=== PATIENT | male | born 1985 | race Caucasian/White ===

== ENCOUNTER 2019-09-17 20:07 | Emergency (ER) | payer OTHER ==
[~2019-09-17] VITALS: Ht 172.7 cm; Wt 100.0 kg
[2019-09-17 21:33] LABS: BASO # 0.1 10^3/uL (0.0-0.2); BASO % 0.4 % (0.0-1.0); EOS # 0.2 10^3/uL (0.0-0.5); EOS % 1.2 % (0.0-3.0); HEMATOCRIT 43.7 % (42.0-52.0); HEMOGLOBIN 15.2 g/dl (13.5-17.5); LYMPH # 2.2 10^3/uL (1.5-5.0); LYMPH % 16.7 % (24.0-44.0); MEAN CORPUSCULAR HEMOGLOBIN 30.1 pg (27.0-33.0); MEAN CORPUSCULAR HGB CONC 34.8 g/dl (32.0-36.5); MEAN CORPUSCULAR VOLUME 86.5 fl (80.0-96.0); MONO # 0.8 10^3/uL (0.0-0.8); NEUTROPHILS # 9.7 10^3/uL (1.5-8.5); NEUTROPHILS % 74.8 % (36.0-66.0); PLATELET COUNT, AUTOMATED 261 10^3/uL (150-450); RED BLOOD COUNT 5.05 10^6/uL (4.30-6.10); WHITE BLOOD COUNT 12.9 10^3/uL (4.0-10.0)
[2019-09-17 21:40] VITALS: BP 141/83
[2019-09-17] MEDS ORDERED: NS 1,000 ML IV ONE (21:45)
[2019-09-17] MEDS ORDERED: ONDANSETRON 4 MG ORAL DISINTEGRATING TAB (Q0162 PER 1MG) PO ONE (22:15)
[2019-09-17 22:38] LABS: AMPHETAMINES LEVEL URINE NEGATIVE (NEGATIVE); BARBITURATES URINE NEGATIVE (NEGATIVE); BENZODIAZEPINES URINE NEGATIVE (NEGATIVE); CANNABINOIDS URINE POSITIVE (NEGATIVE); COCAINE METABOLITE URINE NEGATIVE (NEGATIVE); METHADONE URINE NEGATIVE (NEGATIVE); OPIATES URINE NEGATIVE (NEGATIVE); PHENCYCLIDINE URINE NEGATIVE (NEGATIVE)
[2019-09-17 22:40] LABS: ALBUMIN 3.9 GM/DL (3.2-5.2); ALT/SGPT 51 U/L (12-78); BILIRUBIN,DIRECT < 0.1 MG/DL (0.0-0.2); BILIRUBIN,TOTAL 0.3 MG/DL (0.2-1.0); BLOOD UREA NITROGEN 10 MG/DL (7-18); CARBON DIOXIDE LEVEL 29 MEQ/L (21-32); CHLORIDE LEVEL 106 MEQ/L (98-107); CREATININE FOR GFR 1.04 MG/DL (0.70-1.30); GLOMERULAR FILTRATION RATE > 60.0 (>60); GLUCOSE, FASTING 95 MG/DL (70-100); SODIUM LEVEL 141 MEQ/L (136-145)
--- NOTE | 2019-09-18 18:55 | ECGEPIP ---
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
== END 2019-09-17 23:32 | disposition home or self-care (01) ==
LOC: M ED 20:07
DX: F12.288 Cannabis dependence with other cannabis-induced disorder (principal); F41.9 Anxiety disorder, unspecified
CPT/HCPCS: 80047; 80048; 80076; 80307; 85025; 93005; 96360; 99284; Q0162

== ENCOUNTER 2019-09-19 22:48 | Emergency (ER) | payer OTHER ==
[~2019-09-19] VITALS: Ht 172.7 cm; Wt 104.5 kg
[2019-09-19] MEDS ORDERED: BUSP10TA PO (23:14)
[2019-09-19] MEDS ORDERED: OMEP-218 PO (23:14)
[2019-09-19] MEDS ORDERED: GABA600T4 PO (23:14)
[2019-09-19] MEDS ORDERED: QUET400T PO (23:14)
[2019-09-19] MEDS ORDERED: DULO1CAP6 PO (23:14)
[2019-09-19] MEDS ORDERED: TIZA4TAB4 PO (23:14)
[2019-09-19] MEDS ORDERED: LISI10TA4 PO (23:14)
[2019-09-19] MEDS ORDERED: MELO15TA28 PO (23:14)
[2019-09-19] MEDS ORDERED: TRAZ-252 PO (23:14)
[2019-09-19] MEDS ORDERED: CYCL10TA PO (23:14)
--- NOTE | 2019-09-19 23:37 | REPVR ---
PROCEDURE INFORMATION: Exam: CT Head Without Contrast Exam date and time: 09/19/2019 11:10 PM Age: 33 years old Clinical indication: Other: Syncope; Prior surgery; Surgery date: 6+ months; Surgery type: Skull SX as a baby TECHNIQUE: Imaging protocol: Computed tomography of the head without contrast. Radiation optimization: All CT scans at this facility use at least one of these dose optimization techniques: automated exposure control; mA and/or kV adjustment per patient size (includes targeted exams where dose is matched to clinical indication); or iterative reconstruction. COMPARISON: No relevant prior studies available. FINDINGS: Brain: There is no evidence of intracranial bleed. The trevino-white differentiation appears preserved. There is a linear area of atrophy with CSF density projecting from the bur hole into the left frontal lobe consistent with postsurgical change. There is no evidence of mass effect. Ventricles: Normal-appearing ventricles. Bones/joints: There is evidence of a old day hole left frontal bone near the vertex. Sinuses: There is mucosal thickening posterior left maxillary sinus. Mastoid air cells: The mastoid air cells appear clear. Soft tissues: Unremarkable. IMPRESSION: Chronic changes as described above. Electronically signed by: Luis Moctezuma On 09/19/2019 23:37:03 PM
[2019-09-19 23:43] LABS: BASO % 0.4 % (0.0-1.0); EOS # 0.3 10^3/uL (0.0-0.5); EOS % 3.5 % (0.0-3.0); HEMATOCRIT 43.9 % (42.0-52.0); HEMOGLOBIN 14.8 g/dl (13.5-17.5); LYMPH # 3.6 10^3/uL (1.5-5.0); MEAN CORPUSCULAR HEMOGLOBIN 29.5 pg (27.0-33.0); MEAN CORPUSCULAR HGB CONC 33.7 g/dl (32.0-36.5); MEAN CORPUSCULAR VOLUME 87.5 fl (80.0-96.0); MONO # 0.7 10^3/uL (0.0-0.8); MONO % 7.6 % (0.0-5.0); NEUTROPHILS # 4.4 10^3/uL (1.5-8.5); NEUTROPHILS % 48.1 % (36.0-66.0); PLATELET COUNT, AUTOMATED 257 10^3/uL (150-450); RED BLOOD COUNT 5.02 10^6/uL (4.30-6.10); WHITE BLOOD COUNT 9.1 10^3/uL (4.0-10.0)
[2019-09-20] MEDS ORDERED: LR 1,000 ML IV ONE
[2019-09-20 00:25] LABS: BLOOD UREA NITROGEN 12 MG/DL (7-18); CALCIUM LEVEL 8.9 MG/DL (8.5-10.1); CARBON DIOXIDE LEVEL 26 MEQ/L (21-32); CHLORIDE LEVEL 108 MEQ/L (98-107); CREATININE FOR GFR 0.96 MG/DL (0.70-1.30); GLOMERULAR FILTRATION RATE > 60.0 (>60); GLUCOSE, FASTING 125 MG/DL (70-100); POTASSIUM SERUM 3.7 MEQ/L (3.5-5.1); SODIUM LEVEL 142 MEQ/L (136-145)
[2019-09-20 01:47] VITALS: BP 121/77
--- NOTE | 2019-09-20 07:59 | ECGEPIP ---
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
== END 2019-09-20 01:48 | disposition home or self-care (01) ==
LOC: M ED 22:48
DX: R55 Syncope and collapse (principal); F33.9 Major depressive disorder, recurrent, unspecified; F41.9 Anxiety disorder, unspecified; M51.37 Other intervertebral disc degeneration, lumbosacral region; Z79.899 Other long term (current) drug therapy; Z87.891 Personal history of nicotine dependence

== ENCOUNTER 2019-09-22 23:36 | Emergency (ER) | payer OTHER ==
[~2019-09-22] VITALS: Ht 172.7 cm; Wt 106.7 kg
[~2019-09-22 23:36] MED LIST: BUSP10TA PO; CYCL10TA PO; DULO1CAP6 PO; GABA600T4 PO; LISI10TA4 PO; MELO15TA28 PO; OMEP-218 PO; QUET400T PO; TIZA4TAB4 PO; TRAZ-252 PO
[2019-09-23 00:46] LABS: BASO # 0.1 10^3/uL (0.0-0.2); BASO % 0.6 % (0.0-1.0); EOS # 0.3 10^3/uL (0.0-0.5); EOS % 3.2 % (0.0-3.0); HEMATOCRIT 42.8 % (42.0-52.0); HEMOGLOBIN 14.8 g/dl (13.5-17.5); LYMPH # 3.5 10^3/uL (1.5-5.0); LYMPH % 40.6 % (24.0-44.0); MEAN CORPUSCULAR HEMOGLOBIN 30.5 pg (27.0-33.0); MEAN CORPUSCULAR HGB CONC 34.6 g/dl (32.0-36.5); MEAN CORPUSCULAR VOLUME 88.2 fl (80.0-96.0); MONO # 0.6 10^3/uL (0.0-0.8); MONO % 7.3 % (0.0-5.0); NEUTROPHILS # 4.1 10^3/uL (1.5-8.5); NEUTROPHILS % 47.6 % (36.0-66.0); PLATELET COUNT, AUTOMATED 243 10^3/uL (150-450); RED BLOOD COUNT 4.85 10^6/uL (4.30-6.10); WHITE BLOOD COUNT 8.6 10^3/uL (4.0-10.0)
[2019-09-23 01:09] LABS: ALBUMIN 3.9 GM/DL (3.2-5.2); ALT/SGPT 49 U/L (12-78); BILIRUBIN,DIRECT < 0.1 MG/DL (0.0-0.2); BILIRUBIN,TOTAL 0.2 MG/DL (0.2-1.0); BLOOD UREA NITROGEN 12 MG/DL (7-18); CALCIUM LEVEL 8.9 MG/DL (8.5-10.1); CARBON DIOXIDE LEVEL 27 MEQ/L (21-32); CHLORIDE LEVEL 111 MEQ/L (98-107); CREATININE FOR GFR 0.97 MG/DL (0.70-1.30); GLOMERULAR FILTRATION RATE > 60.0 (>60); GLUCOSE, FASTING 113 MG/DL (70-100); POTASSIUM SERUM 3.6 MEQ/L (3.5-5.1); SODIUM LEVEL 143 MEQ/L (136-145); TOTAL PROTEIN 7.1 GM/DL (6.4-8.2)
[2019-09-23] MEDS ORDERED: ISOVUE-370 76% 100ML VIAL (Q9967) As Ordered ONE (01:41)
--- NOTE | 2019-09-23 02:12 | REPVR ---
PROCEDURE INFORMATION: Exam: CT Angiography Chest With Contrast Exam date and time: 09/23/2019 1:38 AM Age: 33 years old Clinical indication: Shortness of breath; Additional info: Chest pain, SOB, tachycardic TECHNIQUE: Imaging protocol: Computed tomographic angiography of the chest with intravenous contrast. 3D rendering: MIP and/or 3D reconstructed images were created by the technologist. Radiation optimization: All CT scans at this facility use at least one of these dose optimization techniques: automated exposure control; mA and/or kV adjustment per patient size (includes targeted exams where dose is matched to clinical indication); or iterative reconstruction. Contrast material: ISO; Contrast volume: 75 ml; Contrast route: AC; COMPARISON: CR Chest, 2 view PA, Lat 09/23/2019 12:11 AM FINDINGS: Pulmonary arteries: No focal pulmonary artery filling defect to suggest acute pulmonary embolus. Aorta: No thoracic aortic aneurysm or dissection. Lungs: Pulmonary vascular/interstitial pattern does not suggest active pulmonary edema. No suspicious lung mass or air space process. No central endobronchial lesion. Pleural space: No pleural effusion or pneumothorax. Heart: No overt cardiac enlargement or abnormal volume of pericardial fluid. Liver: Liver demonstrates fatty infiltration with focal sparing around the gallbladder fossa. Lymph nodes: No enlarged mediastinal lymph nodes. Bones/joints: Bony structures show no acute fracture or destructive process. Soft tissues: Unremarkable. IMPRESSION: 1. No evidence of acute pulmonary embolus. 2. No other acute or concerning focal intrathoracic abnormality. Electronically signed by: Demetrius Martínez On 09/23/2019 02:11:52 AM
[2019-09-23 03:12] VITALS: BP 117/72
--- NOTE | 2019-09-23 06:59 | REP ---
Clinical: Cough and dyspnea . Comparison: None . Technique: PA and lateral. Findings: The mediastinum and cardiac silhouette are normal. The lung salgado are clear and without acute consolidation, effusion, or pneumothorax. The skeletal structures are intact and normal. Impression: 1. No acute cardiopulmonary process. Electronically Signed by Rell Martinez MD 09/23/2019 06:50 A
--- NOTE | 2019-09-23 20:11 | ECGEPIP ---
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
[2019-09-24] MEDS ORDERED: PROM25TA12 PO (15:43)
== END 2019-09-23 03:23 | disposition home or self-care (01) ==
LOC: M ED 23:36
DX: F41.1 Generalized anxiety disorder (principal); F39 Unspecified mood [affective] disorder; F25.9 Schizoaffective disorder, unspecified; M54.5 Low back pain; Z79.899 Other long term (current) drug therapy
CPT/HCPCS: 36415; 71046; 71275; 80048; 80076; 85025; 93005; 93041; 94760; 99285; Q9967

== ENCOUNTER 2019-09-24 11:52 | Emergency (ER) | payer OTHER ==
[~2019-09-24] VITALS: Ht 172.7 cm; Wt 99.2 kg
[2019-09-24] MEDS ORDERED: LORazepam 1 MG TAB PO STA (12:32)
[2019-09-24] MEDS ORDERED: ONDANSETRON 4 MG ORAL DISINTEGRATING TAB (Q0162 PER 1MG) PO ONE (12:45)
[2019-09-24] MEDS ORDERED: PROMETHAZINE 25 MG TAB PO ONE ×2 (13:15→13:30)
[2019-09-24] MEDS ORDERED: PROM25TA12 PO (15:43)
[2019-09-24 15:48] VITALS: BP 139/82
== END 2019-09-24 15:49 | disposition home or self-care (01) ==
LOC: M ED 11:52
DX: F41.1 Generalized anxiety disorder (principal); F33.9 Major depressive disorder, recurrent, unspecified; F20.9 Schizophrenia, unspecified; Z79.899 Other long term (current) drug therapy
CPT/HCPCS: 99283; Q0162

== ENCOUNTER 2019-09-29 19:19 | Emergency (ER) | payer OTHER ==
[~2019-09-29] VITALS: Ht 172.7 cm; Wt 104.5 kg
[~2019-09-29 19:19] MED LIST changes: +PROM25TA12 PO
[2019-09-29 19:58] LABS: HEMATOCRIT 50.9 % (42.0-52.0); HEMOGLOBIN 17.5 g/dl (13.5-17.5); MEAN CORPUSCULAR HEMOGLOBIN 29.7 pg (27.0-33.0); MEAN CORPUSCULAR HGB CONC 34.4 g/dl (32.0-36.5); MEAN CORPUSCULAR VOLUME 86.4 fl (80.0-96.0); PLATELET COUNT, AUTOMATED 354 10^3/uL (150-450); RED BLOOD COUNT 5.89 10^6/uL (4.30-6.10); WHITE BLOOD COUNT 18.4 10^3/uL (4.0-10.0)
[2019-09-29] MEDS ORDERED: NS 1,000 ML IV ONE (20:00)
[2019-09-29 20:33] LABS: ATYPICAL LYMPH 8 % (0-5); LYMPHOCYTES 23 % (16-44); MONOCYTES 6 % (0-5); NEUTROPHILS 63 % (28-66)
[2019-09-29 20:34] LABS: ANISOCYTOSIS 1+
[2019-09-29 20:35] LABS: PLATELET ESTIMATE NORMAL (NORMAL); TEAR DROP CELLS 1+
[2019-09-29 20:38] LABS: BLOOD UREA NITROGEN 26 MG/DL (7-18); CALCIUM LEVEL 9.8 MG/DL (8.5-10.1); CARBON DIOXIDE LEVEL 29 MEQ/L (21-32); CHLORIDE LEVEL 100 MEQ/L (98-107); CREATININE FOR GFR 1.22 MG/DL (0.70-1.30); GLOMERULAR FILTRATION RATE > 60.0 (>60); GLUCOSE, FASTING 106 MG/DL (70-100); POTASSIUM SERUM 4.1 MEQ/L (3.5-5.1); SODIUM LEVEL 135 MEQ/L (136-145)
[2019-09-29 21:30] VITALS: BP 114/68
--- NOTE | 2019-09-30 05:45 | ECGEPIP ---
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
== END 2019-09-29 21:48 | disposition home or self-care (01) ==
LOC: M ED 19:19
DX: E86.0 Dehydration (principal); I95.1 Orthostatic hypotension; F41.1 Generalized anxiety disorder; Z79.899 Other long term (current) drug therapy; F17.210 Nicotine dependence, cigarettes, uncomplicated

== ENCOUNTER 2019-10-10 00:32 | Inpatient (IN) | payer OTHER ==
[~2019-10-10] VITALS: Ht 172.7 cm; Wt 104.5 kg
[2019-10-10 01:07] LABS: BASO # 0.1 10^3/uL (0.0-0.2); BASO % 0.6 % (0.0-1.0); EOS # 0.2 10^3/uL (0.0-0.5); EOS % 2.6 % (0.0-3.0); HEMOGLOBIN 14.2 g/dl (13.5-17.5); LYMPH % 45.1 % (24.0-44.0); MEAN CORPUSCULAR HEMOGLOBIN 30.2 pg (27.0-33.0); MEAN CORPUSCULAR HGB CONC 34.6 g/dl (32.0-36.5); MEAN CORPUSCULAR VOLUME 87.2 fl (80.0-96.0); MONO # 0.8 10^3/uL (0.0-0.8); MONO % 8.5 % (0.0-5.0); NEUTROPHILS # 3.7 10^3/uL (1.5-8.5); PLATELET COUNT, AUTOMATED 243 10^3/uL (150-450); WHITE BLOOD COUNT 8.9 10^3/uL (4.0-10.0)
[2019-10-10 01:40] LABS: ABG BASE EXCESS -0.3 (-2.0-2.0); ABG HCO3 24.2 MEQ/L (22.0-26.0); ABG O2 SATURATION 94.7 % (95.0-99.0); ABG PARTIAL PRESSURE CO2 39.4 mmHg (35.0-45.0); ABG PARTIAL PRESSURE O2 70.4 mmHg (75.0-100.0); ABG STANDARD HCO3 24.2 MEQ/L (22.0-26.0); ABG TOTAL CO2 25.5 MEQ/L (22.0-29.0); ABG pH (ARTERIAL) 7.407 UNITS (7.350-7.450)
[2019-10-10 01:42] LABS: BLOOD UREA NITROGEN 12 MG/DL (7-18); CALCIUM LEVEL 9.5 MG/DL (8.5-10.1); CARBON DIOXIDE LEVEL 26 MEQ/L (21-32); CHLORIDE LEVEL 110 MEQ/L (98-107); CK-MB VALUE MASS < 1.0 NG/ML (<3.6); CPK CREATINE PHOSPHOKINASE 54 U/L (39-308); ETHYL ALCOHOL (ETHANOL) < 0.003 % (0.000-0.010); GLOMERULAR FILTRATION RATE > 60.0 (>60); GLUCOSE, FASTING 139 MG/DL (70-100); MB/CK RELATIVE INDEX 1.85 (< OR =4); POTASSIUM SERUM 3.4 MEQ/L (3.5-5.1); SODIUM LEVEL 141 MEQ/L (136-145); TROPONIN I < 0.02 NG/ML (< 0.10)
[2019-10-10] MEDS ORDERED: NS 1,000 ML IV ONE ×2 (02:15→07:45)
[2019-10-10] MEDS ORDERED: ISOVUE-370 76% 100ML VIAL (Q9967) As Ordered ONE (02:18)
[2019-10-10 02:44] LABS: AMPHETAMINES LEVEL URINE NEGATIVE (NEGATIVE); BARBITURATES URINE NEGATIVE (NEGATIVE); BENZODIAZEPINES URINE NEGATIVE (NEGATIVE); CANNABINOIDS URINE NEGATIVE (NEGATIVE); COCAINE METABOLITE URINE NEGATIVE (NEGATIVE); METHADONE URINE NEGATIVE (NEGATIVE); OPIATES URINE NEGATIVE (NEGATIVE); PHENCYCLIDINE URINE NEGATIVE (NEGATIVE)
--- NOTE | 2019-10-10 02:47 | REPVR ---
PROCEDURE INFORMATION: Exam: CT Angiography Chest With Contrast Exam date and time: 10/10/2019 2:13 AM Age: 33 years old Clinical indication: Other: Hypoxia TECHNIQUE: Imaging protocol: Computed tomographic angiography of the chest with intravenous contrast. 3D rendering: MIP and/or 3D reconstructed images were created by the technologist. Radiation optimization: All CT scans at this facility use at least one of these dose optimization techniques: automated exposure control; mA and/or kV adjustment per patient size (includes targeted exams where dose is matched to clinical indication); or iterative reconstruction. Contrast material: ISO; Contrast volume: 75 ml; Contrast route: AC; COMPARISON: CT ANGIO CHEST 09/23/2019 1:45 AM FINDINGS: Pulmonary arteries: The main pulmonary artery measures 32 mm. No pulmonary embolism is identified. Aorta: The ascending thoracic aorta measures 31 mm. Other arteries: The left vertebral artery originates directly from the arch. Lungs: Minimal bibasilar fibro-atelectatic change. Pleural space: Unremarkable. No pneumothorax. No pleural effusion. Heart: Unremarkable. No cardiomegaly. No pericardial effusion. Lymph nodes: Unremarkable. No enlarged lymph nodes. Bones/joints: Unremarkable. No acute fracture. Soft tissues: Unremarkable. IMPRESSION: 1. Minimal bibasilar fibro-atelectatic change. 2. Otherwise negative CTA chest. No acute interval pulmonary embolism is identified since 09/23/2019. Electronically signed by: Raghavendra Julien On 10/10/2019 02:47:32 AM
[2019-10-10] MEDS ORDERED: POTASSIUM CHLORIDE 10 MEQ SR TABLET PO ONE (04:00)
[2019-10-10 04:20] LABS: ALBUMIN 3.7 GM/DL (3.2-5.2); ALT/SGPT 69 U/L (12-78); BILIRUBIN,DIRECT < 0.1 MG/DL (0.0-0.2); BILIRUBIN,TOTAL 0.2 MG/DL (0.2-1.0); MAGNESIUM LEVEL 2.1 MG/DL (1.8-2.4); TOTAL PROTEIN 6.6 GM/DL (6.4-8.2)
[2019-10-10] MEDS ORDERED: TRAM50TA2 PO (04:24)
[2019-10-10] MEDS ORDERED: DULO1CAP5 PO (04:24)
[2019-10-10] MEDS ORDERED: PROAAER10 INH (04:24)
[2019-10-10] MEDS ORDERED: PROM25TA12 PO (04:24)
[2019-10-10 04:26] LABS: HEMOGLOBIN A1c 6.1 %
[2019-10-10] MEDS ORDERED: ACETAMINOPHEN TAB 650MG DOSE (2X325MG) PO PRN (04:30)
[2019-10-10] MEDS ORDERED: NS 1,000 ML IV SCH (05:00)
[2019-10-10] MEDS ORDERED: traMADol 50 MG TAB PO PRN (05:00)
--- NOTE | 2019-10-10 05:02 | HPEPDOC ---
[facility] Medical History & Physical Date of Admission Oct 10, 2019 Date of Service: Oct 10, 2019 Attending Physician: KENNY VALLADARES MD History and Physical CHIEF COMPLAINT: Feelings of heart racing\\palpitations HISTORY OF PRESENT ILLNESS: Patient is a 33-year-old male who presented to the [facility] emergency department for a complaint of feeling of his heart racing. He stated that he went to lie down to go to bed and upon lying down, he felt his heart racing and could feel it pounding out of his chest. He denies any shortness of breath at this time, however, stated that when he gets u p to exert himself he does have some mild redness of breath. He denies any cough. He denies any exposure to sick contacts. He stated that he is recently in the emergency department on 09/29/2019 and was given albuterol inhaler, which is been using 2 puffs a day, 4 times daily. He denies any history of deep vein thrombosis or pulmonary embolism. He states that currently he feels fine resting. In the emergency department EKG demonstrated sinus tachycardia with a heart rate of 139. Patient had oxygen saturations are 96% on room air. An arterial blood gas obtained demonstrated a PaO2 of 70. His CT angiogram demonstrating minimal bibasilar fibrotic changes, but otherwise negative. REVIEW OF SYSTEMS: CONSTITUTIONAL: Denies fevers, chills. Denies unintentional weight loss. Denies night sweats. HEENT:. Denies dysphagia. Denies odynophagia. Denies changes in his vision. Denies migraines. CARDIOVASCULAR:. Denies chest pain, denies chest pressure. Admits to feelings of his heart racing. RESPIRATORY: Admits to shortness of breath on exertion. Denies shortness of breath at rest. Denies cough. Denies wheezing. GASTROINTESTINAL: Denies abdominal pain. Denies nausea, vomiting, diarrhea, constipation. GENITOURINARY:. Denies dysuria, increased frequency or urgency. SKIN:. Denies any rash or lesions. MUSCULOSKELETAL:. Admits to chronic back pain. Denies any muscle weakness. NEUROLOGICAL: Denies any changes in gait or speech. PSYCHIATRIC: Admits to history of depression, anxiety. ENDOCRINE:. Denies heat intolerance, or, cold intolerance. Denies history of diabetes. HEMATOLOGIC/LYMPHATIC: Denies history of easy bruising or bleeding. Denies history deep vein thrombosis or pulmonary embolism. PAST MEDICAL/SURGICAL HISTORY: Chronic Hypertension Chronic back pain. Depression,\\anxiety. Plastic calvarium prosthesis as a child. Screws in his knees. SOCIAL HISTORY: Patient was at home with his . He is a former smoker. He smoked approximately one pack per day since the age of 17 and quit 3 years ago. He does smoke marijuana. He denies any IV or illicit drug use FAMILY HISTORY: Patient's mother. Father are alive. His mother has a history of deep vein thrombosis and pulmonary embolism in the past. He has brothers and sisters who are all alive and well without any known medical conditions. ALLERGIES: Please see below. HOME MEDICATIONS: Please see below. PHYSICAL EXAMINATION: VITAL SIGNS: Temperature 98.8, pulse 126, respiratory rate 18, blood pressure 136\\88, pulse oximetry 96 % on room air. GENERAL APPEARANCE: Patient Is awake, alert and oriented. He does not appear in any acute distress, he is lying comfortable in stretcher. HEENT: Atraumatic, normocephalic. Eyes nonicteric. Trachea is midline. Patient has no teeth. It is mucous membranes are pink and moist. CARDIOVASCULAR:, Normal S1, S2, tachycardic, regular rhythm, no clicks, rubs or murmurs. No JVD. LUNGS:. Clear vesicular breath sounds bilaterally. Good respiratory effort. No wheezes, rhonchi or rales. Symmetric chest expansion. No accessory muscle use. ABDOMEN:. Soft, nondistended, nontender, no rebound tenderness or guarding. Normoactive bowel sounds throughout. EXTREMITIES: No edema, no calf tenderness. Full and equal pulses bilateral upper and lower extremities NEUROLOGICAL: No focal Neurological deficits. PSYCHIATRIC: Mood and Affect are appropriate. LABORATORY DATA: Immature Granulocyte % (Auto) 1.2, Neutrophils (%) (Auto) 42.0, Lymphocytes (%) (Auto) 45.1H, Monocytes (%) (Auto) 8.5H, Eosinophils (%) (Auto) 2.6, Basophils (%) (Auto) 0.6, Neutrophils # (Auto) 3.7, Lymphocytes # (Auto) 4.0, Monocytes # (Auto) 0.8, Eosinophils # (Auto) 0.2, Basophils # (Auto) 0.1, Nucleated Red Blood Cells % (auto) 0.0, Anion Gap 5L, Glomerular Filtration Rate > 60.0, Estimated Mean Plasma Glucose 128H, Hemoglobin A1c 6.1, Calcium Level 9.5, Magnesium Level 2.1, Total Bilirubin 0.2, Direct Bilirubin < 0.1, Aspartate Amino Transf (AST/SGOT) 25, Alanine Aminotransferase (ALT/SGPT) 69, Alkaline Phosphatase 113, Total Creatine Kinase 54, Creatine Kinase MB < 1.0, Creatine Kinase MB Relative Index 1.85, Troponin I < 0.02, C-Reactive Protein, Quantitative 0.30, Total Protein 6.6, Albumin 3.7, Albumin/Globulin Ratio 1.28, Ethyl Alcohol Level < 0.003 Blood Gas Bicarbonate Standard 24.2, Arterial Blood pH 7.407, Arterial Blood Partial Pressure CO2 39.4, Arterial Blood Partial Pressure O2 70.4L, Arterial Blood Total CO2 25.5, Arterial Blood HCO3 24.2, Arterial Blood Base Excess -0.3, Arterial Blood Oxygen Saturation 94.7L Urine Opiates Screen NEGATIVE, Urine Methadone Screen NEGATIVE, Urine Barbiturates Screen NEGATIVE, Urine Phencyclidine Screen NEGATIVE, Urine Amphetamines Screen NEGATIVE, Urine Benzodiazepines Screen NEGATIVE, Urine Cocaine Metabolite Screen NEGATIVE, Urine Cannabinoids Screen NEGATIVE IMAGING: CT Angiography Chest With Contrast COMPARISON: CT ANGIO CHEST 09/23/2019 "IMPRESSION: 1. Minimal bibasilar fibro-atelectatic change. 2. Otherwise negative CTA chest. No acute interval pulmonary embolism is identified since 09/23/2019. " MICROBIOLOGY: 10/10/19 Respiratory Virus Panel (PCR) ([facility]), Received Pending ASSESSMENT: Patient is a 33-year-old male who presented with complaints of feeling to his heart racing and will be admitted for evaluation of tachycardia and hypoxia. PLAN: 1. Tachycardia. -Patient is tachycardic with a rate of 134 on admission. Review of his previous hospital visits indicated that he has a heart rate of 120 at baseline. CTA obtained in the ER today and on 09/23/2019 were both negative for pulmonary embolism. Patient has no history of sick contacts. No cough. No fever, no elevation in his white blood cell count. Infectious etiology is unlikely, although cannot be completely ruled out -Will place on telemetry monitoring overnight -Will avoid nebulizers, given patient's tachycardia, currently no wheezing on exam -Patient is on Seroquel daily at bedtime this medication can cause orthostatic hypotension and tachycardia. Patient has been in the ER several times for similar complaints. Will hold Seroquel overnight. 2. Hypoxia -Differential includes early pneumonia, viral infection, chronic alveolar hypoventilation, early interstitial lung disease, asthma, Carbon Monoxide poisoning -CT imaging demonstrating some fibro-atelectatic changes in the bibasilar segments of the lungs. This appears to be present on patient's previous imaging as well. He has a history of smoking as well as chronic cannabinoid use. Signif icant of these findings is unclear -Atrial blood gas obtained in the emergency department demonstrating a PaO2 of 70 which correlates approximately with a SPO2 of 95% -Patient currently denying any shortness of breath, however, states he has some short of breath on exertion -Continuous pulse oximetry -Will check Carboxyhemoglobin -Respiratory panel is pending 3. Chronic Hypertension -Will continue patient's home lisinopril 4. Mild Hypokalemia -Possibly due to nebs -K is 3.4. -We'll replete & f/u Mag 5. Chronic back pain -Will continue patient's meloxicam, tizanidine, tramadol, gabapentin 6. Depression & anxiety -Continue patient's buspirone and duloxetine -Will hold patient's Seroquel as reported side effects include orthostatic hypotension and tachycardia DVT prophylaxis: Heparin subcutaneous Dispo: likely home after less than 2 midnight's stay. Home Medications Scheduled Buspirone HCl (Buspirone HCl) 10 Mg Tablet, 10 MG PO TID Cyclobenzaprine HCl (Cyclobenzaprine HCl) 10 Mg Tablet, 10 MG PO BID Duloxetine Hcl (Duloxetine HCl) 60 Mg Capsule.dr, 60 MG PO DAILY TAKES WITH A 30MG FOR 90MG TOTAL: INCREASED FROM 60MG TO 90MG ON 10/09/2019 Duloxetine Hcl (Duloxetine HCl) 30 Mg Capsule.dr, 30 MG PO DAILY TAKES WITH 60MG FOR 90MG TOTAL; INCREASED FROM 60MG TO 90MG ON 10/09/2019. HAS NOT STARTED YET. Gabapentin (Gabapentin) 600 Mg Tablet, 600 MG PO TID Lisinopril (Lisinopril) 10 Mg Tablet, 10 MG PO QHS Meloxicam (Meloxicam) 15 Mg Tablet, 15 MG PO DAILY TAKES AT NOON Omeprazole (Omeprazole) 20 Mg Capsule.dr, 20 MG PO BID Quetiapine Fumarate (Quetiapine Fumarate) 400 Mg Tablet, 400 MG PO QHS Tizanidine HCl (Tizanidine HCl) 4 Mg Tablet, 4 MG PO TID Trazodone HCl (Trazodone HCl) 50 Mg Tablet, 50 MG PO QHS Scheduled PRN Albuterol Sulfate (Proair Hfa) 8.5 Gm Hfa.aer.ad, 2 PUFF INH QID PRN for SHORTNESS OF BREATH Promethazine HCl (Promethazine HCl) 25 Mg Tablet, 25 MG PO Q6H PRN for NAUSEA OR VOMITING Tramadol HCl (Tramadol HCl) 50 Mg Tablet, 50 MG PO BID PRN for PAIN HAS NOT STARTED YET Allergies Coded Allergies: No Known Allergies (Unverified , 09/17/19) A-FIB/CHADSVASC A-FIB History Current/History of A-Fib/PAF?: No GME ATTESTATION GME ATTESTATION My faculty preceptor for this patient encounter was physically present during the encounter and was fully available. All aspects of the patient interview, examination, medical decision making process, and medical care plan development were reviewed and approved by the faculty preceptor. The faculty preceptor is aware and concurs with the plan as stated in the body of this note and will attest to such by his/her cosignature. ATTENDING NOTE Please see my addendum from 10/10/19 I reviewed and edited the H&P and agree with the findings as documented. JOSEFINA SMITH DO Oct 10, 2019 05:02 KENNY VALLADARES MD Oct 10, 2019 19:39
--- NOTE | 2019-10-10 05:05 | IPNPDOC ---
Text Note Date of Service The patient was seen on 10/10/19. NOTE Mr. Daniel is a 33 yr old w a hx of chronic HTN, obesity, anxiety who presen shoshana w c/o of palpitations. He has been coughing for several weeks and was prescribed inhalers; he denies having a hx of COPD or Asthma and was not able to explain why he was prescribed inhalers. Per d/w he had dyspnea on exertion and his ABG showed a PCO2 of 70.4. 1. Tachycardia - telemetry, IVF, f/u Mag & EKG 2. Hypoxia (PCO2 70.4) - pulse ox, supplemental O2, f/u respiratory panel, if negative will consider testing to r/o COVID, f/u VBG in AM 3. Mild Hypokalemia replete K & f/u Mag 4. Obesity w BMI of 35. Complicates care - f/u A1C and w PCP for sleep apnea screening rest per 's note. VS,Fishbone, I+O VS, Fishbone, I+O Laboratory Tests 10/10/19 01:02 Vital Signs Date Time Temp Pulse Resp B/P (MAP) Pulse Ox O2 Delivery O2 Flow Rate FiO2 10/10/19 04:15 123 142/92 (109) 94 10/10/19 01:00 Room Air 10/10/19 00:40 98.8 18 I&O- Last 24 Hours up to 6 AM 10/10/19 06:00 Intake Total 1000 ml Balance 1000 ml KENNY VALLADARES MD Oct 10, 2019 05:05
[2019-10-10 05:59] LABS: VENOUS BASE EXCESS -4.9 (-2.0-2.0); VENOUS HCO3 19.2 MEQ/L (23.0-27.0); VENOUS O2 SATURATION 98.1 % (60.0-80.0); VENOUS PARTIAL PRESSURE CO2 33.1 mmHg (38.0-50.0); VENOUS PARTIAL PRESSURE O2 114.4 mmHg (30.0-50.0); VENOUS PH 7.382 UNITS (7.330-7.430); VENOUS STANDARD HCO3 20.5 MEQ/L; VENOUS TOTAL CO2 20.2 MEQ/L (24.0-28.0)
[2019-10-10 06:00] VITALS: BP 138/99; O2SAT 97
[2019-10-10] MEDS ORDERED: HEPARIN SOD (PORCINE) 5000 UNITS/ML VIAL (J1644 PER 1000UNITS) SQ SCH (06:00)
[2019-10-10 08:00] VITALS: O2SAT 98
--- NOTE | 2019-10-10 08:14 | REP ---
Portable chest x-ray: Single view. History: Hypoxia. Comparison chest x-ray September 23, 2019. Findings: The lungs are under aerated as before. There is mild bibasilar plate-like atelectasis. No infiltrate is seen. Pleural angles are sharp. Cardiomediastinal silhouette is unremarkable. Impression: Low level of inspiration. Bibasilar plate-like atelectasis. Electronically Signed by Eric Sweeney MD 10/10/2019 08:05 A
[2019-10-10] MEDS ORDERED: tiZANidine 4 MG TAB PO SCH (09:00)
[2019-10-10] MEDS ORDERED: busPIRone 10 MG TAB PO SCH (09:00)
[2019-10-10] MEDS ORDERED: GABAPENTIN 300 MG CAP PO SCH (09:00)
[2019-10-10] MEDS ORDERED: CYCLOBENZAPRINE 10MG TABLET PO SCH (09:00)
[2019-10-10] MEDS ORDERED: OMEPRAZOLE 20 MG CAP PO SCH (09:00)
[2019-10-10] MEDS ORDERED: DULoxetine 30 MG CAP (CYMBALTA) PO SCH ×2 (09:00)
[2019-10-10] MEDS ORDERED: MELOXICAM (MOBIC) 7.5 MG TAB PO SCH (12:00)
--- NOTE | 2019-10-10 14:30 | ECGEPIP ---
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
[2019-10-10] MEDS ORDERED: traZODone 50 MG TAB PO SCH (21:00)
[2019-10-10] MEDS ORDERED: lisinopriL 10 MG TAB PO SCH (21:00)
[2019-10-11] MEDS ORDERED: INFLUENZA QUADRIVALENT PF VACCINE 0.5ML SYRINGE (90686) IM ONE (09:00)
== END 2019-10-10 11:03 | disposition home or self-care (01) | DRG 144 ==
LOC: M ED 00:32 → M ED INP 03:25 → ENRESERVDT 04:29 → ENRESERVTM 04:29 → M MSPAV 05:15
PROVIDERS: ADMIT Internal Medicine; ATTEND Internal Medicine
DX: R09.02 Hypoxemia (principal); I10 Essential (primary) hypertension; E87.6 Hypokalemia; M54.9 Dorsalgia, unspecified; F32.9 Major depressive disorder, single episode, unspecified; F41.9 Anxiety disorder, unspecified; R00.0 Tachycardia, unspecified; R00.2 Palpitations; E66.9 Obesity, unspecified; Z68.35 Body mass index [BMI] 35.0-35.9, adult; Z11.59 Encounter for screening for other viral diseases; Z79.899 Other long term (current) drug therapy

== ENCOUNTER → 2019-10-22 | Outpatient (CLI) | payer OTHER ==
[~2019-10-22] MED LIST changes: +CYCL-707 PO; -CYCL10TA PO; +DULO1CAP5 PO; +PROAAER10 INH; +TRAM50TA2 PO
[2019-10-22 18:13] LABS: PLATELET COUNT, AUTOMATED 231 10^3/uL (150-450)
[2019-10-22 18:24] LABS: INR 0.98; PARTIAL THROMBOPLASTIN TIME 27.4 SECONDS (25.0-38.4); PROTHROMBIN TIME 12.7 SECONDS (11.8-14.0)
== END ==
LOC: M LAB 17:39
PROVIDERS: ATTEND Physical Medicine & Rehabilitation
DX: Z01.818 Encounter for other preprocedural examination (principal)

== ENCOUNTER 2019-11-14 00:07 | Emergency (ER) | payer OTHER ==
[~2019-11-14] VITALS: Ht 172.7 cm; Wt 100.0 kg
[2019-11-14] MEDS ORDERED: NS 1,000 ML IV ONE (00:45)
[2019-11-14 00:54] LABS: BASO # 0.1 10^3/uL (0.0-0.2); BASO % 0.5 % (0.0-1.0); EOS # 0.2 10^3/uL (0.0-0.5); EOS % 2.4 % (0.0-3.0); HEMATOCRIT 43.2 % (42.0-52.0); HEMOGLOBIN 14.9 g/dl (13.5-17.5); LYMPH # 4.1 10^3/uL (1.5-5.0); LYMPH % 42.4 % (24.0-44.0); MEAN CORPUSCULAR HEMOGLOBIN 29.7 pg (27.0-33.0); MEAN CORPUSCULAR HGB CONC 34.5 g/dl (32.0-36.5); MEAN CORPUSCULAR VOLUME 86.1 fl (80.0-96.0); MONO # 0.9 10^3/uL (0.0-0.8); MONO % 9.4 % (0.0-5.0); NEUTROPHILS # 4.4 10^3/uL (1.5-8.5); NEUTROPHILS % 44.6 % (36.0-66.0); PLATELET COUNT, AUTOMATED 244 10^3/uL (150-450); RED BLOOD COUNT 5.02 10^6/uL (4.30-6.10); WHITE BLOOD COUNT 9.8 10^3/uL (4.0-10.0)
[2019-11-14 01:00] LABS: BLOOD UREA NITROGEN 13 MG/DL (7-18); CALCIUM LEVEL 9.2 MG/DL (8.5-10.1); CARBON DIOXIDE LEVEL 26 MEQ/L (21-32); CHLORIDE LEVEL 105 MEQ/L (98-107); CK-MB VALUE MASS 1.2 NG/ML (<3.6); CPK CREATINE PHOSPHOKINASE 95 U/L (39-308); CREATININE FOR GFR 0.92 MG/DL (0.70-1.30); GLOMERULAR FILTRATION RATE > 60.0 (>60); GLUCOSE, FASTING 98 MG/DL (70-100); MB/CK RELATIVE INDEX 1.26 (< OR =4); POTASSIUM SERUM 3.7 MEQ/L (3.5-5.1); SODIUM LEVEL 140 MEQ/L (136-145); TROPONIN I < 0.02 NG/ML (< 0.10)
[2019-11-14 01:01] LABS: ABG BASE EXCESS 0.2 (-2.0-2.0); ABG O2 SATURATION 97.7 % (95.0-99.0); ABG PARTIAL PRESSURE CO2 41.3 mmHg (35.0-45.0); ABG PARTIAL PRESSURE O2 99.2 mmHg (75.0-100.0); ABG STANDARD HCO3 24.6 MEQ/L (22.0-26.0); ABG TOTAL CO2 26.3 MEQ/L (22.0-29.0)
[2019-11-14 01:30] VITALS: BP 134/86
--- NOTE | 2019-11-14 03:26 | REP ---
Clinical: Acute chest pain . Comparison: 10/10/2019 . Findings: The mediastinum and cardiac silhouette are stable and within normal limits for portable technique. The lung salgado are clear without acute consolidation, effusion, or pneumothorax. Skeletal structures are intact. Impression: Limited by poor inspiratory effort. No acute cardiopulmonary process appreciated. Electronically Signed by Rell Martinez MD 11/14/2019 03:16 A
--- NOTE | 2019-11-14 08:41 | ECGEPIP ---
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
== END 2019-11-14 01:50 | disposition home or self-care (01) ==
LOC: M ED 00:07
DX: F12.180 Cannabis abuse with cannabis-induced anxiety disorder (principal); F41.9 Anxiety disorder, unspecified; Z79.899 Other long term (current) drug therapy

== ENCOUNTER → 2019-12-12 | Outpatient (CLI) | payer OTHER | LOC: M LABSMTC 09:50 | PROVIDERS: ATTEND Physician Assistant | DX: Z03.818 Encounter for observation for suspected exposure to other biological agents ruled out (principal); Z11.59 Encounter for screening for other viral diseases ==

== ENCOUNTER 2019-12-26 15:20 | Inpatient (IN) | payer MEDICAID, OTHER ==
[~2019-12-26] VITALS: Ht 172.7 cm; Wt 112.3 kg
[~2019-12-26 15:20] MED LIST changes: +CELE10TA PO; +CELE20TA; +CELE20TA PO; +CELE40TA; +CITA20TA6 PO; +CITA40TA6 PO; +DIPH25CA32 PO; +DULO1CAP4 PO; +GABA-845 PO; +HALO5TA PO; +HYDR-3715 PO; +HYDR-3716 PO; +HYDR-4514 PO; +HYDR1TAB33 PO; +HYDR50TA30; +HYDR50TA70 PO; +IBUP200T45 PO; +IBUPOTC PO; +INVE234I IM; +LAMI25TA PO; +LAMO25TA4 PO; +LISI10TA22 PO; -LISI10TA4 PO; +LISI20TA33 PO; +MIRT-62 PO; +NICO14PA TD; +NICO21PAT TD; +OMEP1CAP73; +OMEP1CAP73 PO; +PRED20TA PO; +PROV108A INH; +QUET200T2 PO; +SERO400T; +TEST200I14 IM; +TRAZ-257 PO; +TRAZ1TAB10 PO; +TRAZ1TAB6 PO; +VICO7.5T12 PO
[2019-12-26 16:10] LABS: HEMATOCRIT 42.5 % (42.0-52.0); MEAN CORPUSCULAR HEMOGLOBIN 29.8 pg (27.0-33.0); MEAN CORPUSCULAR HGB CONC 32.9 g/dl (32.0-36.5); MEAN CORPUSCULAR VOLUME 90.4 fl (80.0-96.0); PLATELET COUNT, AUTOMATED 227 10^3/uL (150-450); WHITE BLOOD COUNT 13.3 10^3/uL (4.0-10.0)
[2019-12-26 16:26] LABS: AMPHETAMINES LEVEL URINE NEGATIVE (NEGATIVE); BARBITURATES URINE NEGATIVE (NEGATIVE); BENZODIAZEPINES URINE NEGATIVE (NEGATIVE); CANNABINOIDS URINE POSITIVE (NEGATIVE); COCAINE METABOLITE URINE NEGATIVE (NEGATIVE); METHADONE URINE NEGATIVE (NEGATIVE); OPIATES URINE NEGATIVE (NEGATIVE); PHENCYCLIDINE URINE NEGATIVE (NEGATIVE)
[2019-12-26 16:38] LABS: ACETAMINOPHEN LEVEL < 2.0 UG/ML (10.0-30.0); ALBUMIN 3.6 GM/DL (3.2-5.2); ALT/SGPT 63 U/L (12-78); BILIRUBIN,DIRECT < 0.1 MG/DL (0.0-0.2); BILIRUBIN,TOTAL 0.3 MG/DL (0.2-1.0); BLOOD UREA NITROGEN 14 MG/DL (7-18); CALCIUM LEVEL 9.2 MG/DL (8.5-10.1); CARBON DIOXIDE LEVEL 28 MEQ/L (21-32); CHLORIDE LEVEL 106 MEQ/L (98-107); CREATININE FOR GFR 1.11 MG/DL (0.70-1.30); ETHYL ALCOHOL (ETHANOL) < 0.003 % (0.000-0.010); GLOMERULAR FILTRATION RATE > 60.0 (>60); GLUCOSE, FASTING 113 MG/DL (70-100); POTASSIUM SERUM 3.9 MEQ/L (3.5-5.1); SALICYLATE LEVEL < 1.7 MG/DL (5.0-30.0); SODIUM LEVEL 142 MEQ/L (136-145); THYROID STIMULATING HORMONE 0.674 uIU/ML (0.358-3.740); TOTAL PROTEIN 6.7 GM/DL (6.4-8.2)
--- NOTE | 2019-12-26 19:28 | REPVR ---
PROCEDURE INFORMATION: Exam: CT Head Without Contrast Exam date and time: 12/26/2019 6:46 PM Age: 34 years old Clinical indication: Altered mental status/memory loss and visual disturbance; Other: Hallucinations TECHNIQUE: Imaging protocol: Computed tomography of the head without contrast. Radiation optimization: All CT scans at this facility use at least one of these dose optimization techniques: automated exposure control; mA and/or kV adjustment per patient size (includes targeted exams where dose is matched to clinical indication); or iterative reconstruction. COMPARISON: CT Head without contrast 09/19/2019 11:15 PM FINDINGS: Brain: No hemorrhage or edema seen. An area of left frontal lobe encephalomalacia is again seen near calvarial day hole. Perivascular spaces again demonstrated in the left lentiform nucleus. Ventricles: No ventriculomegaly. Bones/joints: There is an old convexity left parietal calvarial day hole. Sinuses: Moderate mucosal thickening in the visualized left maxillary sinus. No fluid levels. Mastoid air cells: Visualized mastoid air cells are well aerated. Soft tissues: Unremarkable. IMPRESSION: No acute intracranial abnormality seen. Electronically signed by: Joy Wolfe On 12/26/2019 19:27:55 PM
[2019-12-26] MEDS ORDERED: VITA500C24 PO (19:33)
[2019-12-26] MEDS ORDERED: MOM 30ML SUSPENSION UDC PO PRN (20:30)
[2019-12-26] MEDS ORDERED: MAALOX 30 ML SUSP *UDC PO PRN (20:30)
[2019-12-26] MEDS ORDERED: PROMETHAZINE 25 MG TAB PO PRN (20:30)
[2019-12-26 22:54] VITALS: BP 132/98
[2019-12-26] MEDS: CYCLOBENZAPRINE 10MG TABLET PO SCH (23:46)
[2019-12-26] MEDS: traZODone 50 MG TAB PO PRN (23:46)
[2019-12-26] MEDS: GABAPENTIN 300 MG CAP PO SCH (23:46)
[2019-12-26] MEDS: OMEPRAZOLE 20 MG CAP PO SCH (23:46)
[2019-12-26] MEDS: DULoxetine 30 MG CAP (CYMBALTA) PO SCH (23:47)
[2019-12-26] MEDS: QUEtiapine FUMARATE 200 MG TAB PO SCH (23:47)
[2019-12-26] MEDS: busPIRone 10 MG TAB PO SCH (23:47)
[2019-12-26] MEDS: ACETAMINOPHEN TAB 650MG DOSE (2X325MG) PO PRN (23:47)
[2019-12-27 06:24] VITALS: BP 124/77
[2019-12-27] MEDS: CYCLOBENZAPRINE 10MG TABLET PO SCH ×2 (08:13→22:44)
[2019-12-27] MEDS: busPIRone 10 MG TAB PO SCH ×3 (08:13→22:44)
[2019-12-27] MEDS: ASCORBIC ACID 500 MG TAB PO SCH (08:13)
[2019-12-27] MEDS: GABAPENTIN 300 MG CAP PO SCH ×3 (08:13→22:44)
[2019-12-27] MEDS: OMEPRAZOLE 20 MG CAP PO SCH ×2 (08:13→22:44)
[2019-12-27] MEDS ORDERED: DULoxetine 30 MG CAP (CYMBALTA) PO SCH (09:00)
--- NOTE | 2019-12-27 11:42 | HPEPDOC ---
General Date of Admission Dec 26, 2019 at 20:22 Date of Service: Dec 27, 2019 Chief Complaint The patient is a 34-year-old male admitted with a reason for visit of Unspecified Psychotic Disorder. Source: Patient History of Present Illness 34 year old with PMH of obesity, hypertension, anxiety, depression, back pain has been admitted to [facility] for psychosis. Was having visual hallucinations and thought of harming others and harming himself. I am seeing the patient for medi sandie history and physical. Today complaining of back pain about 4/10 dull aching in nature which sometimes radiate down the right leg so needs a cane to walk as then the leg suddenly gives way. Home Medications Scheduled Ascorbic Acid (Vitamin C) 500 Mg Capsule, 500 MG PO DAILY, (Reported) Buspirone HCl (Buspirone HCl) 10 Mg Tablet, 10 MG PO TID, (Reported) Cyclobenzaprine HCl (Cyclobenzaprine HCl) 10 Mg Tablet, 10 MG PO BID, (Reported) Duloxetine Hcl (Duloxetine HCl) 60 Mg Capsule.dr, 60 MG PO QAM, (Reported) Duloxetine Hcl (Duloxetine HCl) 30 Mg Capsule.dr, 30 MG PO DAILY, (Reported) afternoon Gabapentin (Gabapentin) 600 Mg Tablet, 600 MG PO TID, (Reported) Lisinopril (Lisinopril) 10 Mg Tablet, 10 MG PO QHS, (Reported) Meloxicam (Meloxicam) 15 Mg Tablet, 15 MG PO DAILY, (Reported) TAKES AT NOON Omeprazole (Omeprazole) 20 Mg Capsule.dr, 20 MG PO BID, (Reported) Quetiapine Fumarate (Quetiapine Fumarate) 400 Mg Tablet, 400 MG PO QHS, (Re ported) Trazodone HCl (Trazodone HCl) 50 Mg Tablet, 50 MG PO QHS, (Reported) Scheduled PRN Promethazine HCl (Promethazine HCl) 25 Mg Tablet, 25 MG PO Q6H PRN for NAUSEA OR VOMITING, (Reported) Allergies Coded Allergies: No Known Allergies (Unverified , 09/17/19) Past Medical History Medical History Chronic back pain due to slipped discs L4 and L5 in May 2019 getting injections. Sinus tachycardia Schizoaffective disorder Chronic Hypertension Prediabetic HgbA1c 6.1 Obesity BMI 35 Marijuana Use Depression Anxiety. Plastic calvarium prosthesis as a child. as fell out of crib. Screws in his knees Family History Father are alive and well. His mother has a history of deep vein thrombosis and pulmonary embolism in the past. He has brothers and sisters who are all alive and well without any known medical conditions. Social History * Smoker: former Smoker Alcohol: occationally Drugs: marijuana A-FIB/CHADSVASC A-FIB History Current/History of A-Fib/PAF?: No Review of Systems Constitutional: Denies: Chills, Fever, Night Sweats Eyes: Denies: Pain, Vision change ENT: Denies: Head Aches, Ear Pain, Dysphagia Skin: Denies: Rash, Lesions, Breakdown Pulmonary: Denies: Dyspnea, Cough Cardiovascular: Denies: Chest Pain, Palpitations, Orthopnea, Paroxysmal Noc. Dyspnea, Lt Headedness Gastrointestinal: Denies: Nausea, Vomiting, Abdominal Pain, Diarrhea Genitourinary: Denies: Dysuria, Frequency, Incontinence, Retention Musculoskeletal: Reports: Back Pain Physical Examination General Exam: Positive: Alert, Cooperative, No Acute Distress Eye Exam: Positive: PERRLA, Conjunctiva & lids normal, EOMI; Negative: Sclera icteric ENT Exam: Positive: Atraumatic, Mucous membr. moist/pink, Pharynx Normal Neck Exam: Positive: Supple; Negative: JVD, thyromegaly Chest Exam: Positive: Clear to auscultation, Normal air movement Heart Exam: Positive: Tachycardic, Regular Rhythm, Normal S1, Normal S2; Negative: Murmurs, Rubs Abdomen Exam: Positive: Normal bowel sounds, Soft; Negative: Tenderness, Hepatospenomegaly Extremity Exam: Positive: Normal pulses; Negative: Clubbing, Cyanosis, Edema Neuro Exam: Positive: Normal Gait, Normal Speech, Strength at 5/5 X4 ext, Normal Tone Vital Signs Vital Signs Date Time Temp Pulse Resp B/P (MAP) Pulse Ox O2 Delivery O2 Flow Rate FiO2 12/27/19 06:24 98.3 91 16 124/77 (93) 96 Room Air Laboratory Data Labs 24H Laboratory Tests 2 12/26/19 15:54: Nucleated Red Blood Cells % (auto) 0.0, Anion Gap 8, Glomerular Filtration Rate > 60.0, Calcium Level 9.2, Total Bilirubin 0.3, Direct Bilirubin < 0.1, Aspartate Amino Transf (AST/SGOT) 26, Alanine Aminotransferase (ALT/SGPT) 63, Alkaline Phosphatase 96, Total Protein 6.7, Albumin 3.6, Albumin/Globulin Ratio 1.2, Thyroid Stimulating Hormone (TSH) 0.674, Salicylates Level < 1.7L, Urine Opiates Screen NEGATIVE, Urine Methadone Screen NEGATIVE, Acetaminophen Level < 2.0L, Urine Barbiturates Screen NEGATIVE, Urine Phencyclidine Screen NEGATIVE, Urine Amphetamines Screen NEGATIVE, Urine Benzodiazepines Screen NEGATIVE, Urine Cocaine Metabolite Screen NEGATIVE, Urine Cannabinoids Screen POSITIVEH, Ethyl Alcohol Level < 0.003 CBC/BMP Laboratory Tests 12/26/19 15:54 Assessment/Plan 34 year old with PMH of obesity, hypertension, anxiety, depression, back pain has been admitted to [facility] for psychosis. Was having visual hallcinations and thought of harming others and harming himself. I am seeing the patient for medical history and physical. Chronic back pain Tylenol and meloxicam, cymbalta, gabapentin, flexaril. Hypertension lisinopril GERD omeprazole. H/o Sinus tachycardia. out patient work up Psychiatric issues as per [facility] Plan / VTE VTE Prophylaxis Ordered?: No ARVIND ECKERT MD Dec 27, 2019 10:35
[2019-12-27] MEDS: MELOXICAM (MOBIC) 7.5 MG TAB PO SCH (11:57)
[2019-12-27] MEDS: DULoxetine 30 MG CAP (CYMBALTA) PO SCH (13:34)
[2019-12-27 15:26] VITALS: BP 141/79
[2019-12-27] MEDS: QUEtiapine FUMARATE 200 MG TAB PO SCH (23:28)
[2019-12-27] MEDS: QUEtiapine FUMARATE 50MG TAB PO SCH (23:29)
[2019-12-27] MEDS: ACETAMINOPHEN TAB 650MG DOSE (2X325MG) PO PRN (23:30)
[2019-12-28 06:04] VITALS: BP 153/74
[2019-12-28] MEDS: CYCLOBENZAPRINE 10MG TABLET PO SCH ×2 (08:48→22:54)
[2019-12-28] MEDS: busPIRone 10 MG TAB PO SCH ×3 (08:48→22:49)
[2019-12-28] MEDS: OMEPRAZOLE 20 MG CAP PO SCH ×2 (08:49→22:53)
[2019-12-28] MEDS: GABAPENTIN 300 MG CAP PO SCH ×3 (08:49→22:50)
[2019-12-28] MEDS: ACETAMINOPHEN TAB 650MG DOSE (2X325MG) PO PRN ×2 (08:49→22:50)
[2019-12-28] MEDS: ASCORBIC ACID 500 MG TAB PO SCH (08:49)
[2019-12-28] MEDS: DULoxetine 30 MG CAP (CYMBALTA) PO SCH ×2 (08:49→11:42)
--- NOTE | 2019-12-28 09:43 | MHHPE ---
DATE OF ADMISSION: 12/26/2019 DATE OF EVALUATION: 12/27/2019 HISTORY OF PRESENT ILLNESS: This patient was seen via tele psychiatry due to the current Coronavirus crisis. This is a 34-year-old man who was admitted because he presented to the hospital complaining, "I was having suicidal thoughts and I was seeing things and I was feeling that everybody would be better off without me". He states that he had been doing okay until about a week ago. He started to have these visual hallucinations. He says that he looked through the corners of his eyes and he might see people doing odd things like walking through carnes or seeing animals. He denies any auditory hallucinations. He states he was having suicidal thoughts with no particular plans, but just basically passive wishes. He also was having thoughts of hurting other people. He said that if he would walk down the street and saw some stranger that he would think of different ways that he could hurt this person, although he says he has never been aggressive and he has never hurt anybody before. The patient attends the [facility]. He is prescribed multiple medications to include Cymbalta 60 mg every a.m. and 30 mg at noon, BuSpar 10 mg three times a day, and Seroquel 400 mg at bedtime. He takes Neurontin 600 mg three times a day. He says that he takes that not only as a mood stabilizer, but he also takes it for his chronic pain. The patient states that he is diagnosed with schizoaffective disorder and bipolar disorder so I am assuming he has schizoaffective disorder bipolar type and also anxiety. It sounds like he has social anxiety. He says he has panic-like episodes with palpitations, feelings of "cold sweats", shortness of breath, and he says as a result he does not like to leave his home much. He says that these episodes started around four years ago. The patient does state that he has been feeling depressed, feeling hopeless and helpless, having feelings of worthlessness and having no ambition. The Cymbalta was last increased about a month ago to 90 mg, he thought it helped his depression at first, but not at this point. The patient does say that he has been stressed out lately because he found out that he was denied by disability. He states that he is not supposed to raise anything above 10 pounds according to his doctor due to his back problems. I did not elicit any hypomanic or manic like symptoms, post traumatic stress disorder or OCD symptoms in this patient. PAST PSYCHIATRIC HISTORY: As I said, he [facility] to [facility] and takes a number of medications noted above. He was admitted to [facility] two years ago. At the time, he had a similar presentation, but he was also having some visual hallucinations like now, but some auditory hallucinations telling him that he should kill himself. He says there is no history of actual suicidal attempts. When he was 8 or 9, he tried to strangle himself with a T-shirt and he was admitted to [facility] at the time. FAMILY HISTORY: He says there is no suicides in the family. He says he has an aunt that is a "little slow", but he does not know much about what her problem is. MEDICAL HISTORY: The patient said he fell out of his crib when he was a baby and a piece of plastic from one of his brother's toys penetrated his head and was removed. He is not aware that there was any ill effects after that, but he did say that he had seizures as a child, but he does not have them as an adult. He also has chronic back pain and he says that he gets treated with injections via the pain clinic every few months. ABUSE HISTORY: He denied any physical or sexual abuse. SUBSTANCE ABUSE: Positive for pot, but he says that he had used some the night before he got admitted, thinking it might help him, but if anything it made him more anxious and he said the time before that it had been 3 months since he had used cannabis. He denies any other drugs or alcohol. REVIEW OF SYSTEMS: Vital Signs: The patient's blood pressure was 124/77, pulse 91, respirations 16. Appearance: He did appear to be stated age. Neuromuscular System: The patient's gait is normal. There are no involuntary movements noted. All other systems were reviewed and found to be negative except for his chronic back pain. MENTAL STATUS EXAMINATION: This patient is alert and oriented times three. He is pleasant and cooperative, verbally spontaneous. His eye contact is good. There is no formal thought disorder noted. He says his mood is depressed. He has passive wishes, though he is denying active suicidal thoughts. He says he has homicidal thoughts towards strangers that he meets in the street, though he denies that he would ever act on them. Concentration is good. Memory intact. Insight and judgment poor. DIAGNOSES: Schizoaffective disorder, bipolar type. Social anxiety. Cannabis use disorder. TREATMENT PLAN: At this point, the patient is feeling very depressed. He is having passive suicidal thoughts and some homicidal thoughts that he says he will not act on. I am going to continue all of his medications, but I will further increase the Cymbalta from 90 mg a day to 60 mg twice a day. I will increase the Seroquel to 450 mg at bedtime. We will involve him in individual, group and milieu therapy and plan to discharge him with appropriate followup when stable.
[2019-12-28] MEDS: MELOXICAM (MOBIC) 7.5 MG TAB PO SCH (11:42)
[2019-12-28 15:48] VITALS: BP 162/77
[2019-12-28] MEDS: QUEtiapine FUMARATE 50MG TAB PO SCH (22:49)
[2019-12-28] MEDS: QUEtiapine FUMARATE 200 MG TAB PO SCH (22:50)
[2019-12-28] MEDS: traZODone 50 MG TAB PO PRN (22:50)
[2019-12-29 06:30] VITALS: BP 140/70
[2019-12-29] MEDS: ACETAMINOPHEN TAB 650MG DOSE (2X325MG) PO PRN ×2 (08:32→22:23)
[2019-12-29] MEDS: busPIRone 10 MG TAB PO SCH ×3 (08:32→22:22)
[2019-12-29] MEDS: ASCORBIC ACID 500 MG TAB PO SCH (08:32)
[2019-12-29] MEDS: OMEPRAZOLE 20 MG CAP PO SCH ×2 (08:32→22:22)
[2019-12-29] MEDS: CYCLOBENZAPRINE 10MG TABLET PO SCH ×2 (08:32→22:22)
[2019-12-29] MEDS: DULoxetine 30 MG CAP (CYMBALTA) PO SCH ×2 (08:33→12:08)
[2019-12-29] MEDS: GABAPENTIN 300 MG CAP PO SCH ×3 (08:33→22:22)
--- NOTE | 2019-12-29 11:09 | MHIPN ---
DATE OF SERVICE: 12/28/2019 This patient is seen via telepsychiatry due to the current coronavirus crisis. Today, the patient states "I'm not too bad so far." Says he slept well. He denied suicidal thoughts or homicidal thoughts. He said that he is still having the visual hallucinations. He said that he saw someone today, and he saw them disappear through the wall. I am not convinced that these are actual hallucinations in this patient, however. MENTAL STATUS EXAMINATION: This patient is alert and oriented times three. Eye contact fair. There is no formal thought disorder noted. He is verbally spontaneous. His mood is "not so bad." His affect is appropriate to mood. He is not suicidal or homicidal today. Again, he is describing some visual hallucinations, but I do not feel that these are actual hallucinations. The patient denies suicidal or homicidal ideations. Concentration fair. Insight and judgment fair. DIAGNOSES: 1. Schizoaffective disorder. 2. Social anxiety. 3. Cannabis use disorder. TREATMENT PLAN: At this point, we will continue to monitor the patient for continued elevation and stabilization in his mood and continued resolution of suicidal and homicidal ideation. PJ
[2019-12-29] MEDS: MELOXICAM (MOBIC) 7.5 MG TAB PO SCH (12:08)
[2019-12-29 16:33] VITALS: BP 132/75
--- NOTE | 2019-12-29 21:00 | MHIPN ---
DATE: 12/29/2019 Patient is seen by telepsychiatry due to the current coronavirus crisis. The patient today states that he has had a better day today. He says that he slept good again. He said he has had no visual hallucinations. He denies suicidal or homicidal ideations today. MENTAL STATUS EXAM: The patient is alert and oriented times three. Eye contact is fairly good. He is verbally spontaneous. There is no formal thought disorder. Mood is "better." Affect is full range and appropriate. He is not voicing any hallucinations today. Denying suicidal or homicidal ideations. Concentration is fair. Memory intact. Insight and judgment is fair. DIAGNOSES: Schizoaffective disorder, bipolar type. TREATMENT PLAN: At this point, we will continue to monitor the patient for continued elevation and stabilization of his mood, resolution of suicidal and homicidal ideations, The patient reported visual hallucinations, and I am not convinced that these are actual hallucinations; these may just be perception for the patient. The patient so far is tolerating the increase in his Cymbalta and Seroquel. PJ
[2019-12-29] MEDS: QUEtiapine FUMARATE 200 MG TAB PO SCH (22:21)
[2019-12-29] MEDS: QUEtiapine FUMARATE 50MG TAB PO SCH (22:21)
[2019-12-29] MEDS: traZODone 50 MG TAB PO PRN (22:22)
[2019-12-30 06:28] VITALS: BP 127/72
[2019-12-30] MEDS: DULoxetine 30 MG CAP (CYMBALTA) PO SCH ×2 (08:14→12:17)
[2019-12-30] MEDS: OMEPRAZOLE 20 MG CAP PO SCH ×2 (08:14→21:50)
[2019-12-30] MEDS: GABAPENTIN 300 MG CAP PO SCH ×3 (08:14→21:51)
[2019-12-30] MEDS: CYCLOBENZAPRINE 10MG TABLET PO SCH ×2 (08:14→21:50)
[2019-12-30] MEDS: busPIRone 10 MG TAB PO SCH ×3 (08:15→21:50)
[2019-12-30] MEDS: ASCORBIC ACID 500 MG TAB PO SCH (08:15)
[2019-12-30] MEDS: MELOXICAM (MOBIC) 7.5 MG TAB PO SCH (12:17)
[2019-12-30 16:24] VITALS: BP 142/90
[2019-12-30] MEDS: ACETAMINOPHEN TAB 650MG DOSE (2X325MG) PO PRN (21:50)
[2019-12-30] MEDS: QUEtiapine FUMARATE 50MG TAB PO SCH (21:50)
[2019-12-30] MEDS: traZODone 50 MG TAB PO PRN (21:51)
[2019-12-30] MEDS: QUEtiapine FUMARATE 200 MG TAB PO SCH (21:51)
[2019-12-30 21:53] VITALS: BP 132/80
[2019-12-31 06:21] VITALS: BP 145/85
[2019-12-31] MEDS: busPIRone 10 MG TAB PO SCH ×2 (08:11→15:28)
[2019-12-31] MEDS: ASCORBIC ACID 500 MG TAB PO SCH (08:11)
[2019-12-31] MEDS: OMEPRAZOLE 20 MG CAP PO SCH (08:11)
[2019-12-31] MEDS: CYCLOBENZAPRINE 10MG TABLET PO SCH (08:11)
[2019-12-31] MEDS: GABAPENTIN 300 MG CAP PO SCH ×2 (08:11→15:28)
[2019-12-31] MEDS: DULoxetine 30 MG CAP (CYMBALTA) PO SCH ×2 (08:11→11:50)
[2019-12-31] MEDS: MELOXICAM (MOBIC) 7.5 MG TAB PO SCH (11:50)
[2019-12-31] MEDS ORDERED: TRAZ-252 PO (14:39)
[2019-12-31] MEDS ORDERED: CYMB1CAP5 PO (14:39)
[2019-12-31] MEDS ORDERED: QUET50TA3 PO (14:39)
--- NOTE | 2019-12-31 15:11 | MHIPN ---
DATE OF SERVICE: 12/30/2019 The patient is seen via telepsychiatry due to the current Coronavirus crisis. Today, he tells me that he is feeling "great." Says he slept well. He is not having any hallucinations and no suicidal or homicidal ideations. MENTAL STATUS EXAMINATION: He is alert and oriented times three. Eye contact is good. He is verbally spontaneous. There is no formal thought disorder noted. Mood is "great." Affect is full range and appropriate. He is not psychotic, suicidal, or homicidal. Concentration and memory poor. DIAGNOSES: Schizoaffective disorder, bipolar type. Social anxiety. Cannabis use disorder. TREATMENT PLAN: At this point, we will continue to monitor the patient for continued elevation and stabilization of his mood, continue resolution of suicidal and homicidal ideations. The patient should have a meeting via phone conference with his to see if she has any concerns and if not, we should be able to begin discharge for the patient pretty soon.
[2019-12-31 16:22] VITALS: BP 128/83
--- NOTE | 2020-01-01 10:28 | MHCR ---
DATE OF ADMISSIONS:12/26/2019 DATE OF DISCHARGE: 12/31/2019 This patient was seen via telepsychiatry due to the current coronavirus crisis. HISTORY: This 34-year-old man was admitted due to complaints of suicidal ideations, homicidal thoughts where he was seen a stranger in the street and have thoughts about when to kill this person, although he denied having any intent. He also complained of feeling depressed and that he was having visual hallucinations where he would see people walking into carnes and would see animals. Refer to the admission note and other progress notes for further history on this patient. Medical done by Dr. Katherin Blair and the patient has a history of obesity, hypertension, back pain, sinus tachycardia, is prediabetic, but he did not have any acute medical problems. He also has gastroesophageal reflux disease (GERD). The laboratory studies were all within normal limits. He had a complete blood count (CBC) and basic metabolic panel (BMP). MENTAL STATUS AT THE TIME OF DISCHARGE: The patient was alert and oriented times 3, was pleasant, cooperative, very spontaneous. There was no formal thought disorder noted. He said his mood was good. His affect was full range and appropriate. He was not psychotic, suicidal or homicidal. Concentration and memory is good. Insight and judgment good. DIAGNOSIS: 1. Schizoaffective disorder, bipolar type. 2. Social anxiety. COURSE DURING HOSPITALIZATION: The patient was complaining of depression, suicidal ideation, homicidal ideations and visual hallucinations. I did advise the patient that I did not think that the visual hallucinations that he was describing were actual hallucinations; however, he was depressed. I increased his Seroquel to 450 mg at bedtime (q.h.s.) from 400 mg at bedtime (q.h.s.). I also increased his Cymbalta from 90 mg a day to 60 mg twice a day and the patient gradually improved in suicidal and homicidal thoughts resolved and he did not report any more visual hallucinations and his mood elevated and stabilized and he was ready for discharge. The cyber ops planner did have a phone conference with the patient and to discuss discharge to make sure that the did not have any particular concerns. Outpatient followup for counseling and psychiatric followup was arranged by the cyber ops planner. PJ
[2020-01-13] MEDS ORDERED: TIZA2CAP PO (19:32)
[2020-04-21] MEDS ORDERED: DULO1CAP6 PO (23:14)
[2020-06-18] MEDS ORDERED: PROM25TA12 (13:39)
[2020-06-18] MEDS ORDERED: TRAM50TA2 (13:39)
== END 2019-12-31 17:30 | disposition home or self-care (01) | DRG 750 ==
LOC: M ED 15:20 → M ED INP 20:22 → M PSY 22:50
PROVIDERS: ADMIT Psychiatry & Neurology Psychiatry; ATTEND Psychiatry & Neurology Addiction Medicine
DX: F25.0 Schizoaffective disorder, bipolar type (principal); R45.850 Homicidal ideations; R45.851 Suicidal ideations; F40.10 Social phobia, unspecified; F12.10 Cannabis abuse, uncomplicated; R73.03 Prediabetes; M51.26 Other intervertebral disc displacement, lumbar region; R00.0 Tachycardia, unspecified; E66.9 Obesity, unspecified; I10 Essential (primary) hypertension; K21.9 Gastro-esophageal reflux disease without esophagitis; Z79.1 Long term (current) use of non-steroidal anti-inflammatories (NSAID); Z79.899 Other long term (current) drug therapy; Z68.35 Body mass index [BMI] 35.0-35.9, adult; Z87.891 Personal history of nicotine dependence

== ENCOUNTER 2020-01-24 11:15 | Emergency (ER) | payer MEDICAID, OTHER ==
[~2020-01-24] VITALS: Ht 172.7 cm; Wt 106.0 kg
[~2020-01-24 11:15] MED LIST changes: -CELE10TA PO; -CELE20TA; -CELE20TA PO; -CELE40TA; -CITA20TA6 PO; -CITA40TA6 PO; +CYMB1CAP5 PO; -DIPH25CA32 PO; -DULO1CAP4 PO; -GABA-845 PO; -HALO5TA PO; -HYDR-3715 PO; -HYDR-3716 PO; -HYDR-4514 PO; -HYDR1TAB33 PO; -HYDR50TA30; -HYDR50TA70 PO; -IBUP200T45 PO; -IBUPOTC PO; -INVE234I IM; -LAMI25TA PO; -LAMO25TA4 PO; -LISI10TA22 PO; +LISI10TA4 PO; -LISI20TA33 PO; -MIRT-62 PO; -NICO14PA TD; -NICO21PAT TD; -OMEP1CAP73; -OMEP1CAP73 PO; -PRED20TA PO; -PROV108A INH; -QUET200T2 PO; +QUET5TAB PO; -SERO400T; -TEST200I14 IM; -TRAZ-257 PO; -TRAZ1TAB10 PO; -TRAZ1TAB6 PO; -VICO7.5T12 PO; +VITA500C24 PO
[2020-01-24 11:53] LABS: BASO # 0.1 10^3/uL (0.0-0.2); BASO % 0.5 % (0.0-1.0); EOS # 0.3 10^3/uL (0.0-0.5); EOS % 2.3 % (0.0-3.0); HEMATOCRIT 47.4 % (42.0-52.0); HEMOGLOBIN 16.2 g/dl (13.5-17.5); LYMPH # 2.9 10^3/uL (1.5-5.0); LYMPH % 24.8 % (24.0-44.0); MEAN CORPUSCULAR HEMOGLOBIN 30.1 pg (27.0-33.0); MEAN CORPUSCULAR HGB CONC 34.2 g/dl (32.0-36.5); MEAN CORPUSCULAR VOLUME 87.9 fl (80.0-96.0); MONO # 0.8 10^3/uL (0.0-0.8); MONO % 6.9 % (0.0-5.0); NEUTROPHILS # 7.5 10^3/uL (1.5-8.5); NEUTROPHILS % 64.7 % (36.0-66.0); PLATELET COUNT, AUTOMATED 296 10^3/uL (150-450); RED BLOOD COUNT 5.39 10^6/uL (4.30-6.10); WHITE BLOOD COUNT 11.5 10^3/uL (4.0-10.0)
[2020-01-24 12:13] LABS: ALBUMIN 4.6 GM/DL (3.2-5.2); ALT/SGPT 66 U/L (12-78); BILIRUBIN,TOTAL 0.4 MG/DL (0.2-1.0); BLOOD UREA NITROGEN 13 MG/DL (7-18); CALCIUM LEVEL 10.1 MG/DL (8.5-10.1); CARBON DIOXIDE LEVEL 26 MEQ/L (21-32); CHLORIDE LEVEL 106 MEQ/L (98-107); CREATININE FOR GFR 1.13 MG/DL (0.70-1.30); GLOMERULAR FILTRATION RATE > 60.0 (>60); GLUCOSE, FASTING 100 MG/DL (70-100); POTASSIUM SERUM 4.4 MEQ/L (3.5-5.1); SODIUM LEVEL 139 MEQ/L (136-145); TOTAL PROTEIN 8.2 GM/DL (6.4-8.2)
[2020-01-24] MEDS ORDERED: MECLIZINE 25 MG TABLET PO ONE (12:30)
[2020-01-24] MEDS ORDERED: NS 1,000 ML IV ONE (12:30)
[2020-01-24] MEDS ORDERED: MECL1TAB31 PO (13:44)
[2020-01-24 14:02] VITALS: BP 130/82
--- NOTE | 2020-01-24 15:24 | REP ---
REASON: Dizziness. COMPARISON: 12/26/2019. That examination showed no acute disease. Today's examination is unchanged from the prior examination. Left frontal lobe encephalomalacia is status quo. Prior day hole, status quo. No change in the ventricles or sulci. No acute extra-axial fluid collections or shifting of the midline structures. No change in the posterior fossa. No evidence of an acute intracranial hemorrhagic or nonhemorrhagic event. IMPRESSION: No significant change from the prior exam. No evidence of acute disease. Electronically Signed by Eber Rodriguez DO 01/24/2020 04:55 P
--- NOTE | 2020-01-25 08:31 | ECGEPIP ---
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
== END 2020-01-24 14:04 | disposition home or self-care (01) ==
LOC: M ED 11:15
DX: H81.10 Benign paroxysmal vertigo, unspecified ear (principal); Z79.899 Other long term (current) drug therapy

== ENCOUNTER 2020-01-27 12:58 | Emergency (ER) | payer OTHER ==
[~2020-01-27] VITALS: Ht 172.7 cm; Wt 104.2 kg
[~2020-01-27 12:58] MED LIST changes: +MECL1TAB31 PO
[2020-01-27] MEDS ORDERED: TIZA4TAB4 PO (13:24)
[2020-01-27] MEDS ORDERED: MECLIZINE 25 MG TABLET PO ONE (14:45)
[2020-01-27 15:24] LABS: BLOOD UREA NITROGEN 14 MG/DL (7-18); CALCIUM LEVEL 9.9 MG/DL (8.5-10.1); CARBON DIOXIDE LEVEL 27 MEQ/L (21-32); CHLORIDE LEVEL 105 MEQ/L (98-107); CREATININE FOR GFR 0.98 MG/DL (0.70-1.30); GLOMERULAR FILTRATION RATE > 60.0 (>60); GLUCOSE, FASTING 102 MG/DL (70-100); POTASSIUM SERUM 4.9 MEQ/L (3.5-5.1); SODIUM LEVEL 136 MEQ/L (136-145)
[2020-01-27 15:59] VITALS: BP 130/86
== END 2020-01-27 16:01 | disposition home or self-care (01) ==
LOC: M ED 13:49
DX: R42 Dizziness and giddiness (principal); Z79.899 Other long term (current) drug therapy

== ENCOUNTER 2020-02-06 10:05 | Emergency (ER) | payer OTHER ==
[2020-02-06] MEDS ORDERED: ISOVUE-370 76% 100ML VIAL As Ordered ONE (13:04)
[2020-03-09 11:25] LABS: BASO % 0.5 % (0.0-1.0); EOS # 0.3 10^3/uL (0.0-0.5); EOS % 3.5 % (0.0-3.0); HEMATOCRIT 44.8 % (42.0-52.0); HEMOGLOBIN 15.1 g/dl (13.5-17.5); LYMPH # 2.4 10^3/uL (1.5-5.0); LYMPH % 32.5 % (24.0-44.0); MEAN CORPUSCULAR HEMOGLOBIN 30.1 pg (27.0-33.0); MEAN CORPUSCULAR HGB CONC 33.7 g/dl (32.0-36.5); MEAN CORPUSCULAR VOLUME 89.4 fl (80.0-96.0); MONO # 0.7 10^3/uL (0.0-0.8); PLATELET COUNT, AUTOMATED 253 10^3/uL (150-450); RED BLOOD COUNT 5.01 10^6/uL (4.30-6.10); WHITE BLOOD COUNT 7.4 10^3/uL (4.0-10.0)
[2020-03-22 12:13] LABS: ACETAMINOPHEN LEVEL < 2.0 UG/ML (10.0-30.0); ALBUMIN 4.1 GM/DL (3.2-5.2); ALT/SGPT 75 U/L (12-78); AMPHETAMINES LEVEL URINE NEGATIVE (NEGATIVE); BARBITURATES URINE NEGATIVE (NEGATIVE); BENZODIAZEPINES URINE NEGATIVE (NEGATIVE); BILIRUBIN,DIRECT 0.1 MG/DL (0.0-0.2); BILIRUBIN,TOTAL 0.3 MG/DL (0.2-1.0); BLOOD UREA NITROGEN 16 MG/DL (7-18); CALCIUM LEVEL 8.8 MG/DL (8.5-10.1); CANNABINOIDS URINE POSITIVE (NEGATIVE); CARBON DIOXIDE LEVEL 24 MEQ/L (21-32); CHLORIDE LEVEL 107 MEQ/L (98-107); CK-MB VALUE MASS < 1.0 NG/ML (<3.6); COCAINE METABOLITE URINE NEGATIVE (NEGATIVE); CPK CREATINE PHOSPHOKINASE 125 U/L (39-308); CREATININE FOR GFR 1.01 MG/DL (0.70-1.30); ETHYL ALCOHOL (ETHANOL) < 0.003 % (0.000-0.010); GLOMERULAR FILTRATION RATE > 60.0 (>60); GLUCOSE, FASTING 102 MG/DL (70-100); METHADONE URINE NEGATIVE (NEGATIVE); OPIATES URINE NEGATIVE (NEGATIVE); PHENCYCLIDINE URINE NEGATIVE (NEGATIVE); SALICYLATE LEVEL < 1.7 MG/DL (5.0-30.0); SODIUM LEVEL 140 MEQ/L (136-145); THYROID STIMULATING HORMONE 0.594 uIU/ML (0.358-3.740); TROPONIN I < 0.02 NG/ML (< 0.10)
--- NOTE | 2020-03-25 16:05 | ECGEPIP ---
SINUS TACHYCARDIA SEE SCANNED DOWNTIME REPORT MTDD
--- NOTE | 2020-03-29 09:02 | REP ---
CT OF THE CHEST WITH CONTRAST: HISTORY: Acute shortness of breath. TECHNIQUE: Axial contrast-enhanced images from the thoracic inlet to the upper abdomen with multiplanar reformations using pulmonary embolus technique. 75 cc Isovue 370 intravenous contrast material was administered without complication. FINDINGS: Satisfactory enhancement of the pulmonary vasculature is achieved and no filling defects are identified to suggest pulmonary embolus. The thoracic aorta is normal. The heart and pericardium are normal. No adenopathy. The tracheobronchial tree is patent. The lung salgado demonstrate minimal lingula, medial right upper lobe and right basilar atelectasis. No focal consolidation, effusion or pneumothorax. Musculoskeletal structures are intact. Limited upper abdomen demonstrates normal bilateral adrenal glands. IMPRESSION: 1. No evidence for pulmonary embolus. 2. Minimal scattered atelectasis. MTDD
== END 2020-02-06 14:15 | disposition home or self-care (01) ==
LOC: M ED 10:05
DX: R00.2 Palpitations (principal); R06.2 Wheezing; I10 Essential (primary) hypertension; F33.9 Major depressive disorder, recurrent, unspecified; F41.9 Anxiety disorder, unspecified; M51.9 Unspecified thoracic, thoracolumbar and lumbosacral intervertebral disc disorder; Z79.899 Other long term (current) drug therapy; F12.20 Cannabis dependence, uncomplicated; Z87.891 Personal history of nicotine dependence
CPT/HCPCS: 36415; 71046; 71275; 80048; 80076; 80307; 82550; 82553; 84439; 84443; 85025; 93005; 99284; G0480; Q9967

== ENCOUNTER → 2020-02-08 | Emergency (ER) | payer OTHER ==
[~2020-02-08] MED LIST changes: +DULO1CAP6; +GI COCKTAIL 50ML BTL(HYOSCYAMINE/MAALOX/LIDOCAINE VISCOUS)(1:3:1) As Ordered ONE; +GI COCKTAIL 50ML BTL(HYOSCYAMINE/MAALOX/LIDOCAINE VISCOUS)(1:3:1) ONE; +MORPHINE 2 MG/ML 1ML VIAL (J2270) As Ordered ONE; +MORPHINE 2 MG/ML 1ML VIAL (J2270) ONE; +PROMETHAZINE INJ 25 MG/ML VIAL (J2550) As Ordered ONE; +PROMETHAZINE INJ 25 MG/ML VIAL (J2550) ONE
[2020-03-25 17:02] LABS: HEMATOCRIT 45.4 % (42.0-52.0); HEMOGLOBIN 15.8 g/dl (13.5-17.5); MEAN CORPUSCULAR HEMOGLOBIN 30.7 pg (27.0-33.0); MEAN CORPUSCULAR HGB CONC 34.8 g/dl (32.0-36.5); MEAN CORPUSCULAR VOLUME 88.2 fl (80.0-96.0); PLATELET COUNT, AUTOMATED 305 10^3/uL (150-450); RED BLOOD COUNT 5.15 10^6/uL (4.30-6.10); WHITE BLOOD COUNT 13.2 10^3/uL (4.0-10.0)
[2020-04-21 15:54] LABS: BLOOD UREA NITROGEN 14 MG/DL (7-18); CALCIUM LEVEL 9.3 MG/DL (8.5-10.1); CARBON DIOXIDE LEVEL 27 MEQ/L (21-32); CHLORIDE LEVEL 105 MEQ/L (98-107); CREATININE FOR GFR 1.07 MG/DL (0.70-1.30); GLOMERULAR FILTRATION RATE > 60.0 (>60); GLUCOSE, FASTING 98 MG/DL (70-100); POTASSIUM SERUM 4.4 MEQ/L (3.5-5.1); SODIUM LEVEL 138 MEQ/L (136-145)
== END | disposition home or self-care (01) ==
LOC: M ED 23:09
DX: R51 Headache (principal); K29.70 Gastritis, unspecified, without bleeding; I10 Essential (primary) hypertension; Z79.899 Other long term (current) drug therapy; F17.210 Nicotine dependence, cigarettes, uncomplicated
CPT/HCPCS: 70450; 80048; 85027; 96374; 96375; 99283; J2270

== ENCOUNTER 2020-04-15 00:33 | Emergency (ER) | payer OTHER ==
[~2020-04-15] VITALS: Ht 172.7 cm; Wt 107.3 kg
[~2020-04-15 00:33] MED LIST changes: -DULO1CAP6; -GI COCKTAIL 50ML BTL(HYOSCYAMINE/MAALOX/LIDOCAINE VISCOUS)(1:3:1) As Ordered ONE; -GI COCKTAIL 50ML BTL(HYOSCYAMINE/MAALOX/LIDOCAINE VISCOUS)(1:3:1) ONE; -MORPHINE 2 MG/ML 1ML VIAL (J2270) As Ordered ONE; -MORPHINE 2 MG/ML 1ML VIAL (J2270) ONE; -PROMETHAZINE INJ 25 MG/ML VIAL (J2550) As Ordered ONE; -PROMETHAZINE INJ 25 MG/ML VIAL (J2550) ONE
[2020-04-15] MEDS ORDERED: ALPRAZolam 0.5 MG TAB PO ONE (00:45)
[2020-04-15 01:45] VITALS: BP 130/71
--- NOTE | 2020-04-16 07:12 | ECGEPIP ---
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
== END 2020-04-15 02:01 | disposition home or self-care (01) ==
LOC: M ED 00:33
DX: R00.0 Tachycardia, unspecified (principal); T43.595A Adverse effect of other antipsychotics and neuroleptics, initial encounter; F41.1 Generalized anxiety disorder; F25.9 Schizoaffective disorder, unspecified; F40.00 Agoraphobia, unspecified; Z79.899 Other long term (current) drug therapy

== ENCOUNTER 2020-04-21 23:02 | Emergency (ER) | payer OTHER ==
[~2020-04-21] VITALS: Ht 172.7 cm; Wt 110.2 kg
[2020-04-21] MEDS ORDERED: DULO1CAP6 (23:14)
[2020-04-22 02:02] LABS: BASO # 0.1 10^3/uL (0.0-0.2); BASO % 0.6 % (0.0-1.0); EOS # 0.3 10^3/uL (0.0-0.5); EOS % 2.4 % (0.0-3.0); HEMATOCRIT 45.1 % (42.0-52.0); HEMOGLOBIN 15.2 g/dl (13.5-17.5); LYMPH % 36.3 % (24.0-44.0); MEAN CORPUSCULAR HEMOGLOBIN 29.6 pg (27.0-33.0); MEAN CORPUSCULAR HGB CONC 33.7 g/dl (32.0-36.5); MEAN CORPUSCULAR VOLUME 87.9 fl (80.0-96.0); MONO % 9.3 % (0.0-5.0); NEUTROPHILS # 5.6 10^3/uL (1.5-8.5); NEUTROPHILS % 50.9 % (36.0-66.0); PLATELET COUNT, AUTOMATED 276 10^3/uL (150-450); RED BLOOD COUNT 5.13 10^6/uL (4.30-6.10)
--- NOTE | 2020-04-22 02:16 | REPVR ---
PROCEDURE INFORMATION: Exam: XR Chest, 2 Views Exam date and time: 04/22/20 (1:36am) Age: 34 years old Clinical indication: Abdominal pain TECHNIQUE: Imaging protocol: XR of the chest Views: 2 views COMPARISON: Portable CXR of 11/14/19 FINDINGS: Comparison is made with a portable CXR done on 11/14/19. The lung salgado remain clear. No focal infiltrates. No pleural effusions. Normal heart size. No gross cardiac failure. No pneumothorax. IMPRESSION: No acute chest pathology. The lung salgado remain clear. Electronically signed by: Reshma Packer On 04/22/2020 02:16:18 AM
[2020-04-22 02:34] LABS: ALBUMIN 3.9 GM/DL (3.2-5.2); ALT/SGPT 68 U/L (12-78); BILIRUBIN,DIRECT 0.1 MG/DL (0.0-0.2); BILIRUBIN,TOTAL 0.3 MG/DL (0.2-1.0); BLOOD UREA NITROGEN 12 MG/DL (7-18); CALCIUM LEVEL 9.4 MG/DL (8.5-10.1); CARBON DIOXIDE LEVEL 26 MEQ/L (21-32); CHLORIDE LEVEL 108 MEQ/L (98-107); CK-MB VALUE MASS 3.5 NG/ML (<3.6); CPK CREATINE PHOSPHOKINASE 439 U/L (39-308); CREATININE FOR GFR 0.94 MG/DL (0.70-1.30); GLOMERULAR FILTRATION RATE > 60.0 (>60); GLUCOSE, FASTING 100 MG/DL (70-100); LIPASE 153 U/L (73-393); POTASSIUM SERUM 4.5 MEQ/L (3.5-5.1); SODIUM LEVEL 140 MEQ/L (136-145); TOTAL PROTEIN 7.3 GM/DL (6.4-8.2); TROPONIN I < 0.02 NG/ML (< 0.10)
[2020-04-22 05:29] LABS: CK-MB VALUE MASS 2.9 NG/ML (<3.6); CPK CREATINE PHOSPHOKINASE 400 U/L (39-308); MB/CK RELATIVE INDEX 0.72 (< OR =4); TROPONIN I < 0.02 NG/ML (< 0.10)
[2020-04-22 06:15] VITALS: BP 143/80
--- NOTE | 2020-04-22 19:21 | ECGEPIP ---
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
--- NOTE | 2020-04-22 19:24 | ECGEPIP ---
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
== END 2020-04-22 06:27 | disposition home or self-care (01) ==
LOC: M ED 23:02
DX: F41.1 Generalized anxiety disorder (principal); R07.9 Chest pain, unspecified; R00.0 Tachycardia, unspecified; I10 Essential (primary) hypertension; K21.9 Gastro-esophageal reflux disease without esophagitis; F25.9 Schizoaffective disorder, unspecified; F32.9 Major depressive disorder, single episode, unspecified

== ENCOUNTER 2020-05-22 10:43 | Emergency (ER) | payer OTHER ==
[~2020-05-22] VITALS: Ht 170.2 cm; Wt 114.2 kg
[~2020-05-22 10:43] MED LIST changes: +DULO1CAP6
--- NOTE | 2020-05-22 11:36 | REP ---
INDICATION: swollen tender bump prox mcp pinky. COMPARISON: None. FINDINGS: No acute fracture or destructive osseous lesion. IMPRESSION: Negative exam <Electronically signed by Eber Rodriguez > 05/22/20 [id number]
[2020-05-22 12:02] VITALS: BP 134/83
== END 2020-05-22 12:03 | disposition home or self-care (01) ==
LOC: M ED 10:43
DX: M79.644 Pain in right finger(s) (principal); I10 Essential (primary) hypertension; F12.10 Cannabis abuse, uncomplicated; Z90.49 Acquired absence of other specified parts of digestive tract; Z83.3 Family history of diabetes mellitus; Z79.899 Other long term (current) drug therapy

== ENCOUNTER 2020-06-02 00:48 | Emergency (ER) | payer OTHER ==
[~2020-06-02] VITALS: Ht 167.6 cm; Wt 109.0 kg
[2020-06-02] MEDS ORDERED: ALPRAZolam 0.5 MG TAB PO ONE (01:30)
[2020-06-02] MEDS ORDERED: NS 1,000 ML IV ONE (01:30)
[2020-06-02 01:55] LABS: BASO # 0.1 10^3/uL (0.0-0.2); BASO % 0.7 % (0.0-1.0); EOS # 0.3 10^3/uL (0.0-0.5); EOS % 2.4 % (0.0-3.0); HEMATOCRIT 44.9 % (42.0-52.0); HEMOGLOBIN 15.1 g/dl (13.5-17.5); LYMPH # 3.9 10^3/uL (1.5-5.0); LYMPH % 31.9 % (24.0-44.0); MEAN CORPUSCULAR HGB CONC 33.6 g/dl (32.0-36.5); MEAN CORPUSCULAR VOLUME 86.3 fl (80.0-96.0); MONO # 1.1 10^3/uL (0.0-0.8); MONO % 8.7 % (0.0-5.0); NEUTROPHILS # 6.7 10^3/uL (1.5-8.5); NEUTROPHILS % 55.7 % (36.0-66.0); PLATELET COUNT, AUTOMATED 268 10^3/uL (150-450); WHITE BLOOD COUNT 12.1 10^3/uL (4.0-10.0)
--- NOTE | 2020-06-02 02:12 | REPVR ---
PROCEDURE INFORMATION: Exam: XR Chest, 1 View Exam date and time: 06/02/2020 1:47 AM Age: 34 years old Clinical indication: Chest pain TECHNIQUE: Imaging protocol: XR of the chest Views: 1 view. COMPARISON: CR Chest, 2 view PA, Lat 04/22/2020 1:35 AM FINDINGS: Lungs: Unremarkable. No consolidation. No pulmonary edema. Pleural space: Unremarkable. No pleural effusion or pneumothorax is identified. Heart/Mediastinum: Unremarkable. No cardiomegaly. Bones/joints: There is a chronic healed fracture deformity involving the distal portion of the left clavicle. IMPRESSION: No acute findings. Electronically signed by: Elliot Guajardo On 06/02/2020 02:12:16 AM
[2020-06-02 02:25] LABS: BLOOD UREA NITROGEN 16 MG/DL (7-18); CALCIUM LEVEL 9.3 MG/DL (8.5-10.1); CARBON DIOXIDE LEVEL 24 MEQ/L (21-32); CHLORIDE LEVEL 108 MEQ/L (98-107); CREATININE FOR GFR 1.05 MG/DL (0.70-1.30); GLOMERULAR FILTRATION RATE > 60.0 (>60); GLUCOSE, FASTING 113 MG/DL (70-100); POTASSIUM SERUM 3.8 MEQ/L (3.5-5.1); SODIUM LEVEL 141 MEQ/L (136-145)
[2020-06-02 05:01] LABS: APPEARANCE, URINE CLEAR (CLEAR); BACTERIA, URINE AUTO NEGATIVE (NEGATIVE); BILIRUBIN, URINE AUTO NEGATIVE (NEGATIVE); BLOOD, URINE BLOOD NEGATIVE (NEGATIVE); COLOR, URINE STRAW (YELLOW); GLUCOSE, URINE (UA) AUTO NEGATIVE (NEGATIVE); KETONE, URINE AUTO NEGATIVE (NEGATIVE); LEUKOCYTE ESTERASE, URINE AUTO NEGATIVE (NEGATIVE); NITRITE, URINE AUTO NEGATIVE (NEGATIVE); PROTEIN, URINE AUTO NEGATIVE (NEGATIVE); RBC, URINE AUTO 0 /HPF (0-3); SPECIFIC GRAVITY URINE AUTO 1.003 (1.002-1.035); SQUAMOUS EPITHELIAL CELL UR AU 0 /HPF (0-6); UROBILINOGEN, URINE AUTO 0.2 mg/dL (0.0-2.0); WBC, URINE AUTO 0 /HPF (0-3)
[2020-06-02 05:06] VITALS: BP 127/85
[2020-06-02 05:29] LABS: AMPHETAMINES LEVEL URINE NEGATIVE (NEGATIVE); BARBITURATES URINE NEGATIVE (NEGATIVE); BENZODIAZEPINES URINE NEGATIVE (NEGATIVE); CANNABINOIDS URINE POSITIVE (NEGATIVE); COCAINE METABOLITE URINE NEGATIVE (NEGATIVE); METHADONE URINE NEGATIVE (NEGATIVE); OPIATES URINE NEGATIVE (NEGATIVE); PHENCYCLIDINE URINE NEGATIVE (NEGATIVE)
--- NOTE | 2020-06-08 17:01 | ECGEPIP ---
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
[2020-06-18] MEDS ORDERED: PROM25TA12 (13:39)
[2020-06-18] MEDS ORDERED: TRAM50TA2 (13:39)
== END 2020-06-02 05:11 | disposition home or self-care (01) ==
LOC: M ED 00:48
DX: F41.8 Other specified anxiety disorders (principal); F12.10 Cannabis abuse, uncomplicated; I10 Essential (primary) hypertension; Z79.899 Other long term (current) drug therapy

== ENCOUNTER 2020-06-24 23:05 | Emergency (ER) | payer OTHER ==
[~2020-06-24] VITALS: Ht 170.2 cm; Wt 109.0 kg
[~2020-06-24 23:05] MED LIST changes: +PROM25TA12; +TRAM50TA2
[2020-06-25] MEDS ORDERED: NS 1,000 ML IV ONE (00:15)
[2020-06-25] MEDS ORDERED: ISOVUE-370 76% 100ML VIAL As Ordered ONE (00:39)
[2020-06-25 00:58] LABS: BASO # 0.1 10^3/uL (0.0-0.2); BASO % 0.8 % (0.0-1.0); EOS # 0.4 10^3/uL (0.0-0.5); EOS % 3.5 % (0.0-3.0); HEMATOCRIT 43.2 % (42.0-52.0); HEMOGLOBIN 14.4 g/dl (13.5-17.5); LYMPH # 4.2 10^3/uL (1.5-5.0); LYMPH % 39.9 % (24.0-44.0); MEAN CORPUSCULAR HEMOGLOBIN 28.7 pg (27.0-33.0); MEAN CORPUSCULAR HGB CONC 33.3 g/dl (32.0-36.5); MEAN CORPUSCULAR VOLUME 86.2 fl (80.0-96.0); MONO # 1.1 10^3/uL (0.0-0.8); MONO % 10.2 % (0.0-5.0); NEUTROPHILS # 4.7 10^3/uL (1.5-8.5); NEUTROPHILS % 44.9 % (36.0-66.0); PLATELET COUNT, AUTOMATED 274 10^3/uL (150-450); RED BLOOD COUNT 5.01 10^6/uL (4.30-6.10); WHITE BLOOD COUNT 10.5 10^3/uL (4.0-10.0)
[2020-06-25 01:21] LABS: PARTIAL THROMBOPLASTIN TIME 26.7 SECONDS (24.2-38.5)
[2020-06-25 01:24] LABS: D-DIMER QUANT 381.3 ng/ml (<500)
[2020-06-25 01:25] LABS: INR 0.88; PROTHROMBIN TIME 12.1 SECONDS (12.5-14.3)
[2020-06-25 01:28] LABS: BLOOD UREA NITROGEN 19 MG/DL (7-18); CALCIUM LEVEL 9.5 MG/DL (8.5-10.1); CARBON DIOXIDE LEVEL 27 MEQ/L (21-32); CHLORIDE LEVEL 106 MEQ/L (98-107); CK-MB VALUE MASS 3.2 NG/ML (<3.6); CPK CREATINE PHOSPHOKINASE 305 U/L (39-308); CREATININE FOR GFR 1.02 MG/DL (0.70-1.30); GLOMERULAR FILTRATION RATE > 60.0 (>60); GLUCOSE, FASTING 91 MG/DL (70-100); MB/CK RELATIVE INDEX 1.05 (< OR =4); NT-PRO BNP < 5 PG/ML (<125); POTASSIUM SERUM 3.8 MEQ/L (3.5-5.1); SODIUM LEVEL 139 MEQ/L (136-145); TROPONIN I < 0.02 NG/ML (< 0.10)
--- NOTE | 2020-06-25 02:09 | REPVR ---
PROCEDURE INFORMATION: Exam: CT Angiography Chest with Contrast Exam date and time: 06/25/20 (1:00am) Age: 34 years old Clinical indication: SOB TECHNIQUE: Imaging protocol: Computed tomographic angiography of the chest with intravenous contrast. 3D rendering (Not supervised by radiologist): MIP and/or 3D reconstructed images were created by the technologist. Radiation optimization: All CT scans at this facility use at least one of these dose optimization techniques: automated exposure control; mA and/or kV adjustment per patient size (includes targeted exams where dose is matched to clinical indication); or iterative reconstruction. Contrast material: Iso Contrast volume: 75 ml Contrast route: IV COMPARISON: CTA CHEST of 02/06/20 FINDINGS: Pulmonary arteries: This is a suboptimal bolus study for complete pulmonary embolism evaluation due to inadequate opacification of the pulmonary arteries and some cardiac motion. The CT density of the enhanced main pulmonary artery = 150 HU. The desired level of enhancement is > 200 HU. The central pulmonary arteries are patent. 1st and 2nd order arterial branches also appear patent. It is difficult to confidently evaluate smaller, more peripheral arterial branches. Small peripheral pulmonary emboli cannot be definitively excluded by this examination. Aorta: Unremarkable. No aortic aneurysm. No aortic dissection. Lungs: Unremarkable. No consolidation. No masses. Pleural space: Unremarkable. No pneumothorax. No pleural effusions. Heart: Unremarkable. No cardiomegaly. No pericardial effusion. Lymph nodes: Unremarkable. No enlarged lymph nodes. Bones/joints: Unremarkable. No acute fracture. Soft tissues: Unremarkable. Upper abdomen: Diffuse fatty infiltration of the liver. Moderately contracted gallbladder. IMPRESSION: No acute findings. The bolus study for pulmonary embolism evaluation is suboptimal due to poor pulmonary arterial opacification. This is a limited evaluation for pulmonary embolism. No major nor central pulmonary emboli are appreciated. 1st and 2nd order arterial branches are also patent. More peripheral, smaller arterial branches cannot be evaluated with full confidence. Electronically signed by: Reshma Packer On 06/25/2020 02:09:22 AM
[2020-06-25 03:15] VITALS: BP 146/93
--- NOTE | 2020-06-25 07:34 | ECGEPIP ---
[facility] - ED Test Date: 2020-06-24 Pat Name: LEXII ARAGON Department: Room: - Gender: Male Neighborhood Coordinator: JR TEIXEIRAB: 1985 Requested By: RAJAN FREGOSO Order Number: [id number] Reading MD: David Starks Measurements Intervals [place] Rate: 126 P: 30 OK: 139 QRS: 4 QRSD: 93 T: 32 QT: 311 QTc: 452 Interpretive Statements SINUS TACHYCARDIA Nonspecific ST-T wave abnormalities Similar to tracing done 06-02-20 Electronically Signed on 06-25-2020 7:34:13 EST by David Starks
== END 2020-06-25 03:39 | disposition home or self-care (01) ==
LOC: M ED 23:05
DX: F41.9 Anxiety disorder, unspecified (principal); F31.9 Bipolar disorder, unspecified; F25.9 Schizoaffective disorder, unspecified; Z79.899 Other long term (current) drug therapy
CPT/HCPCS: 71275; 80048; 82550; 82553; 83880; 85025; 85379; 85610; 85730; 93005; 93041; 94760; 96360; 99285; Q9967

== ENCOUNTER 2020-07-19 00:08 | Emergency (ER) | payer OTHER ==
[~2020-07-19] VITALS: Ht 170.2 cm; Wt 113.6 kg
[~2020-07-19 00:08] MED LIST changes: +CELE10TA PO; +CELE20TA; +CELE20TA PO; +CELE40TA; +CITA20TA6 PO; +CITA40TA6 PO; +DIPH25CA32 PO; +DULO1CAP4 PO; +GABA-845 PO; +HALO5TA PO; +HYDR-3715 PO; +HYDR-3716 PO; +HYDR-4514 PO; +HYDR1TAB33 PO; +HYDR50TA30; +HYDR50TA70 PO; +IBUP200T45 PO; +IBUPOTC PO; +INVE234I IM; +LAMI25TA PO; +LAMO25TA4 PO; +LISI-538 PO; +MIRT-62 PO; +NICO14PA TD; +NICO21PAT TD; +OMEP1CAP73; +OMEP1CAP73 PO; +PRED20TA PO; +PROV108A INH; +QUET200T2 PO; +SERO400T; +TEST200I14 IM; +TIZA2CAP PO; +TRAZ-257 PO; +TRAZ1TAB10 PO; +TRAZ1TAB6 PO; +VICO7.5T12 PO
[2020-07-19] MEDS ORDERED: NS 500 ML IV ONE (00:30)
[2020-07-19 00:39] LABS: BASO # 0.1 10^3/uL (0.0-0.2); BASO % 0.7 % (0.0-1.0); EOS # 0.6 10^3/uL (0.0-0.5); EOS % 5.3 % (0.0-3.0); HEMATOCRIT 45.4 % (42.0-52.0); LYMPH # 4.6 10^3/uL (1.5-5.0); LYMPH % 40.2 % (24.0-44.0); MEAN CORPUSCULAR HEMOGLOBIN 29.2 pg (27.0-33.0); MEAN CORPUSCULAR VOLUME 88.3 fl (80.0-96.0); MONO # 0.8 10^3/uL (0.0-0.8); MONO % 6.9 % (0.0-5.0); NEUTROPHILS # 5.3 10^3/uL (1.5-8.5); NEUTROPHILS % 46.3 % (36.0-66.0); PLATELET COUNT, AUTOMATED 260 10^3/uL (150-450); RED BLOOD COUNT 5.14 10^6/uL (4.30-6.10); WHITE BLOOD COUNT 11.4 10^3/uL (4.0-10.0)
[2020-07-19 00:40] VITALS: O2SAT 96
[2020-07-19 00:43] LABS: INR 0.95; PROTHROMBIN TIME 12.8 SECONDS (12.5-14.3)
[2020-07-19 00:44] LABS: PARTIAL THROMBOPLASTIN TIME 28.1 SECONDS (24.2-38.5)
[2020-07-19 00:57] LABS: ALBUMIN 3.8 GM/DL (3.2-5.2); ALT/SGPT 71 U/L (12-78); BILIRUBIN,DIRECT 0.1 MG/DL (0.0-0.2); BILIRUBIN,TOTAL 0.3 MG/DL (0.2-1.0); BLOOD UREA NITROGEN 13 MG/DL (7-18); CALCIUM LEVEL 9.4 MG/DL (8.5-10.1); CARBON DIOXIDE LEVEL 27 MEQ/L (21-32); CHLORIDE LEVEL 105 MEQ/L (98-107); CK-MB VALUE MASS 1.5 NG/ML (<3.6); CPK CREATINE PHOSPHOKINASE 201 U/L (39-308); CREATININE FOR GFR 1.04 MG/DL (0.70-1.30); FREE T4 0.86 NG/DL (0.76-1.46); GLOMERULAR FILTRATION RATE > 60.0 (>60); GLUCOSE, FASTING 153 MG/DL (70-100); LIPASE 188 U/L (73-393); MB/CK RELATIVE INDEX 0.75 (< OR =4); POTASSIUM SERUM 3.7 MEQ/L (3.5-5.1); SODIUM LEVEL 139 MEQ/L (136-145); TROPONIN I < 0.02 NG/ML (< 0.10)
--- NOTE | 2020-07-19 01:17 | REPVR ---
PROCEDURE INFORMATION: Exam: XR Chest, 2 Views Exam date and time: 07/19/2020 1:01 AM Age: 34 years old Clinical indication: Other: Dizzyness; Additional info: Dizziness TECHNIQUE: Imaging protocol: XR of the chest Views: 2 views. COMPARISON: CR PORTABLE CHEST X-RAY 06/02/2020 1:45 AM FINDINGS: Lungs: Unremarkable. No consolidation. Pleural space: Bilateral pleural thickening. No pleural effusion. No pneumothorax. Heart/Mediastinum: Unremarkable. No cardiomegaly. Bones/joints: Unremarkable. IMPRESSION: No acute findings. Electronically signed by: Negrito Murguia On 07/19/2020 01:18:14 AM
[2020-07-19 03:00] VITALS: BP 109/60
--- NOTE | 2020-07-20 07:58 | ECGEPIP ---
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
== END 2020-07-19 03:17 | disposition home or self-care (01) ==
LOC: M ED 00:08
DX: R00.2 Palpitations (principal); R42 Dizziness and giddiness; I10 Essential (primary) hypertension; E66.9 Obesity, unspecified; G89.29 Other chronic pain; M54.9 Dorsalgia, unspecified; F32.9 Major depressive disorder, single episode, unspecified; F41.9 Anxiety disorder, unspecified; F25.9 Schizoaffective disorder, unspecified; F17.200 Nicotine dependence, unspecified, uncomplicated; Z79.899 Other long term (current) drug therapy

== ENCOUNTER 2020-08-14 08:13 | Emergency (ER) | payer OTHER ==
[~2020-08-14] VITALS: Ht 170.2 cm; Wt 113.6 kg
[~2020-08-14 08:13] MED LIST changes: -DULO1CAP6; -LISI-538 PO; +LISI10TA22 PO; -LISI10TA4 PO; +LISI20TA33 PO; +QUET50TA3 PO; -QUET5TAB PO
[2020-08-14] MEDS ORDERED: ONDANSETRON 4MG/2ML VIAL IV ONE (09:00)
[2020-08-14] MEDS ORDERED: MECLIZINE 25 MG TABLET PO ONE (09:00)
[2020-08-14] MEDS ORDERED: NS 1,000 ML IV ONE (09:00)
[2020-08-14] MEDS ORDERED: MECL-86 PO (11:04)
[2020-08-14] MEDS ORDERED: ZOFR4TAB16 PO (11:04)
[2020-08-14 11:32] VITALS: BP 132/90
--- NOTE | 2020-08-14 12:46 | ECGEPIP ---
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
== END 2020-08-14 13:19 | disposition home or self-care (01) ==
LOC: M ED 08:13 → EDBD 08:13 → M ED 13:19
DX: R42 Dizziness and giddiness (principal); R00.0 Tachycardia, unspecified; R94.31 Abnormal electrocardiogram [ECG] [EKG]; R11.0 Nausea; R61 Generalized hyperhidrosis; R19.7 Diarrhea, unspecified; I10 Essential (primary) hypertension; Z87.891 Personal history of nicotine dependence; Z79.899 Other long term (current) drug therapy
CPT/HCPCS: 80047; 93005; 96361; 96374; 99284; J2405

== ENCOUNTER 2020-09-24 02:17 | Emergency (ER) | payer OTHER ==
[~2020-09-24] VITALS: Ht 170.2 cm; Wt 113.9 kg
[~2020-09-24 02:17] MED LIST changes: +MECL-86 PO; +ZOFR4TAB16 PO
[2020-09-24 02:18] VITALS: BP 136/83
[2020-09-24] MEDS ORDERED: TIZA4TAB4 (02:30)
[2020-09-24] MEDS ORDERED: NS 1,000 ML IV ONE (03:05)
[2020-09-24 03:48] LABS: APPEARANCE, URINE CLEAR (CLEAR); BACTERIA, URINE AUTO NEGATIVE (NEGATIVE); BILIRUBIN, URINE AUTO NEGATIVE (NEGATIVE); BLOOD, URINE BLOOD NEGATIVE (NEGATIVE); COLOR, URINE STRAW (YELLOW); GLUCOSE, URINE (UA) AUTO NEGATIVE (NEGATIVE); KETONE, URINE AUTO NEGATIVE (NEGATIVE); LEUKOCYTE ESTERASE, URINE AUTO NEGATIVE (NEGATIVE); NITRITE, URINE AUTO NEGATIVE (NEGATIVE); PROTEIN, URINE AUTO NEGATIVE (NEGATIVE); RBC, URINE AUTO 1 /HPF (0-3); SPECIFIC GRAVITY URINE AUTO 1.002 (1.002-1.035); SQUAMOUS EPITHELIAL CELL UR AU 0 /HPF (0-6); UROBILINOGEN, URINE AUTO 0.2 mg/dL (0.0-2.0); WBC, URINE AUTO 0 /HPF (0-3)
== END 2020-09-24 06:20 | disposition home or self-care (01) ==
LOC: M ED 02:17
DX: R25.2 Cramp and spasm (principal); F12.10 Cannabis abuse, uncomplicated; Z87.898 Personal history of other specified conditions; Z79.899 Other long term (current) drug therapy

== ENCOUNTER 2020-10-07 00:31 | Emergency (ER) | payer OTHER ==
[~2020-10-07] VITALS: Ht 170.2 cm; Wt 116.5 kg
[~2020-10-07 00:31] MED LIST changes: +TIZA4TAB4
[2020-10-07 00:32] VITALS: BP 122/83
== END 2020-10-07 02:27 | disposition left against medical advice (07) ==
LOC: M ED 00:31
DX: Z53.21 Procedure and treatment not carried out due to patient leaving prior to being seen by health care provider (principal)

== ENCOUNTER → 2021-02-02 | Outpatient (CLI) | payer OTHER ==
[~2021-02-02] MED LIST changes: +GABA-283 PO; -GABA-845 PO
[2021-02-02 13:20] LABS: BASO # 0.1 10^3/uL (0.0-0.2); BASO % 0.7 % (0.0-1.0); EOS # 0.3 10^3/uL (0.0-0.5); EOS % 2.6 % (0.0-3.0); HEMATOCRIT 46.5 % (42.0-52.0); HEMOGLOBIN 15.6 g/dl (13.5-17.5); LYMPH # 4.1 10^3/uL (1.5-5.0); LYMPH % 42.3 % (24.0-44.0); MEAN CORPUSCULAR HEMOGLOBIN 29.3 pg (27.0-33.0); MEAN CORPUSCULAR HGB CONC 33.5 g/dl (32.0-36.5); MEAN CORPUSCULAR VOLUME 87.2 fl (80.0-96.0); MONO # 0.9 10^3/uL (0.0-0.8); MONO % 9.3 % (2.0-8.0); NEUTROPHILS # 4.3 10^3/uL (1.5-8.5); NEUTROPHILS % 44.3 % (36.0-66.0); PLATELET COUNT, AUTOMATED 278 10^3/uL (150-450); RED BLOOD COUNT 5.33 10^6/uL (4.30-6.10); WHITE BLOOD COUNT 9.6 10^3/uL (4.0-10.0)
[2021-02-02 13:54] LABS: ALBUMIN 3.9 GM/DL (3.2-5.2); ALT/SGPT 73 U/L (12-78); BILIRUBIN,DIRECT < 0.1 MG/DL (0.0-0.2); BILIRUBIN,TOTAL 0.3 MG/DL (0.2-1.0); BLOOD UREA NITROGEN 11 MG/DL (7-18); CREATININE FOR GFR 0.84 MG/DL (0.70-1.30); FERRITIN 74 NG/ML (26-388); GLOMERULAR FILTRATION RATE > 60.0 (>60); IRON (FE) 83 UG/DL (65-175); PERCENT SATURATION 23.7 % (19.7-50.0); TOTAL IRON BINDING CAPACITY 350 UG/DL (250-450)
== END ==
LOC: M LAB 12:52
PROVIDERS: ATTEND Internal Medicine Gastroenterology
DX: R19.7 Diarrhea, unspecified (principal)

== ENCOUNTER 2021-02-08 00:31 | Emergency (ER) | payer OTHER ==
[2021-02-08 04:01] VITALS: BP 125/84
--- NOTE | 2021-02-08 05:58 | ECGEPIP ---
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
== END 2021-02-08 04:03 | disposition home or self-care (01) ==
LOC: M ED 00:31
DX: R07.89 Other chest pain (principal); R00.0 Tachycardia, unspecified; F25.9 Schizoaffective disorder, unspecified; F41.1 Generalized anxiety disorder; F12.10 Cannabis abuse, uncomplicated; Z79.899 Other long term (current) drug therapy

== ENCOUNTER 2021-03-05 23:24 | Emergency (ER) | payer OTHER ==
[~2021-03-05] VITALS: Ht 170.2 cm; Wt 102.3 kg
[~2021-03-05 23:24] MED LIST changes: -QUET400T PO; +QUET400T2 PO; -QUET50TA3 PO; +QUET50TA4 PO
[2021-03-06] MEDS ORDERED: NS 1,000 ML IV ONE (00:45)
--- NOTE | 2021-03-06 01:00 | REPVR ---
PROCEDURE INFORMATION: Exam: CT Cervical Spine Without Contrast Exam date and time: 03/05/2021 12:03 AM Age: 35 years old Clinical indication: Syncope TECHNIQUE: Imaging protocol: Computed tomography images of the cervical spine without contrast. Radiation optimization: All CT scans at this facility use at least one of these dose optimization techniques: automated exposure control; mA and/or kV adjustment per patient size (includes targeted exams where dose is matched to clinical indication); or iterative reconstruction. COMPARISON: No relevant prior studies available. FINDINGS: Limitations: Motion artifact degrades the image quality. Vertebrae: There is straightening of the normal cervical lordosis. Allowing for motion artifact, no fracture or subluxation is identified in the cervical spine. C2-C3: The disc height is preserved. No disc herniation is noted. No spinal canal stenosis is noted. No neural foraminal stenosis is noted. The facet joints are unremarkable. C3-C4: The disc height is preserved. No disc herniation is noted. No spinal canal stenosis is noted. No neural foraminal stenosis is noted. The facet joints are unremarkable. C4-C5: The disc height is preserved. No disc herniation is noted. No spinal canal stenosis is noted. No neural foraminal stenosis is noted. The facet joints are unremarkable. C5-C6: The disc height is preserved. No disc herniation is noted. No spinal canal stenosis is noted. No neural foraminal stenosis is noted. The facet joints are unremarkable. C6-C7: The disc height is preserved. No disc herniation is noted. No spinal canal stenosis is noted. No neural foraminal stenosis is noted. The facet joints are unremarkable. C7-T1: The disc height is preserved. No disc herniation is noted. No spinal canal stenosis is noted. No neural foraminal stenosis is noted. There is mild osteoarthritis of the left facet joint. T1-T2: The disc height is preserved. No disc herniation is noted. No spinal canal stenosis is noted. No neural foraminal stenosis is noted. The facet joints are unremarkable. Soft tissues: Unremarkable. No soft tissue fluid collection. Prevertebral Space: No prevertebral soft tissue swelling. Lungs: The imaged lung apices are clear. The lungs were not fully imaged. IMPRESSION: Straightening of the normal cervical lordosis, but no fracture or subluxation identified in the cervical spine allowing for motion artifact. Electronically signed by: Elliot Guajardo On 03/06/2021 00:59:34 AM
--- NOTE | 2021-03-06 01:00 | REPVR ---
PROCEDURE INFORMATION: Exam: CT Head Without Contrast Exam date and time: 03/05/2021 12:03 AM Age: 35 years old Clinical indication: Syncope TECHNIQUE: Imaging protocol: Computed tomography of the head without contrast. Radiation optimization: All CT scans at this facility use at least one of these dose optimization techniques: automated exposure control; mA and/or kV adjustment per patient size (includes targeted exams where dose is matched to clinical indication); or iterative reconstruction. COMPARISON: CT Head without contrast 01/24/2020 12:43 PM FINDINGS: Brain: There is no CT evidence for an acute large vessel territorial infarct. No acute intracranial hemorrhage is seen. No mass effect, midline shift, or herniation is noted. 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 Cerebral ventricles: Normal. No hydrocephalus. Paranasal sinuses: The imaged portions of the sinuses are well aerated. No air-fluid levels are noted in the sinuses. Mastoid air cells: The mastoid air cells are well aerated. Orbital cavity: The globes and orbits are intact and normal in appearance. Bones/joints: There is a left frontal calvarial day hole defect, which is unchanged compared to the CT head on 01/24/2020. No acute fracture or bony destructive changes are noted involving the skull. Soft tissues: Unremarkable. No soft tissue fluid collection. IMPRESSION: No acute intracranial abnormality. Electronically signed by: Elliot Guajardo On 03/06/2021 00:59:41 AM
--- NOTE | 2021-03-06 01:38 | REPVR ---
PROCEDURE INFORMATION: Exam: XR Chest Exam date and time: 03/06/2021 12:52 AM Age: 35 years old Clinical indication: Other: Syncope TECHNIQUE: Imaging protocol: XR of the chest. Views: 2 views. COMPARISON: 1. CR Chest, 2 view PA, Lat 2020-07-19 00:50 2. CR PORTABLE CHEST X-RAY 2020-06-02 01:45 3. CR Chest, 2 view PA, Lat 2020-04-22 01:35 FINDINGS: Limitations: Limited by patient's body habitus. Lungs: No focal airspace consolidation. Pleural spaces: Unremarkable. No pleural effusion. No pneumothorax. Heart/Mediastinum: Unremarkable. No cardiomegaly. Bones/joints: Unremarkable. IMPRESSION: No focal airspace consolidation. Electronically signed by: David Packer On 03/06/2021 01:38:11 AM
[2021-03-06 01:42] LABS: BASO # 0.1 10^3/uL (0.0-0.2); BASO % 0.6 % (0.0-1.0); EOS # 0.3 10^3/uL (0.0-0.5); HEMATOCRIT 39.6 % (42.0-52.0); HEMOGLOBIN 13.6 g/dl (13.5-17.5); LYMPH # 4.3 10^3/uL (1.5-5.0); LYMPH % 48.7 % (24.0-44.0); MEAN CORPUSCULAR HEMOGLOBIN 30.2 pg (27.0-33.0); MEAN CORPUSCULAR HGB CONC 34.3 g/dl (32.0-36.5); MEAN CORPUSCULAR VOLUME 87.8 fl (80.0-96.0); MONO # 0.8 10^3/uL (0.0-0.8); MONO % 8.7 % (2.0-8.0); NEUTROPHILS # 3.4 10^3/uL (1.5-8.5); NEUTROPHILS % 38.4 % (36.0-66.0); PLATELET COUNT, AUTOMATED 270 10^3/uL (150-450); RED BLOOD COUNT 4.51 10^6/uL (4.30-6.10); WHITE BLOOD COUNT 8.7 10^3/uL (4.0-10.0)
[2021-03-06 02:13] LABS: ALBUMIN 3.2 GM/DL (3.2-5.2); ALT/SGPT 54 U/L (12-78); BILIRUBIN,DIRECT < 0.1 MG/DL (0.0-0.2); BILIRUBIN,TOTAL 0.3 MG/DL (0.2-1.0); LIPASE 189 U/L (73-393); TOTAL PROTEIN 6.2 GM/DL (6.4-8.2)
[2021-03-06 02:14] LABS: BLOOD UREA NITROGEN 12 MG/DL (7-18); CALCIUM LEVEL 8.5 MG/DL (8.5-10.1); CARBON DIOXIDE LEVEL 26 MEQ/L (21-32); CHLORIDE LEVEL 111 MEQ/L (98-107); CK-MB VALUE MASS 1.3 NG/ML (<3.6); CPK CREATINE PHOSPHOKINASE 152 U/L (39-308); CREATININE FOR GFR 0.89 MG/DL (0.70-1.30); ETHYL ALCOHOL (ETHANOL) < 0.003 % (0.000-0.010); FREE T4 0.88 NG/DL (0.76-1.46); GLOMERULAR FILTRATION RATE > 60.0 (>60); GLUCOSE, FASTING 132 MG/DL (70-100); MB/CK RELATIVE INDEX 0.86 (< OR =4); POTASSIUM SERUM 3.6 MEQ/L (3.5-5.1); SODIUM LEVEL 142 MEQ/L (136-145); TROPONIN I < 0.02 NG/ML (< 0.10)
[2021-03-06 02:35] VITALS: BP 105/61
[2021-03-06 02:50] VITALS: O2SAT 98
--- NOTE | 2021-03-06 06:29 | ECGEPIP ---
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
== END 2021-03-06 03:01 | disposition home or self-care (01) ==
LOC: M ED 23:24
DX: R55 Syncope and collapse (principal); I10 Essential (primary) hypertension; R42 Dizziness and giddiness; F41.9 Anxiety disorder, unspecified; F32.9 Major depressive disorder, single episode, unspecified; Z79.899 Other long term (current) drug therapy

== ENCOUNTER 2021-04-17 23:46 | Emergency (ER) | payer OTHER ==
[~2021-04-17] VITALS: Ht 172.7 cm; Wt 106.8 kg
[2021-04-18 00:09] VITALS: BP 124/76
== END 2021-04-18 06:30 | disposition home or self-care (01) ==
LOC: M ED 23:46
DX: S09.90XA Unspecified injury of head, initial encounter (principal); W19.XXXA Unspecified fall, initial encounter; Y92.099 Unspecified place in other non-institutional residence as the place of occurrence of the external cause; Y93.9 Activity, unspecified; Y99.9 Unspecified external cause status; I10 Essential (primary) hypertension; F32.9 Major depressive disorder, single episode, unspecified; F41.9 Anxiety disorder, unspecified; K21.9 Gastro-esophageal reflux disease without esophagitis; Z79.899 Other long term (current) drug therapy

== ENCOUNTER 2021-04-25 22:51 | Emergency (ER) | payer OTHER ==
[~2021-04-25] VITALS: Ht 172.7 cm; Wt 107.1 kg
[~2021-04-25 22:51] MED LIST changes: -IBUP200T45 PO; +IBUP200T46 PO
--- OUTSIDE RECORDS SUMMARY | 2021-04-25 22:57 | CCD ---
Author Author Ronnell Lawson Organization Unknown Address [address] [address] Phone Care Team Providers Care Operations Forester Name Role Phone LawsonTitaSergio PCP Allergies, Adverse Reactions, Alerts Concept Allergy Name Reaction Severity Onset Date Status Documentation Date Phone Number Npid Taxonomy Code Taxonomy Desc Author Last Name Author Fi rst Name Concept Type [id number] Invega Trinza (paliperidone palm (3-month)) Blah 06/20/2017 Active 06/20/2017 [id number] Licensed Practical Nurse Sandra killian RXNORM Problem List Concept Problem Description Status Start Date Created Date Resolv ed Date Snomed Code F25.1 Schizoaffective Disorder, Depressive type Active 06/24/20 19 06/24/2019 F41.1 Generalized Anxiety Disorder Active 03/24/2016 03/24/2016 F51.01 Insomnia Disorder Active 06/24/2019 06/24/2019 Z72.0 Tobacco Use Disorder, Mild Active 04/19/2021 F12.10 Cannabis Use Disorder, Mild Active 04/19/2021 Medications Rx Norm Medication Route Route Concept Start Date Stop Date Dosage Mark quency Duration Formula Strength Dosage Form Dosage Form Code Dosage Description Medication Id Account Npid Author First Name Author Last Name Taxonomy Code Taxonomy Desc Phone Number [id number] duloxetine by mouth [id number] 05/17/2020 twice a day 60 mg capsule,delayed release(DR/EC) 89572 [id number] Nic Lawson [id number] Nurse Practitioner [phone] [id number] buspirone 09/27/2020 06/07/2021 28 10 mg tablet [id number] Sergio Lawson [id number] Nurse Practitioner [phone] [id number] quetiapine 09/27/2020 06/07/2021 28 400 mg tablet 21973 [id number] Sergio Lawson [id number] Nurse Practitioner [id number] [phone] [id number] quetiapine 01/21/2021 06/13/2021 30 100 mg tablet 09912 [id number] Sergio Lawson [id number] Nurse Practitioner [phone] Social History Social History Element Description Concept Effective Date Smoking Status Current every day smoker [id number] 2 Immunizations No Data in Section Vital Signs No Data in Section Procedures Date Concept Id Description Targeted Site Concept Targeted Site Concept Type 04/19/2021 13502-16 [facility] Telemed E/M Lvl 3--Est pt CPT Patient has no history of implantable de vices Encounters Encounter Start Date End Date Encounter Type Description Diagnosis Di agnosis Desc Location Author First Name Author Last Name Npid Taxonomy Cod e Taxonomy Desc Phone Number Location Addr1 Location Addr2 Location [facility] Location Sta te Location [facility] [id number] 04/19/2021 04/19/2021 21624-07 [facility] Telemed E/M Lvl 3--Est p t F25.1 Schizoaffective disorder, depressive type [facility] [place] [id number] Nurse Practitioner [phone] [address] [address] Plan of Treatment No Data in Section Lab Results No Data in Section Instructions No Data in Section Functional Cognitive Status No Data in Section Insurance Providers Insurance Id Policy Effective Date Policy Thru Date 2 Minutes N madhu [id number] 2018 [employer] Managed Shantell osuna
--- OUTSIDE RECORDS SUMMARY | 2021-04-25 22:57 | CCD | Continuity of Care Document ---
Author Author Ronnell CRUZ Organization Unknown Address [address] [facility], [address] [place] [address] Phone [phone] Care Team Providers Care Activities Therapist Name Role Phone Marty Lara M.D. AUTM [phone] Problems Active Problems Provider Date Essential hypertension Jamin Cruz M.D. Onset: 01/07 Social History Type Date Description Comments Sex Unknown ETOH Use Denies alcohol use Tobacco Use Start: Unknown Non Smoker Allergies, Adverse Reactions, Alerts Description No Known Drug Allergies Medications Active Medications SIG Qnty Indications Ordering Provide r Date Clenpiq 10-3.5-12mg-GM -GM/160ML S olution follow pre-procedure instructions. start day before procedure. (if not covered by insurance please fill gavilyte script). 320ml Maria Teresa Cruz M.D. 02/16/2021 Gavilyte-G 236gm Solution Rec mix with 4 liters of water to prepare solution. follow pre-procedure instructions. 4000ml Jamin Cruz M.D. 02/16/[address] take 4 tablets together as per bowel preparation instructions. 4tabs Jamin Cruz M.D. 02/16/2021 Buspirone HCL 10mg Tablets 1t ab tid Unknown Duloxetine HCL 60mg Caps DR Part 1tab qd Unknown Gabapentin 800mg Tablets 1tab tid Unknown Lisinopril 10mg Tablets 1tab qd Unknown Omeprazole 20mg Capsules DR 1 cap bid Unknown Quetiapine Fumarate 400mg Tablets 1tab qd (take w/50mg) Unknown Quetiapine Fumarate 50mg Tablets 1tab qd (take w/400mg) Unknown Immunizations Description No Information Available Vital Signs Date Vital Result Comment 02/02/2021 12:11pm BP Systolic 118 mmHg BP Diastolic 70 mmHg Height 67 inches 5'7" Weight 230.00 lb BMI (Body Mass Index) 36.0 kg/m2 Mathews Body Weight 148 lb Weight 104.328 kg BSA (Body Surface Area) 2.15 m2 Results Test Acquired Date Facility Test Result H/L Range Note CBC With Differential 02/02/2021 [facility] [address] [place] [address] [phone] White Blood Count 9.6 10 Normal 4.0-10.0 Red Blood Count 5.33 10 Normal 4.30-6.10 Hemoglobin 15.6 g/dL Normal 13.5-17.5 Hematocrit 46.5 % Normal 42.0-52.0 Mean Corpuscular Volume 87.2 fl Normal 80.0-96.0 Mean Corpuscular Hemoglobin 29.3 pg Normal 27.0-33.0 Mean Corpuscular HGB Conc 33.5 g/dL Normal 32.0-36.5 Red Cell Distribution Width 12.9 % Normal 11.5-14.5 Platelet Count, Automated 278 10 Normal 150-450 Neutrophils % 44.3 % Normal 36.0-66.0 Lymph % 42.3 % Normal 24.0-44.0 [place] % 9.3 % High 2.0-8.0 Eos % 2.6 % Normal 0.0-3.0 Baso % 0.7 % Normal 0.0-1.0 Immature Granulocyte % 0.8 % Normal 0-3.0 Nucleated Red Blood Cell % 0.0 % Normal 0-0 Neutrophils # 4.3 10 Normal 1.5-8.5 Lymph # 4.1 10 Normal 1.5-5.0 [place] # 0.9 10 High 0.0-0.8 Eos # 0.3 10 Normal 0.0-0.5 Baso # 0.1 10 Normal 0.0-0.2 Total Iron Binding Capacit 02/02/2021 [facility] Main Lab [address] [place] [address] [phone] Iron (Fe) 83 g/dL Normal 65-175 Total Iron Binding Capacity 350 g/dL Normal 250-450 Percent Saturation 23.7 % Normal 19.7-50.0 Laboratory test finding 02/02/2021 [facility] Main Lab [address] [place] [phone] Ferritin 74 NG/ML Normal 26-388 BUN & Creatinine ([facility]) 02/02/2021 [facility] [address] [place] [address] [phone] Blood Urea Nitrogen 11 mg/dL Normal 7-18 Creatinine With GFR 02/02/2021 [facility] [address] [place] [address] [phone] Creatinine For GFR 0.84 mg/dL Normal 0.70-1.30 Glomerular Filtration Rate > 60.0 Normal >60 1 Liver Profile 02/02/2021 [facility] [address] [place] [phone] Ast/Sgot 38 U/L High 7-37 Alt/SGPT 73 U/L Normal 12-78 Alkaline Phosphatase 115 U/L Normal 45-117 Bilirubin,Total 0.3 mg/dL Normal 0.2-1.0 Bilirubin,Direct < 0.1 mg/dL Normal 0.0-0.2 Total Protein 7.0 GM/DL Normal 6.4-8.2 Albumin 3.9 GM/DL Normal 3.2-5.2 Albumin/Globulin Ratio 1.3 Normal Laboratory test finding 02/02/2021 [facility] Main Lab [address] [place] [phone] Tissue Transglutaminase IgA <2 U/mL Normal 0-3 2 Iga Subclasses 02/02/2021 [facility] [address] [place] [address] [phone] IgA Serum (part of Subclasses) 138 mg/dL Normal 9 0-386 Igasub2 105.2 mg/dL Normal 73.2-301.2 Igasub3 26.2 mg/dL Normal 13.4-97.9 Laboratory test finding 02/02/2021 [facility] Main Lab [address] [place] [address] [phone] Stool For Polys <pending> Fat Fecal Qualitative <pending> Pancreatic Elastase Stool Sendout <pending> 1 Units are mL/min/1.73 m2 Chronic Kidney Disease Staging per NKF: Stage I & II GFR >=60 Normal to Mildly Decreased Stage III GFR 30-59 Moderately Decreased Stage IV GFR 15-29 Severely Decreased Stage V GFR <15 Very Little GFR Left ESRD GFR <15 on TANK MAKER WOOD 2 Negative 0 - 3 Weak Positive 4 - 10 Positive >10 . Tissue Transglutaminase (tTG) has been identified as the endomysial antigen. Studies have demonstr- ated that endomysial IgA antibodies have over 99% specificity for gluten sensitive enteropathy. Performed at: - [facility] [address] [id number] Devops Solutions Architect: Trinity Lowe MD, Phone: [phone] Performed at: - [facility] [address] [id number] Devops Solutions Architect: Phil Badillo MD, Phone: [phone] Procedures Date Code Description Status 02/02/2021 61636 Office/Outpatient New Moderate M DM 45-59 Minutes Completed Medical Devices Description No Information Available Encounters Type Date Location Provider Dx Diagnosis Office Visit 02/02/2021 11:10a [facility] R19.7 Diarrhea, unspecified K92.1 Melena Assessments Date Code Description Provider 02/02/2021 R19.7 Diarrhea, unspecified Jamin Cruz M.D. 02/02/2021 K92.1 Melena Jamin Watkins ala, M.D. Plan of Treatment Future Appointment(s):* 04/11/2021 2:00 am - Jamin Cruz M.D. at [facility] Gastroenterology Practice Functional Status Description No Information Available Mental Status Description No Information Available Referrals Refer to Dr Reason for Referral Status Appt Date Jamin Cruz M.D. K59.00 CONSTIPATION Scheduled 02/02/2021 [facility] [address] [facility] [facility], [address] [place] [address] [phone]
--- OUTSIDE RECORDS SUMMARY | 2021-04-25 22:57 | CCD | Continuity of Care Document ---
Author Author Ronnell CRUZ Organization Unknown Address [address] [facility], [address] [place] [address] Phone [phone] Care Team Providers Care Pulp Maker Name Role Phone Marty Lara M.D. AUTM [phone] Problems Active Problems Provider Date Essential hypertension Jamin Cruz M.D. Onset: 01/07 Social History Type Date Description Comments Sex Unknown ETOH Use Denies alcohol use Tobacco Use Start: Unknown Non Smoker Allergies, Adverse Reactions, Alerts Description No Known Drug Allergies Medications Active Medications SIG Qnty Indications Ordering Provide r Date Buspirone HCL 10mg Tablets 1t ab tid Unknown Duloxetine HCL 60mg Caps DR Part 1tab qd Unknown Gabapentin 800mg Tablets 1tab tid Unknown Lisinopril 10mg Tablets 1tab qd Unknown Omeprazole 20mg Capsules DR 1 cap bid Unknown Quetiapine Fumarate 400mg Tablets 1tab qd (take w/50mg) Unknown Quetiapine Fumarate 50mg Tablets 1tab qd (take w/400mg) Unknown Immunizations Description No Information Available Vital Signs Description No Information Available Results Description No Information Available Procedures Description No Information Available Medical Devices Description No Information Available Encounters Description No Information Available Assessments Date Code Description Provider 02/02/2021 R19.7 Diarrhea, unspecified Jamin Cruz M.D. 02/02/2021 K92.1 Sera Watkins ala, M.D. 02/02/2021 K62.5 Hemorrhage of anus and rectum Estrella Cruz M.D. Plan of Treatment 02/02/2021 - Jamin Cruz M.D.* R19.7 Diarrhea, unspecified * K92.1 Melena * K62.5 Hemorrhage of anus and rectum* New Labs:* CBC With Differential, Ordered: 02/02/21 * Total Iron Binding Capacit, Ordered: 02/02/21 * Ferritin, Ordered: 02/02/21 * BUN & Creatinine ([facility]), Ordered: 02/02/21 * Liver Profile, Ordered: 02/02/21 * Tissue Transglutaminase Iga, Ordered: 02/02/21 * Iga Subclasses, Ordered: 02/02/21 * Stool For Polys, Ordered: 02/02/21 * Fat Fecal Qualitative, Ordered: 02/02/21 * Pancreatic Elastase Stool Sendout, Ordered: 02/02/21 * Clostridium Difficile PCR, Ordered: 02/02/21 * New Orders:* Colonoscopy, Ordered: 02/02/21 Functional Status Description No Information Available Mental Status Description No Information Available Referrals Refer to Dr Reason for Referral Status Appt Date Jamin Cruz M.D. K59.00 CONSTIPATION Scheduled 02/02/2021 [facility] [address] [facility], [address] [place] [address] [phone]
--- OUTSIDE RECORDS SUMMARY | 2021-04-25 22:57 | CCD ---
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 Next Of Kin [address] [place], [place] [id number] SUSANNA LOWE Next Of Kin [address] [place] [address] [place] [address] [place] [address] [place] [address] SUSANNA YUSUF Next Of Kin [address] [place] [address] [employer] Next [place] [address] DOMINOS PIZZA Next Of Kin [address] [place] [address] [place] [address] [place] [address] [employer] Next Of Kin Unknown Unavail able STEVE [place] [address] ST Next Of Kin Unknown Unavailable Louie WHITLOCK Next Of Kin [address] [id number] UE Next Of Kin Unknown Unavailable LOREE KELLY Next Of Kin [address] [place] [phone] Unavailable SHANNA ARAGON Next Of Kin [address] [id number] SHIMA ARAGON Next Of Kin [address] [place] [place] [address] Care Team Providers Care Coffee Host Name Role Phone Jaquelin Lara MD Unavailable Unavailable Jaquelin Lara MD Unavailable Unavailable Jaquelin Lara MD Unavailable Unavailable Jaquelin Lara MD Unavailable Unavailable Jaquelin Lara MD Unavailable Unavailable Jaquelin Lara MD Unavailable Unavailable Jaquelin Lara MD Unavailable Unavailable Jaquelin Lara MD Unavailable Unavailable Jaquelin Lara MD Unavailable Unavailable Jaquelin Lara MD Unavailable Unavailable Jaquelin Lara MD Unavailable Unavailable Jaquelin Lara MD Unavailable Unavailable Jaquelin Lara MD Unavailable Unavailable Jaquelin Lara MD Unavailable Unavailable Jaquelin Lara MD Unavailable Unavailable Jaquelin Lara MD Unavailable Unavailable Jaquelin Lara MD Unavailable Unavailable Jaquelin Lara MD Unavailable Unavailable Jaquelin Lara MD Unavailable Unavailable Jaquelin Lara MD Unavailable Unavailable Jaquelin Lara MD Unavailable Unavailable Jaquelin Lara MD Unavailable Unavailable Jaquelin Lara MD Unavailable Unavailable Jaquelin Lara MD Unavailable Unavailable Jaquelin Lara MD Unavailable Unavailable Jaquelin Lara MD Unavailable Unavailable Jaquelin Lara MD Unavailable Unavailable Jaquelin Lara MD Unavailable Unavailable Jaquelin Lara MD Unavailable Unavailable Jaquelin Lara MD Unavailable Unavailable Jaquelin Lara MD Unavailable Unavailable Jaquelin Lara MD Unavailable Unavailable Jaquelin Lara MD Unavailable Unavailable Jaquelin Lara MD Unavailable Unavailable Jaquelin Lara MD Unavailable Unavailable Jaquelin Lara MD Unavailable Unavailable Jaquelin Lara MD Unavailable Unavailable Jaquelin Lara MD Unavailable Unavailable Jaquelin Lara MD Unavailable Unavailable Jaquelin Lara MD Unavailable Unavailable Jaquelin Lara MD Unavailable Unavailable Jaquelin Lara MD Unavailable Unavailable Jaquelin Lara MD Unavailable Unavailable Jaquelin Lara MD Unavailable Unavailable Jaquelin Lara MD Unavailable Unavailable Jaquelin Lara MD Unavailable Unavailable Jaquelin Lara MD Unavailable Unavailable Jaquelin Lara MD Unavailable Unavailable Jaquelin Lara MD Unavailable Unavailable Jaquelin Lara MD Unavailable Unavailable Jaquelin Lara MD Unavailable Unavailable Jaquelin Lara MD Unavailable Unavailable Jaquelin Lara MD Unavailable Unavailable Jaquelin Lara MD Unavailable Unavailable Jaquelin Lara MD Unavailable Unavailable Jaquelin Lara MD Unavailable Unavailable Jaquelin Lara MD Unavailable Unavailable Jaquelin Lara MD Unavailable Unavailable Jaquelin Lara MD Unavailable Unavailable Jaquelin Lara MD Unavailable Unavailable Jaquelin Lara MD Unavailable Unavailable Jaquelin Lara MD Unavailable Unavailable Jaquelin Lara MD Unavailable Unavailable Jaqeulin Lara MD Unavailable Unavailable Jaquelin Lara MD Unavailable Unavailable Jaquelin Lara MD Unavailable Unavailable Jaquelin Lara MD Unavailable Unavailable Jaquelin Lara MD Unavailable Unavailable Jaquelin Lara MD Unavailable Unavailable Jaquelin Lara MD Unavailable Unavailable Jaquelin Lara MD Unavailable Unavailable Jaquelin Lara MD Unavailable Unavailable Jaquelin Lara MD Unavailable Unavailable Jaquelin Lara MD Unavailable Unavailable Jaquelin Lara MD Unavailable Unavailable Jaquelin Lara MD Unavailable Unavailable Jaquelin Lara MD Unavailable Unavailable Jaquelin Lara MD Unavailable Unavailable Jaquelin Lara MD Unavailable Unavailable Jaquelin Lara MD Unavailable Unavailable Jaquelin Lara MD Unavailable Unavailable Jaquelin Lara MD Unavailable Unavailable Jaquelin Lara MD Unavailable Unavailable Jaquelin Lara MD Unavailable Unavailable Jaquelin Lara MD Unavailable Unavailable Jaquelin Lara MD Unavailable Unavailable Jaquelin Lara MD Unavailable Unavailable Jaquelin Lara MD Unavailable Unavailable Jaquelin Lara MD Unavailable Unavailable Jaquelin Lara MD Unavailable Unavailable Jaquelin Lara MD Unavailable Unavailable Jaquelin Lara MD Unavailable Unavailable Jaquelin Lara MD Unavailable Unavailable Nguyen, Chon Unavailable Unavailable Nguyen, Chon Unavailable Unavailable Nguyen, Chon Unavailable Unavailable Nguyen, Chon Unavailable Unavailable Nguyen, Chon Unavailable Unavailable Nguyen, Chon Unavailable Unavailable Nguyen, Chon Unavailable Unavailable Nguyen, Chon Unavailable Unavailable Nguyen, Chon Unavailable Unavailable Nguyen, Chon Unavailable Unavailable Nguyen, Chon Unavailable Unavailable Nguyen, Chon Unavailable Unavailable Nguyen, Chon Unavailable Unavailable Nguyen, Chon Unavailable Unavailable Nguyen, Chon Unavailable Unavailable Nguyen, Chon Unavailable Unavailable Nguyen, Chon Unavailable Unavailable Nguyen, Chon Unavailable Unavailable Nguyen, Chon Unavailable Unavailable Nguyen, Chon Unavailable Unavailable Nguyen, Chon Unavailable Unavailable Nguyen, Chon Unavailable Unavailable Nguyen, Chon Unavailable Unavailable Nguyen, Chon Unavailable Unavailable Nguyen, Chon Unavailable Unavailable Nguyen, Chon Unavailable Unavailable Nguyen, Chon Unavailable Unavailable Nguyen, Chon Unavailable Unavailable Nguyen, Chon Unavailable Unavailable Nguyen, Chon Unavailable Unavailable Nguyen, Chon Unavailable Unavailable Nguyen, Chon Unavailable Unavailable Nguyen, Chon Unavailable Unavailable Nguyen, Chon Unavailable Unavailable Nguyen, Chon Unavailable Unavailable Nguyen, Chon Unavailable Unavailable Nguyen, Chon Unavailable Unavailable Nguyen, Chon Unavailable Unavailable Nguyen, Chon Unavailable Unavailable Nguyen, Chon Unavailable Unavailable Nguyen, Chon Unavailable Unavailable Nguyen, Chon Unavailable Unavailable Nguyen, Chon Unavailable Unavailable Nguyen, Chon Unavailable Unavailable Nguyen, Chon Unavailable Unavailable Franko GARCIA MD Unavailable Unavailable Franko GARCIA MD Unavailable Unavailable Franko GARCIA MD Unavailable Unavailable Franko GARCIA MD Unavailable Unavailable Franko GARCIA MD Unavailable Unavailable Franko GARCIA MD Unavailable Unavailable Franko GARCIA MD Unavailable Unavailable Franko GARCIA MD Unavailable Unavailable Franko GARCIA MD Unavailable Unavailable Franko GARCIA MD Unavailable Unavailable Franko GARCIA MD Unavailable Unavailable Franko GARCIA MD Unavailable Unavailable Franko GARCIA MD Unavailable Unavailable Franko GARCIA MD Unavailable Unavailable Franko GARCIA MD Unavailable Unavailable Franko GARCIA MD Unavailable Unavailable Margie Lawson SENIOR INFORMATION SECURITY ANALYST Unavailable Unavailable Margie Lawson SENIOR INFORMATION SECURITY ANALYST Unavailable Unavailable Margie Lawson SENIOR INFORMATION SECURITY ANALYST Unavailable Unavailable Jose C CRUZ MD Unavailable Unavailable Jose C CRUZ MD Unavailable Unavailable Jose C CRUZ MD Unavailable Unavailable Jose C CRUZ MD Unavailable Unavailable Jose C CRUZ MD Unavailable Unavailable Jose C CRUZ MD Unavailable Unavailable Jose C CRUZ MD Unavailable Unavailable Jose C CRUZ MD Unavailable Unavailable Jose C CRUZ MD Unavailable Unavailable Jose C CRUZ MD Unavailable Unavailable Jose C CRUZ MD Unavailable Unavailable Jose C CRUZ MD Unavailable Unavailable Jose C CRUZ MD Unavailable Unavailable Jose C CRUZ MD Unavailable Unavailable Jose C CRUZ MD Unavailable Unavailable Jose C CRUZ MD Unavailable Unavailable Jose C CRUZ MD Unavailable Unavailable Jose C CRUZ MD Unavailable Unavailable Jose C CRUZ MD Unavailable Unavailable Jose C CRUZ MD Unavailable Unavailable Jose C CRUZ MD Unavailable Unavailable Jose C CRUZ MD Unavailable Unavailable Jose C CRUZ MD Unavailable Unavailable Jose C CRUZ MD Unavailable Unavailable Jose C CRUZ MD Unavailable Unavailable Jose C CRUZ MD Unavailable Unavailable Jose C CRUZ MD Unavailable Unavailable Jose C CRUZ MD Unavailable Unavailable Jose C CRUZ MD Unavailable Unavailable Jose C CRUZ MD Unavailable Unavailable Jose C CRUZ MD Unavailable Unavailable Jose C CRUZ MD Unavailable Unavailable Jose C CRUZ MD Unavailable Unavailable Re-disclosure Warning The records that you are about to access may contain information from federally-assisted alcohol or drug abuse programs. If such information is present, then the following federally mandated warning applies: This information has been disclosed to you from records protected by federal confidentiality rules (42 CFR part 2). The federal rules prohibit you from making any further disclosure of this information unless further disclosure is expressly permitted by the written consent of the person to whom it pertains or as otherwise permitted by 42 CFR part 2. A general authorization for the release of medical or other information is NOT sufficient for this purpose. The Federal rules restrict any use of the information to criminally investigate or prosecute any alcohol or drug abuse patient.The records that you are about to access may contain highly sensitive health information, the redisclosure of which is protected by Article 27-F of the [facility] Public Health law. If you continue you may have access to information: Regarding HIV / AIDS; Provided by facilities licensed or operated by the [facility] Office of Mental Health; or Provided by the [facility] Office for People With Developmental Disabilities. If such information is present, then the following [facility] mandated warning applies: This information has been disclosed to you from confidential records which are protected by state law. State law prohibits you from making any further disclosure of this information without the specific written consent of the person to whom it pertains, or as otherwise permitted by law. Any unauthorized further disclosure in violation of state law may result in a fine or half-way sentence or both. A general authorization for the release of medical or other information is NOT sufficient authorization for further disc losure. Allergies and Adverse Reactions Type Description Substance Reaction Status Data Source(s ) Propensity to adverse reactions to substance Invega Tr inza (paliperidone palm (3-month)) 2.625 ML paliperidone palmitate 312 MG/ML Prefilled Sy ringe [Invega] Active [facility] ([facility] Family History Family Member Name Family Member Gender Family Member Status Date o f Status Description Data Source(s) Unknown Male Problem [facility] ([facility]) Encounters Encounter Providers Location Date Indications Data Source(s ) Outpatient Attender: Sergio Lawson NP [facility] 04/19/2021 02:30:00 AM EDT - 04/19/2021 02:30:00 AM EDT [facility] ([facility]) Attender: Sergio Lawson NP 04/19/2021 12:00:00 AM EDT [facility] ([facility]) Outpatient Attender: LAITH Castellanos/Joey/Johnny crain/Reinmarita 02/02/2021 11:10:00 AM EDT [facility] ([facility] Outpatient Attender: Sergio Lawson NP [facility] 12/22/2020 01:00:00 AM EDT - 12/22/2020 01:00:00 AM EDT [facility] ([facility]) Attender: Sergio Lawson SENIOR INFORMATION SECURITY ANALYST 12/22/2020 12:00:00 AM EDT [facility] ([facility]) Stephane Lara MD: [address] [place] [address], Ph. Attender: Stephane Lara MD [facility] 12/17/2020 12:00:00 AM EDT [facility] ([facility]) Stephane Lara MD: [address] [place] [address], Ph. Attender: Stephane Lara MD [facility] 12/17/2020 12:00:00 AM EDT [facility] ([facility]) Outpatient Attender: Chon Nguyen Physical Therapy 12/08/2020 10:00:0 0 AM EDT [facility] ([facility]) Stephane Lara MD: [address] [place] [address], Ph. Attender: Stephane Lara MD [facility] 12/07/2020 12:00:00 AM EDT [facility] ([facility]) Stephane Lara MD: [address] [place] [address], Ph. Attender: Stephane Lara MD [facility] 12/07/2020 12:00:00 AM EDT [facility] ([facility]) Stephane Lara MD: [address] [place] [address], Ph. Attender: Stephane Lara MD [facility] 10/25/2020 12:00:00 AM EDT [facility] ([facility]) Stephane Lara MD: [address] [place] [address], Ph. Attender: Stephane Lara MD [facility] 10/25/2020 12:00:00 AM EDT [facility] ([facility]) Stephane Lara MD: [address] [place] [address], Ph. Attender: Stephane Lara MD [facility] 10/25/2020 12:00:00 AM EDT [facility] ([facility]) Outpatient Attender: Sergio Lawson NP [facility] 10/20/2020 01:00:00 AM EDT - 10/20/2020 01:00:00 AM EDT [facility]) Attender: Sergio Lawson NP 10/20/2020 12:00:00 AM EDT [facility] ([facility]) Outpatient Attender: Sergio Lawson NP [facility] 08/25/2020 02:00:00 AM EST - 08/25/2020 02:00:00 AM EST [facility] ([facility]) Attender: Sergio Lawson NP 08/25/2020 12:00:00 AM EST [facility] ([facility]) Attender: Sergio Lawson NP 08/25/2020 12:00:00 AM EST [facility] ([facility]) Outpatient Attender: Sergio Lawson NP [facility] 07/28/2020 10:00:00 AM EST - 07/28/2020 10:00:00 AM EST [facility] ([facility]) Attender: Sergio Lawson NP 07/28/2020 12:00:00 AM EST [facility] ([facility]) Outpatient Attender: STEPHANE GARCIA MD [facility] 06/21/2020 01:00:00 AM EST - 06/21/2020 01:00:00 AM EST [facility] ([facility]) Attender: STEPHANE GARCIA MD 06/21/2020 12:00:00 A M EST [facility] ([facility]) Functional Status Immunizations Vaccine Date Status Description Data Source(s) Tdap 12/17/2020 11:41:00 AM EDT completed 12/17/2020 0.5 mL [facility] ([facility]) Tdap 12/17/2020 11:41:00 AM EDT completed 12/17/2020 0.5 mL [facility] ([facility]) COVID-19 VACCINE Meredith 11/30/2020 12:00:00 AM EDT completed [place] Vaccine Series Complete: YESThis Data wa s Submitted to [facility] Via [employer]. Medications Medication Brand Name Start Date Product Form Dose Route Admi nistrative Instructions Pharmacy Instructions Status Indications Reaction Description Data Source(s) Clenpiq Clenpiq 02/16/2021 12:00:00 AM EDT active [facility] ([facility], ) POLYETHYLENE GLYCOL 3350 59 MG/ML / Pota ssium Chloride 0.01 MEQ/ML / Sodium Bicarbonate 0.02 MEQ/ML / Sodium Chloride 0.025 MEQ/ML / sodium sulfate 0.04 MEQ/ML Oral Solution [Gaviltye-G] Gavilyte-G 02/16/2021 12:00:00 AM EDT active [facility] ([facility], ) Bisacodyl 5 MG Delayed Release Oral Tablet [Dulcolax] Dulcol ax 02/16/2021 12:00:00 AM EDT active M [facility] ([facility], ) quetiapine 100 MG Oral Tablet quetiapine 01/21/2021 12:00:00 AM EDT 100 mg completed <td ID="Medicat ionRxNorm_4">177054</td><td ID="MedicationMedication_4">quetiapine</td><td ID="MedicationRoute_4"></td><td ID="MedicationRouteConcept_4"></td><td ID="MedicationStartDate_4">01/21/2021</td><td ID="MedicationStopDate_4">06/13/2021</td><td ID="MedicationDosageFrequency_4"></td><td ID="MedicationDuration_4">30</td><td ID="MedicationFormulaStrength_4">100 mg</td><td ID="MedicationDosageForm_4">tablet</td><td ID="MedicationDosageFormCode_4"></td><td ID="MedicationDosageDescription_4"></td><td ID="MedicationMedicationId_4">[id number]</td><td ID="MedicationAccount_4">[id number]</td><td ID="MedicationNpid_4">[id number]</td><td ID="MedicationAuthorFirstName_4">Sergio</td><td ID="MedicationAuthorLastName_4">Lawson</td><td ID="MedicationTaxonomyCode_4">[id number]</td><td ID="MedicationTaxonomyDesc_4">Nurse Practitioner</td><td ID="MedicationPhoneNumber_4">[phone]</td> [facility] gabapentin 800 MG Oral Tablet Gabapentin 12/08/2020 12:00:00 AM EDT ORAL active [facility] ([facility]) quetiapine 100 MG Oral Tablet quetiapine 10/05/2020 12:00:00 AM EDT 100 mg completed <td ID="Medicat ionRxNorm_5">652210</td><td ID="MedicationMedication_5">quetiapine</td><td ID="MedicationRoute_5"></td><td ID="MedicationRouteConcept_5"></td><td ID="MedicationStartDate_5">10/05/2020</td><td ID="MedicationStopDate_5">11/04/2020</td><td ID="MedicationDosageFrequency_5"></td><td ID="MedicationDuration_5">30</td><td ID="MedicationFormulaStrength_5">100 mg</td><td ID="MedicationDosageForm_5">tablet</td><td ID="MedicationDosageFormCode_5"></td><td ID="MedicationDosageDescription_5"></td><td ID="MedicationMedicationId_5">[id number]</td><td ID="MedicationAccount_5">[id number]</td><td ID="MedicationNpid_5">[id number]</td><td ID="MedicationAuthorFirstName_5">Sergio</td><td ID="MedicationAuthorLastName_5">Lawson</td><td ID="MedicationTaxonomyCode_5">[id number]</td><td ID="MedicationTaxonomyDesc_5">Nurse Practitioner</td><td ID="MedicationPhoneNumber_5">[phone]</td> [facility]) quetiapine 400 MG Oral Tablet quetiapine 09/27/2020 12:00:00 AM EDT 400 mg completed <td ID="Medicat ionRxNorm_3">795149</td><td ID="MedicationMedication_3">quetiapine</td><td ID="MedicationRoute_3"></td><td ID="MedicationRouteConcept_3"></td><td ID="MedicationStartDate_3">09/27/2020</td><td ID="MedicationStopDate_3">06/07/2021</td><td ID="MedicationDosageFrequency_3"></td><td ID="MedicationDuration_3">28</td><td ID="MedicationFormulaStrength_3">400 mg</td><td ID="MedicationDosageForm_3">tablet</td><td ID="MedicationDosageFormCode_3"></td><td ID="MedicationDosageDescription_3"></td><td ID="MedicationMedicationId_3">[id number]</td><td ID="MedicationAccount_3">[id number]</td><td ID="MedicationNpid_3">[id number]</td><td ID="MedicationAuthorFirstName_3">Sergio</td><td ID="MedicationAuthorLastName_3">Lawson</td><td ID="MedicationTaxonomyCode_3">[id number]</td><td ID="MedicationTaxonomyDesc_3">Nurse Practitioner</td><td ID="MedicationPhoneNumber_3">[phone]</td> [facility] ([facility]) buspirone hydrochloride 10 MG Oral Tablet buspirone 2020 12:00:00 AM EDT 10 mg completed <td ID="Medica tionRxNorm_3">682345</td><td ID="MedicationMedication_3">buspirone</td><td ID="MedicationRoute_3"></td><td ID="MedicationRouteConcept_3"></td><td ID="MedicationStartDate_3">09/27/2020</td><td ID="MedicationStopDate_3"></td><td ID="MedicationDosageFrequency_3"></td><td ID="MedicationDuration_3">28</td><td ID="MedicationFormulaStrength_3">10 mg</td><td ID="MedicationDosageForm_3">tablet</td><td ID="MedicationDosageFormCode_3"></td><td ID="MedicationDosageDescription_3"></td><td ID="MedicationMedicationId_3">[id number]</td><td ID="MedicationAccount_3">[id number]</td><td ID="MedicationNpid_3">[id number]</td><td ID="MedicationAuthorFirstName_3">Sergio</td><td ID="MedicationAuthorLastName_3">Lawson</td><td ID="MedicationTaxonomyCode_3">[id number]</td><td ID="MedicationTaxonomyDesc_3">Nurse Practitioner</td><td ID="MedicationPhoneNumber_3">[phone]</td> [facility]) Trazodone Hydrochloride 50 MG Oral Tablet trazodone 2020 12:00:00 AM EDT 50 mg completed <td ID="Medica tionRxNorm_2">[id number]</td><td ID="MedicationMedication_2">trazodone</td><td ID="MedicationRoute_2"></td><td ID="MedicationRouteConcept_2"></td><td ID="MedicationStartDate_2">09/27/2020</td><td ID="MedicationStopDate_2"></td><td ID="MedicationDosageFrequency_2"></td><td ID="MedicationDuration_2">28</td><td ID="MedicationFormulaStrength_2">50 mg</td><td ID="MedicationDosageForm_2">tablet</td><td ID="MedicationDosageFormCode_2"></td><td ID="MedicationDosageDescription_2"></td><td ID="MedicationMedicationId_2">[id number]</td><td ID="MedicationAccount_2">[id number]</td><td ID="MedicationNpid_2">[id number]</td><td ID="MedicationAuthorFirstName_2">Sergio</td><td ID="MedicationAuthorLastName_2">Lawson</td><td ID="MedicationTaxonomyCode_2">[id number]</td><td ID="MedicationTaxonomyDesc_2">Nurse Practitioner</td><td ID="MedicationPhoneNumber_2">[phone]</td> [facility] ([facility]) buspirone hydrochloride 10 MG Oral Tablet buspirone 2020 12:00:00 AM EDT 10 mg completed <td ID="Medica tionRxNorm_2">347669</td><td ID="MedicationMedication_2">buspirone</td><td ID="MedicationRoute_2"></td><td ID="MedicationRouteConcept_2"></td><td ID="MedicationStartDate_2">09/27/2020</td><td ID="MedicationStopDate_2">06/07/2021</td><td ID="MedicationDosageFrequency_2"></td><td ID="MedicationDuration_2">28</td><td ID="MedicationFormulaStrength_2">10 mg</td><td ID="MedicationDosageForm_2">tablet</td><td ID="MedicationDosageFormCode_2"></td><td ID="MedicationDosageDescription_2"></td><td ID="MedicationMedicationId_2">[id number]</td><td ID="MedicationAccount_2">[id number]</td><td ID="MedicationNpid_2">[id number]</td><td ID="MedicationAuthorFirstName_2">Sergio</td><td ID="MedicationAuthorLastName_2">Lawson</td><td ID="MedicationTaxonomyCode_2">[id number]</td><td ID="MedicationTaxonomyDesc_2">Nurse Practitioner</td><td ID="MedicationPhoneNumber_2">[phone]</td> [facility] ([facility]) Trazodone Hydrochloride 50 MG Oral Tablet trazodone 2019 12:00:00 AM EST 50 mg completed <td ID="Medica tionRxNorm_3">248188</td><td ID="MedicationMedication_3">trazodone</td><td ID="MedicationRoute_3"></td><td ID="MedicationRouteConcept_3"></td><td ID="MedicationStartDate_3">07/06/2020</td><td ID="MedicationStopDate_3"></td><td ID="MedicationDosageFrequency_3"></td><td ID="MedicationDuration_3"></td><td ID="MedicationFormulaStrength_3">50 mg</td><td ID="MedicationDosageForm_3">tablet</td><td ID="MedicationDosageFormCode_3"></td><td ID="MedicationDosageDescription_3"></td><td ID="MedicationMedicationId_3">[id number]</td><td ID="MedicationAccount_3">[id number]</td><td ID="MedicationNpid_3">[id number]</td><td ID="MedicationAuthorFirstName_3">Sergio</td><td ID="MedicationAuthorLastName_3">Lawson</td><td ID="MedicationTaxonomyCode_3">[id number]</td><td ID="MedicationTaxonomyDesc_3">Nurse Practitioner</td><td ID="MedicationPhoneNumber_3">[phone]</td> [facility] ([facility]) quetiapine 400 MG Oral Tablet [Seroquel] Seroquel 07/06/2020 12 :00:00 AM EST 400 mg completed <td ID="Me dicationRxNorm_5">135907</td><td ID="MedicationMedication_5">Seroquel</td><td ID="MedicationRoute_5"></td><td ID="MedicationRouteConcept_5"></td><td ID="MedicationStartDate_5">07/06/2020</td><td ID="MedicationStopDate_5">09/10/2020</td><td ID="MedicationDosageFrequency_5"></td><td ID="MedicationDuration_5">30</td><td ID="MedicationFormulaStrength_5">400 mg</td><td ID="MedicationDosageForm_5">tablet</td><td ID="MedicationDosageFormCode_5"></td><td ID="MedicationDosageDescription_5"></td><td ID="MedicationMedicationId_5">[id number]</td><td ID="MedicationAccount_5">[id number]</td><td ID="MedicationNpid_5">[id number]</td><td ID="MedicationAuthorFirstName_5">Sergio</td><td ID="MedicationAuthorLastName_5">Lawson</td><td ID="MedicationTaxonomyCode_5">[id number]</td><td ID="MedicationTaxonomyDesc_5">Nurse Practitioner</td><td ID="MedicationPhoneNumber_5">[phone]</td> [facility] ([facility]) duloxetine 60 MG Delayed Release Oral Capsule duloxetine 05/17/2020 12:00:00 AM EST 60 mg by mouth completed <td ID="MedicationRxNorm_1">155223</td><td ID="MedicationMedication_1">duloxetine</td><td ID="MedicationRoute_1">by mouth</td><td ID="MedicationRouteConcept_1">R38225</td><td ID="MedicationStartDate_1">05/17/2020</td><td ID="MedicationStopDate_1"></td><td ID="MedicationDosageFrequency_1">twice a day</td><td ID="MedicationDuration_1"></td><td ID="MedicationFormulaStrength_1">60 mg</td><td ID="MedicationDosageForm_1">capsule,delayed release(DR/EC)</td><td ID="MedicationDosageFormCode_1"></td><td ID="MedicationDosageDescription_1"></td><td ID="MedicationMedicationId_1">[id number]</td><td ID="MedicationAccount_1">[id number]</td><td ID="MedicationNpid_1">[id number]</td><td ID="MedicationAuthorFirstName_1">Sergio</td><td ID="MedicationAuthorLastName_1">Lawson</td><td ID="MedicationTaxonomyCode_1">[id number]</td><td ID="MedicationTaxonomyDesc_1"> Nurse Practitioner</td><td ID="MedicationPhoneNumber_1">[phone]</td> [facility] ([facility]) duloxetine 60 MG Delayed Release Oral Capsule duloxetine 05/17/2020 12:00:00 AM EST 60 mg by mouth completed <td ID="MedicationRxNorm_3">035872</td><td ID="MedicationMedication_3">duloxetine</td><td ID="MedicationRoute_3">by mouth</td><td ID="MedicationRouteConcept_3">M84895</td><td ID="MedicationStartDate_3">05/17/2020</td><td ID="MedicationStopDate_3"></td><td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 Document(s) Red Blood Count 5.33 10 4.30-6.10 Normal (applies to non-numeric results) [facility]) Hemoglobin 15.6 g/dL 13.5-17.5 Normal (applies to non-numeric resul ts) [facility]) White Blood Count 9.6 10 4.0-10.0 Normal (applies to non-numeri c results) [facility]) Hematocrit 46.5 % 42.0-52.0 Normal (applies to non-numeric resul ts) [facility]) Mean Corpuscular Volume 87.2 fl 80.0-96.0 Normal ( applies to non-numeric results) [facility]) Mean Corpuscular HGB Conc 33.5 g/dL 32.0-36.5 Normal (applies to non-numeric results) [facility]) Mean Corpuscular Hemoglobin 29.3 pg 27.0-33.0 Norm al (applies to non-numeric results) [facility]) Red Cell Distribution Width 12.9 % 11.5-14.5 Norm al (applies to non-numeric results) [facility]) Platelet Count, Automated 278 10 150-450 Normal (applies to non-numeric results) [facility]) Neutrophils % 44.3 % 36.0-66.0 Normal (applies to non-numeric re sults) [facility]) Lymph % 42.3 % 24.0-44.0 Normal (applies to non-numeric resul ts) [facility] ([facility]) [place] % 9.3 % 2.0-8.0 Above high normal [facility] ([facility]) Eos % 2.6 % 0.0-3.0 Normal (applies to non-numeric resul ts) [facility] ([facility]) Baso % 0.7 % 0.0-1.0 Normal (applies to non-numeric resul ts) [facility] ([facility]) Immature Granulocyte % 0.8 % 0-3.0 Normal (applies to non-n umeric results) [facility] ([facility]) Nucleated Red Blood Cell % 0.0 % 0-0 Normal (applies to n on-numeric results) [facility] ([facility]) Neutrophils # 4.3 10 1.5-8.5 Normal (applies to non-numeric re sults) [facility] ([facility]) Lymph # 4.1 10 1.5-5.0 Normal (applies to non-numeric resul ts) [facility] ([facility]) [place] # 0.9 10 0.0-0.8 Above high normal [facility] ([facility]) Eos # 0.3 10 0.0-0.5 Normal (applies to non-numeric resul ts) [facility] ([facility]) Baso # 0.1 10 0.0-0.2 Normal (applies to non-numeric resul ts) [facility] ([facility]) ID Date Data Source [id number] 12/07/2020 09:16:00 AM EDT [facility] ([facility]) Name Value Range Interpretation Code Description Data Christen rce(s) Supporting Document(s) Glucose [Mass/volume] in Serum or Plasma 103 mg/dL 65-99 Above high normal Glucose [facility] ([facility]) Urea nitrogen [Mass/volume] in Serum or Plasma 10 mg/dL 7-25 Urea Nitrogen (BUN) [facility] ([facility]) Glomerular filtration rate/1.73 sq M.pre dicted among non-blacks [Volume Rate/Area] in Serum, Plasma or Blood by Creatinine-based formula (CKD-EPI) 94 mL/min/1.73m2 > or = 60 eGFR Non-afr. [place] [facility] ([facility]) Creatinine [Mass/volume] in Serum or Plasma 1.02 mg/dL 0.60-1.35 Creatinine [facility] ([facility]) Glomerular filtration rate/1.73 sq M.pre dicted among blacks [Volume Rate/Area] in Serum, Plasma or Blood by Creatinine-based formula (CKD-EPI) 109 mL/min/1.73m2 > or = 60 eGFR [facility] ([facility]) Urea nitrogen/Creatinine [Mass Ratio] in Serum or Plasma not applic able 6-22 BUN/creatinine Ratio [facility] ([facility]) Sodium [Moles/volume] in Serum or Plasma 141 mmol/L 135-146 Sodium [facility] ([facility]) Chloride [Moles/volume] in Serum or Plasma 108 mmol/L 98-110 Chloride [facility] ([facility]) Potassium [Moles/volume] in Serum or Plasma 4.0 mmol/L 3.5-5.3 Potassium [facility] ([facility]) Carbon dioxide, total [Moles/volume] in Serum or Plasma 24 mmol/L 20-32 Carbon Dioxide [facility] ([facility]) Protein [Mass/volume] in Serum or Plasma 6.6 g/dL 6.1-8.1 Protein, Total [facility] ([facility]) Calcium [Mass/volume] in Serum or Plasma 9.0 mg/dL 8.6-10.3 Calcium [facility] ([facility]) Globulin [Mass/volume] in Serum by calculation 2.2 g/dL_(calc) 1.9- 3.7 Globulin [facility] ([facility]) Albumin [Mass/volume] in Serum or Plasma 4.4 g/dL 3.6-5.1 Albumin [facility] ([facility]) Albumin/Globulin [Mass Ratio] in Serum or Plasma 2.0 (calc) 1.0-2 .5 Albumin/globulin Ratio [facility] ([facility]) Aspartate aminotransferase [Enzymatic activity/volume] in Serum or Plasma 31 U/L 10-40 Ast [facility] ([facility]) Bilirubin.total [Mass/volume] in Serum or Plasma 0.3 mg/dL 0.2-1 .2 Bilirubin, Total [facility] ([facility]) Alanine aminotransferase [Enzymatic activity/volume] in Seru m or Plasma 46 U/L 9-46 Alt [facility] ([facility]) Alkaline phosphatase [Enzymatic activity/volume] in Serum or Plasma 109 U/L 36-130 Alkaline Phosphatase [facility] ([facility]) ID Date Data Source [id number] 12/07/2020 09:16:00 AM EDT [facility] ([facility]) Name Value Range Interpretation Code Description Data Christen rce(s) Supporting Document(s) Triiodothyronine resin uptake (T3RU) in Serum or Plasma 27 % 22 -35 T3 Uptake [facility] ([facility]) Thyrotropin [Units/volume] in Serum or Plasma 0.81 mIU/L 0.40-4.50 Tsh [facility] ([facility]) Thyroxine (T4) [Mass/volume] in Serum or Plasma 5.7 mcg/dL 4.9-10 .5 T4 (Thyroxine), Total [facility] ([facility]) Thyroxine (T4) free index in Serum or Plasma by calculation 1.4-3.8 Free T4 Index (T7) [facility]) ID Date Data Source [id number] 12/07/2020 09:16:00 AM EDT [facility] ([facility]) Name Value Range Interpretation Code Description Data Christen rce(s) Supporting Document(s) Triglyceride [Mass/volume] in Serum or Plasma 251 mg/dL <150 Above high normal Triglycerides [facility] ([facility]) Cholesterol [Mass/volume] in Serum or Plasma 200 mg/dL <200 Above high normal Cholesterol, Total [facility] ([facility]) Cholesterol non HDL [Mass/volume] in Serum or Plasma 162 mg/dL_( calc) <130 Above high normal Non [facility] Cholesterol in LDL [Mass/volume] in Serum or Plasma by calculation 123 mg/dL_(calc) Above high normal LDL-cholesterol [facility] ([facility]) Cholesterol in HDL [Mass/volume] in Serum or Plasma 38 mg/dL > or = 40 Below low normal HDL Cholesterol [facility] ([facility]) Cholesterol.total/Cholesterol in HDL [Mass Ratio] in Serum o r Plasma 5.3 (calc) <5.0 Above high normal Chol/hdlc Ratio [facility] ([facility]) ID Date Data Source [id number] 12/07/2020 09:16:00 AM EDT [facility] ([facility]) Name Value Range Interpretation Code Description Data Christen rce(s) Supporting Document(s) Glucose [Mass/volume] in Serum or Plasma 103 mg/dL 65-99 Above high normal Glucose [facility] ([facility]) Glomerular filtration rate/1.73 sq M.pre dicted among blacks [Volume Rate/Area] in Serum, Plasma or Blood by Creatinine-based formula (CKD-EPI) 109 mL/min/1.73m2 > or = 60 eGFR [facility] (No [facility]) Urea nitrogen [Mass/volume] in Serum or Plasma 10 mg/dL 7-25 Urea Nitrogen (BUN) [facility] ([facility]) Glomerular filtration rate/1.73 sq M.pre dicted among non-blacks [Volume Rate/Area] in Serum, Plasma or Blood by Creatinine-based formula (CKD-EPI) 94 mL/min/1.73m2 > or = 60 eGFR Non-afr. [place] [facility] ([facility]) Creatinine [Mass/volume] in Serum or Plasma 1.02 mg/dL 0.60-1.35 Creatinine [facility] ([facility]) Carbon dioxide, total [Moles/volume] in Serum or Plasma 24 mmol/L 20-32 Carbon Dioxide [facility] ([facility]) Urea nitrogen/Creatinine [Mass Ratio] in Serum or Plasma not applic able 6-22 BUN/creatinine Ratio [facility] ([facility]) Chloride [Moles/volume] in Serum or Plasma 108 mmol/L 98-110 Chloride [facility] ([facility]) Sodium [Moles/volume] in Serum or Plasma 141 mmol/L 135-146 Sodium [facility] ([facility]) Potassium [Moles/volume] in Serum or Plasma 4.0 mmol/L 3.5-5.3 Potassium [facility] ([facility]) Albumin [Mass/volume] in Serum or Plasma 4.4 g/dL 3.6-5.1 Albumin [facility] ([facility]) Calcium [Mass/volume] in Serum or Plasma 9.0 mg/dL 8.6-10.3 Calcium [facility] ([facility]) Globulin [Mass/volume] in Serum by calculation 2.2 g/dL_(calc) 1.9- 3.7 Globulin [facility] ([facility]) Protein [Mass/volume] in Serum or Plasma 6.6 g/dL 6.1-8.1 Protein, Total [facility]) Bilirubin.total [Mass/volume] in Serum or Plasma 0.3 mg/dL 0.2-1 .2 Bilirubin, Total [facility] ([facility]) Alkaline phosphatase [Enzymatic activity/volume] in Serum or Plasma 109 U/L 36-130 Alkaline Phosphatase [facility] ([facility]) Albumin/Globulin [Mass Ratio] in Serum or Plasma 2.0 (calc) 1.0-2 .5 Albumin/globulin Ratio [facility] ([facility]) Aspartate aminotransferase [Enzymatic activity/volume] in Serum or Plasma 31 U/L 10-40 Ast [facility] ([facility]) Alanine aminotransferase [Enzymatic activity/volume] in Seru m or Plasma 46 U/L 9-46 Alt [facility] ([facility]) ID Date Data Source [id number] 12/07/2020 09:16:00 AM EDT [facility] ([facility]) Name Value Range Interpretation Code Description Data Christen rce(s) Supporting Document(s) Triiodothyronine resin uptake (T3RU) in Serum or Plasma 27 % 22 -35 T3 Uptake [facility] ([facility]) Thyroxine (T4) [Mass/volume] in Serum or Plasma 5.7 mcg/dL 4.9-10 .5 T4 (Thyroxine), Total [facility]) Thyroxine (T4) free index in Serum or Plasma by calculation 1.4-3.8 Free T4 Index (T7) [facility] ([facility]) Thyrotropin [Units/volume] in Serum or Plasma 0.81 mIU/L 0.40-4.50 Tsh [facility] ([facility]) ID Date Data Source [id number] 12/07/2020 09:16:00 AM EDT [facility] ([facility]) Name Value Range Interpretation Code Description Data Christen rce(s) Supporting Document(s) Triglyceride [Mass/volume] in Serum or Plasma 251 mg/dL <150 Above high normal Triglycerides [facility] ([facility]) Cholesterol in LDL [Mass/volume] in Serum or Plasma by calculation 123 mg/dL_(calc) Above high normal LDL-cholesterol [facility] ([facility]) Cholesterol in HDL [Mass/volume] in Serum or Plasma 38 mg/dL > or = 40 Below low normal HDL Cholesterol [facility] ([facility]) Cholesterol.total/Cholesterol in HDL [Mass Ratio] in Serum o r Plasma 5.3 (calc) <5.0 Above high normal Chol/hdlc Ratio [facility] ([facility]) Cholesterol [Mass/volume] in Serum or Plasma 200 mg/dL <200 Above high normal Cholesterol, Total [facility] ([facility]) Cholesterol non HDL [Mass/volume] in Serum or Plasma 162 mg/dL_( calc) <130 Above high normal Non HDL Cholesterol [facility] ([facility]) Procedure Social History Code Duration Value Status Description Data Source(s ) Smoking 04/19/2021 12:00:00 AM EDT Current every day smoker co mpleted Current every day smoker [facility] ([facility]) Smoking 12/22/2020 12:00:00 AM EDT Current every day smoker co mpleted Current every day smoker [facility] ([facility]) Smoking 10/20/2020 12:00:00 AM EDT Current every day smoker co mpleted Current every day smoker [facility] ([facility]) Smoking 08/25/2020 12:00:00 AM EST Current every day smoker co mpleted Current every day smoker [facility] ([facility]) Smoking 07/28/2020 12:00:00 AM EST Current every day smoker co mpleted Current every day smoker [facility] ([facility]) Smoking 06/21/2020 12:00:00 AM EST Current every day smoker co mpleted Current every day smoker [facility] ([facility]) Vital Signs ID Date Data Source [id number] Name Value Range Interpretation Code Description Data Source(s) Systolic blood pressure 118 mm[Hg] 118 mm[Hg] M [facility] ([facility]) Diastolic blood pressure 70 mm[Hg] 70 mm[Hg] [facility] ([facility]) Body height 67 [in_i] 67 [in_i] [facility] ([facility]) 5'7" Body weight 230.00 [lb_av] 230.00 [facility]_av] [facility] Body mass index (BMI) [Ratio] 36.0 kg/m2 36.0 k g/m2 [facility] ([facility]) [place] body weight 148 [lb_av] 148 [lb_av] [facility] Body weight 104.328 kg 104.328 kg [facility] ([facility]) Body surface area Derived from formula 2.15 m2 2.15 m2 [facility] ([facility]) Diastolic blood pressure 87 mm[Hg] 87 mm[Hg] [facility] ([facility]) Body height 68 [in_i] 68 [in_i] [facility] ([facility]) Body mass index (BMI) [Ratio] 36.2 kg/m2 36.2 k g/m2 [facility] ([facility]) Systolic blood pressure 133 mm[Hg] 133 mm[Hg] A THENA ([facility]) Body weight 3808 [oz_av] 3808 [oz_av] [facility] ([facility]) Diastolic blood pressure 87 mm[Hg] 87 mm[Hg] [facility] ([facility]) Body height 68 [in_i] 68 [in_i] [facility] ([facility]) Body mass index (BMI) [Ratio] 36.2 kg/m2 36.2 k g/m2 [facility] ([facility]) Systolic blood pressure 133 mm[Hg] 133 mm[Hg] [facility] Body weight 3808 [oz_av] 3808 [oz_av] [facility] ([facility]) Body height 68 [in_i] 68 [in_i] [facility] ([facility]) Body height 68 [in_i] 68 [in_i] [facility] ([facility]) Diastolic blood pressure 79 mm[Hg] 79 mm[Hg] [facility] ([facility]) Body height 68 [in_i] 68 [in_i] [facility] ([facility]) Body mass index (BMI) [Ratio] 39 kg/m2 39 kg/ m2 [facility] ([facility]) Systolic blood pressure 126 mm[Hg] 126 mm[Hg] [facility]) Body weight 4100 [oz_av] 4100 [oz_av] [facility] ([facility]) Diastolic blood pressure 79 mm[Hg] 79 mm[Hg] [facility] ([facility]) Body height 68 [in_i] 68 [in_i] [facility] ([facility]) Body mass index (BMI) [Ratio] 39 kg/m2 39 kg/ m2 [facility] ([facility]) Systolic blood pressure 126 mm[Hg] 126 mm[Hg] [facility]) Body weight 4100 [oz_av] 4100 [oz_av] [facility] ([facility]) Diastolic blood pressure 79 mm[Hg] 79 mm[Hg] [facility] ([facility]) Body height 68 [in_i] 68 [in_i] [facility] ([facility]) Body mass index (BMI) [Ratio] 39 kg/m2 39 kg/ m2 [facility] ([facility]) Systolic blood pressure 126 mm[Hg] 126 mm[Hg] [facility]) Body weight 4100 [oz_av] 4100 [oz_av] [facility] ([facility]) Systolic blood pressure 0 mm[Hg] Normal (applies t o non-numeric results) 0 mm[Hg] [facility] ([facility] Body height 0.00 in Normal (applies to non-numeric resu lts) 0.00 in [facility] ([facility]) Body weight Measured 0.00 lbs Normal (applies to n on-numeric results) 0.00 lbs [facility] ([facility]) Body mass index (BMI) [Ratio] 0.00 kg/m2 No rmal (applies to non-numeric results) 0.00 kg/m2 [facility] ([facility]) Diastolic blood pressure 0 mm[Hg] Normal (applies to non-numeric results) 0 mm[Hg] [facility] ([facility]) Body height 0.00 in Normal (applies to non-numeric resu lts) 0.00 in [facility] ([facility]) Body weight Measured 0.00 lbs Normal (applies to n on-numeric results) 0.00 lbs [facility] ([facility]) Body mass index (BMI) [Ratio] 0.00 kg/m2 No rmal (applies to non-numeric results) 0.00 kg/m2 [facility] ([facility]) Systolic blood pressure 0 mm[Hg] Normal (applies t o non-numeric results) 0 mm[Hg] [facility]) Diastolic blood pressure 0 mm[Hg] Normal (applies to non-numeric results) 0 mm[Hg] [facility] ([facility]) Body height 0.00 in Normal (applies to non-numeric resu lts) 0.00 in [facility] ([facility]) Body weight Measured 0.00 lbs Normal (applies to n on-numeric results) 0.00 lbs [facility] ([facility]) Body mass index (BMI) [Ratio] 0.00 kg/m2 No rmal (applies to non-numeric results) 0.00 kg/m2 [facility] ([facility]) Systolic blood pressure 0 mm[Hg] Normal (applies t o non-numeric results) 0 mm[Hg] [facility] ([facility]) Diastolic blood pressure 0 mm[Hg] Normal (applies to non-numeric results) 0 mm[Hg] [facility] ([facility]) Patient Treatment Plan of Care Planned Activity Planned Date Details Description Data Source (s) vitamin B complex [facility] ([facility]) Trazodone Hydrochloride 50 MG Oral Tablet [facility] ([facility]) tramadol hydrochloride 50 MG Oral Tablet [facility] ([facility]) Sucralfate 1000 MG Oral Tablet [facility] ([facility]) quetiapine 100 MG Oral Tablet [facility] ([facility]) Promethazine Hydrochloride 25 MG Oral Tablet [facility] ([facility]) meloxicam 15 MG Oral Tablet [facility] ([facility]) Hydroxyzine Hydrochloride 50 MG Oral Tablet [facility] ([facility]) gabapentin 600 MG Oral Tablet [facility] ([facility]) duloxetine 30 MG Delayed Release Oral Capsule [facility] ([facility]) vitamin B complex [facility] ([facility]) Trazodone Hydrochloride 50 MG Oral Tablet [facility] ([facility]) tramadol hydrochloride 50 MG Oral Tablet [facility] ([facility]) Sucralfate 1000 MG Oral Tablet [facility] ([facility]) quetiapine 100 MG Oral Tablet [facility] ([facility]) Promethazine Hydrochloride 25 MG Oral Tablet [facility] ([facility]) meloxicam 15 MG Oral Tablet [facility] ([facility]) Hydroxyzine Hydrochloride 50 MG Oral Tablet [facility] ([facility]) gabapentin 600 MG Oral Tablet [facility] ([facility]) duloxetine 30 MG Delayed Release Oral Capsule [facility] ([facility]) Trazodone Hydrochloride 50 MG Oral Tablet [facility] ([facility]) tramadol hydrochloride 50 MG Oral Tablet [facility] ([facility]) Sucralfate 1000 MG Oral Tablet [facility] [facility] quetiapine 100 MG Oral Tablet DARREN ([facility]) Promethazine Hydrochloride 25 MG Oral Tablet DARREN ([facility]) Hydroxyzine Hydrochloride 50 MG Oral Tablet DARREN ([facility]) duloxetine 30 MG Delayed Release Oral Capsule DARREN ([facility])
[2021-04-26] MEDS ORDERED: KETOROLAC TROMETHAMINE 10 MG TAB PO ONE (01:10)
[2021-04-26] MEDS ORDERED: methocarbamoL 500 MG TAB PO ONE (01:15)
--- NOTE | 2021-04-26 01:17 | ECGEPIP ---
[facility] - ED Test Date: 2021-04-25 Pat Name: LEXII LOWE Department: Room: - Gender: Male Sheriff: PANCHO : 1985 Requested By: DAVID Gomez Order Number: [id number] Reading MD: David Starks Measurements Intervals Koppel Rate: 105 P: 29 MN: 132 QRS: 5 QRSD: 84 T: 31 QT: 346 QTc: 457 Interpretive Statements Sinus tachycardia Nonspecific T wave abnormality Similar to tracing done 03-06-21 Electronically Signed on 04-26-2021 1:17:00 EDT by David Starks
[2021-04-26 01:31] LABS: BASO % 0.4 % (0.0-1.0); EOS # 0.3 10^3/uL (0.0-0.5); HEMOGLOBIN 14.5 g/dl (13.5-17.5); LYMPH # 3.9 10^3/uL (1.5-5.0); LYMPH % 41.4 % (24.0-44.0); MEAN CORPUSCULAR HEMOGLOBIN 30.1 pg (27.0-33.0); MEAN CORPUSCULAR HGB CONC 34.5 g/dl (32.0-36.5); MEAN CORPUSCULAR VOLUME 87.1 fl (80.0-96.0); MONO # 0.8 10^3/uL (0.0-0.8); MONO % 8.5 % (2.0-8.0); NEUTROPHILS # 4.3 10^3/uL (1.5-8.5); NEUTROPHILS % 46.3 % (36.0-66.0); PLATELET COUNT, AUTOMATED 247 10^3/uL (150-450); RED BLOOD COUNT 4.82 10^6/uL (4.30-6.10); WHITE BLOOD COUNT 9.4 10^3/uL (4.0-10.0)
[2021-04-26 02:06] LABS: BLOOD UREA NITROGEN 11 MG/DL (7-18); CARBON DIOXIDE LEVEL 28 MEQ/L (21-32); CHLORIDE LEVEL 112 MEQ/L (98-107); CREATININE FOR GFR 0.94 MG/DL (0.70-1.30); GLOMERULAR FILTRATION RATE > 60.0 (>60); GLUCOSE, FASTING 89 MG/DL (70-100); POTASSIUM SERUM 3.9 MEQ/L (3.5-5.1); SODIUM LEVEL 144 MEQ/L (136-145)
[2021-04-26 02:07] LABS: ALBUMIN 3.6 GM/DL (3.2-5.2); ALT/SGPT 48 U/L (12-78); BILIRUBIN,DIRECT < 0.1 MG/DL (0.0-0.2); BILIRUBIN,TOTAL 0.3 MG/DL (0.2-1.0); CALCIUM LEVEL 8.8 MG/DL (8.5-10.1); CK-MB VALUE MASS 2.3 NG/ML (<3.6); CPK CREATINE PHOSPHOKINASE 162 U/L (39-308); LIPASE 150 U/L (73-393); MB/CK RELATIVE INDEX 1.42 (< OR =4); TOTAL PROTEIN 6.7 GM/DL (6.4-8.2); TROPONIN I < 0.02 NG/ML (< 0.10)
[2021-04-26 02:36] VITALS: BP 128/69
--- NOTE | 2021-04-26 02:36 | REPVR ---
PROCEDURE INFORMATION: Exam: XR Chest Exam date and time: 04/26/2021 1:14 AM Age: 35 years old Clinical indication: Chest pain TECHNIQUE: Imaging protocol: XR of the chest. Views: 2 views. COMPARISON: CR Chest, 2 view PA, Lat 03/05/2021 11:44 PM FINDINGS: Lungs: Unremarkable. No consolidation. No pulmonary edema. Pleural spaces: Unremarkable. No pleural effusion. No pneumothorax. Heart/Mediastinum: Unremarkable. No cardiomegaly. Bones/joints: Unremarkable. IMPRESSION: No acute findings. Electronically signed by: Elliot Guajardo On 04/26/2021 02:35:36 AM
--- OUTSIDE RECORDS SUMMARY | 2021-04-26 03:00 | CCD ---
Author Author [facility] Organization [facility] Address Unknown Phone Unavailable Care Team Providers Care Candle Molder Name Role Phone Jaquelin Lara MD Unavailable [...] Unavailable Unavailable Jaquelin Lara MD Unavailable Unavailable Jauqelin Lara MD Unavailable Unavailable Jaquelin Lara MD [...] Unavailable Unavailable Franko GARCIA MD Unavailable Unavailable rFanko GARCIA MD Unavailable Unavailable Franko GARCIA MD Unavailable Unavailable Franko GARCIA MD Unavailable Unavailable Franko GARCIA MD Unavailable Unavailable Franko GARCIA MD Unavailable Unavailable Franko GARCIA MD Unavailable Unavailable Franko GARCIA MD Unavailable Unavailable Franko GARCIA MD Unavailable Unavailable Franko GARCIA MD Unavailable Unavailable Margie Lawson COMMERCIAL ENERGY RATER Unavailable Unavailable Margie Lawson COMMERCIAL ENERGY RATER Unavailable Unavailable Margie Lawson COMMERCIAL ENERGY RATER Unavailable Unavailable Jose C CRUZ MD Unavailable [...] is protected by Article 27-F of the [facility] Public Health law. If you continue you may have access to information: Regarding HIV / AIDS; Provided by facilities licensed or operated by the [facility] Office of Mental Health; or Provided by the [facility] Office for People With Developmental Disabilities. If such information is present, then the following [facility] mandated warning applies: This information has [...] law may result in a fine or usp sentence or both. A general authorization for the release of medical or other information is NOT sufficient authorization for further disc losure. Allergies and Adverse Reactions Type Description Substance Reaction Status Data Source(s ) Propensity to adverse reactions to substance Invega Tr inza (paliperidone palm (3-month)) 2.625 ML paliperidone palmitate 312 MG/ML Prefilled Sy ringe [Invega] Active [facility] ([facility]) Family History Family Member Name Family Member Gender Family Member Status Date o f Status Description Data Source(s) Unknown Male Problem [facility] ([facility]) Encounters Encounter Providers Location Date Indications Data Source(s ) Outpatient Attender: Sergio Lawson NP [facility] Det[facility] 04/19/2021 02:30:00 AM EDT - 04/19/2021 02:30:00 AM EDT [facility] ([facility]) Attender: Sergio Lawson NP 04/19/2021 12:00:00 AM EDT [facility] ([facility]) Outpatient Attender: LAITH Castellanos/Joey/Johnny crain/Reinmarita 02/02/2021 11:10:00 AM EDT [facility] ([facility]) Outpatient Attender: Sergio Lawson NP [facility] 12/22/2020 01:00:00 AM EDT - 12/22/2020 01:00:00 AM EDT [facility] ([facility]) Attender: Sergio Lawson COMMERCIAL ENERGY RATER 12/22/2020 12:00:00 AM EDT [facility] ([facility]) Stephane Lara MD: [address] [place] [address], Ph. Attender: Stephane Lara MD [facility] 12/17/2020 12:00:00 AM EDT [facility] ([facility]) Stephane Lara MD: [address] [place] [address], Ph. Attender: Stephane Lara MD [facility] 12/17/2020 12:00:00 AM EDT [facility] ([facility]) Outpatient Attender: Chon Nguyen [facility] 12/08/2020 10:00:0 0 AM EDT [facility] ([facility]) Stephane Lara MD: [address] [place] [address], Ph. Attender: Stephane Lara MD [facility] 12/07/2020 12:00:00 AM EDT [facility] ([facility]) Stephane Lara MD: [address] [place] [address], Ph. Attender: Stephane Lara MD [facility] 12/07/2020 12:00:00 AM EDT [facility] ([facility]) Stephane Lara MD: [address] [place] [address], Ph. Attender: Stephane Lara MD [facility] 10/25/2020 12:00:00 AM EDT [facility] ([facility]) Stephane Lara MD: [address] [place] [address], Ph. Attender: Stephane Lara MD [facility] 10/25/2020 12:00:00 AM EDT [facility] ([facility]) Stephane Lara MD: [address] [place] [address], Ph. Attender: Stephane Lara MD [facility] 10/25/2020 12:00:00 AM EDT [facility] ([facility]) Outpatient Attender: Sergio Lawson NP [facility] 10/20/2020 01:00:00 AM EDT - 10/20/2020 01:00:00 AM EDT [facility] ([facility]) Attender: Sergio Lawson NP 10/20/2020 12:00:00 AM EDT [facility] ([facility]) Outpatient Attender: Sergio Lawson NP [facility] 08/25/2020 02:00:00 AM EST - 08/25/2020 02:00:00 AM EST [facility] ([facility]) Attender: Sergio Lawson NP 08/25/2020 12:00:00 AM EST [facility] ([facility]) Attender: Sergio Lawson NP 08/25/2020 12:00:00 AM EST [facility] ([facility]) Outpatient Attender: Sergio Lawson NP [facility] 07/28/2020 10:00:00 AM EST - 07/28/2020 10:00:00 AM EST [facility] ([facility]) Attender: Sergio Lawson NP 07/28/2020 12:00:00 AM EST [facility] ([facility]) Outpatient Attender: STPEHANE GARCIA MD [facility] 06/21/2020 01:00:00 AM EST - 06/21/2020 01:00:00 AM EST [facility] ([facility]) Attender: STEPHANE GARCIA MD 06/21/2020 12:00:00 A M EST [facility] ([facility]) Functional Status Immunizations Vaccine Date Status Description Data Source(s) Tdap 12/17/2020 11:41:00 AM EDT completed 12/17/2020 0.5 mL [facility] ([facility]) Tdap 12/17/2020 11:41:00 AM EDT completed 12/17/2020 0.5 mL [facility] ([facility]) COVID-19 VACCINE Meredith 11/30/2020 12:00:00 AM EDT completed [facility] Vaccine Series Complete: YESThis Data wa s Submitted to [facility] Via [employer]. Medications Medication Brand Name Start Date Product Form Dose Route Admi nistrative Instructions Pharmacy Instructions Status Indications Reaction Description Data Source(s) Clenpiq Clenpiq 02/16/2021 12:00:00 AM EDT active [facility] ([facility] ) POLYETHYLENE GLYCOL 3350 59 MG/ML / Pota ssium Chloride 0.01 MEQ/ML / Sodium Bicarbonate 0.02 MEQ/ML / Sodium Chloride 0.025 MEQ/ML / sodium sulfate 0.04 MEQ/ML Oral Solution [Gaviltye-G] Gavilyte-G 02/16/2021 12:00:00 AM EDT active [facility] ([facility] ) Bisacodyl 5 MG Delayed Release Oral Tablet [Dulcolax] Dulcol ax 02/16/2021 12:00:00 AM EDT active M [facility] ([facility], ) quetiapine 100 MG Oral Tablet quetiapine 01/21/2021 12:00:00 AM EDT 100 mg completed <td ID="Medicat ionRxNorm_4">538603</td><td ID="MedicationMedication_4">quetiapine</td><td ID="MedicationRoute_4"></td><td ID="MedicationRouteConcept_4"></td><td ID="MedicationStartDate_4">01/21/2021</td><td ID="MedicationStopDate_4">06/13/2021</td><td ID="MedicationDosageFrequency_4"></td><td ID="MedicationDuration_4">30</td><td ID="MedicationFormulaStrength_4">100 mg</td><td ID="MedicationDosageForm_4">tablet</td><td ID="MedicationDosageFormCode_4"></td><td ID="MedicationDosageDescription_4"></td><td ID="MedicationMedicationId_4">[id number]</td><td ID="MedicationAccount_4">[id number]</td><td ID="MedicationNpid_4">[id number]</td><td ID="MedicationAuthorFirstName_4">Sergio</td><td ID="MedicationAuthorLastName_4">Lawson</td><td ID="MedicationTaxonomyCode_4">[id number]</td><td ID="MedicationTaxonomyDesc_4">Nurse Practitioner</td><td ID="MedicationPhoneNumber_4">[phone]</td> [facility]) gabapentin 800 MG Oral Tablet Gabapentin 12/08/2020 12:00:00 AM EDT ORAL active [facility] ([facility]) quetiapine 100 MG Oral Tablet quetiapine 10/05/2020 12:00:00 AM EDT 100 mg completed <td ID="Medicat ionRxNorm_5">411620</td><td ID="MedicationMedication_5">quetiapine</td><td ID="MedicationRoute_5"></td><td ID="MedicationRouteConcept_5"></td><td ID="MedicationStartDate_5">10/05/2020</td><td ID="MedicationStopDate_5">11/04/2020</td><td ID="MedicationDosageFrequency_5"></td><td ID="MedicationDuration_5">30</td><td ID="MedicationFormulaStrength_5">100 mg</td><td ID="MedicationDosageForm_5">tablet</td><td ID="MedicationDosageFormCode_5"></td><td ID="MedicationDosageDescription_5"></td><td ID="MedicationMedicationId_5">[id number]</td><td ID="MedicationAccount_5">[id number]</td><td ID="MedicationNpid_5">[id number]</td><td ID="MedicationAuthorFirstName_5">Sergio</td><td ID="MedicationAuthorLastName_5">Lawson</td><td ID="MedicationTaxonomyCode_5">[id number]</td><td ID="MedicationTaxonomyDesc_5">Nurse Practitioner</td><td ID="MedicationPhoneNumber_5">[phone]</td> [facility] ([facility]) quetiapine 400 MG Oral Tablet quetiapine 09/27/2020 12:00:00 AM EDT 400 mg completed <td ID="Medicat ionRxNorm_3">599550</td><td ID="MedicationMedication_3">quetiapine</td><td ID="MedicationRoute_3"></td><td ID="MedicationRouteConcept_3"></td><td ID="MedicationStartDate_3">09/27/2020</td><td ID="MedicationStopDate_3">06/07/2021</td><td ID="MedicationDosageFrequency_3"></td><td ID="MedicationDuration_3">28</td><td ID="MedicationFormulaStrength_3">400 mg</td><td ID="MedicationDosageForm_3">tablet</td><td ID="MedicationDosageFormCode_3"></td><td ID="MedicationDosageDescription_3"></td><td ID="MedicationMedicationId_3">[id number]</td><td ID="MedicationAccount_3">[id number]</td><td ID="MedicationNpid_3">[id number]</td><td ID="MedicationAuthorFirstName_3">Sergio</td><td ID="MedicationAuthorLastName_3">Lawson</td><td ID="MedicationTaxonomyCode_3">[id number]</td><td ID="MedicationTaxonomyDesc_3">Nurse Practitioner</td><td ID="MedicationPhoneNumber_3">[phone]</td> [facility] ([facility]) buspirone hydrochloride 10 MG Oral Tablet buspirone 2020 12:00:00 AM EDT 10 mg completed <td ID="Medica tionRxNorm_3">770091</td><td ID="MedicationMedication_3">buspirone</td><td ID="MedicationRoute_3"></td><td ID="MedicationRouteConcept_3"></td><td ID="MedicationStartDate_3">09/27/2020</td><td ID="MedicationStopDate_3"></td><td ID="MedicationDosageFrequency_3"></td><td ID="MedicationDuration_3">28</td><td ID="MedicationFormulaStrength_3">10 mg</td><td ID="MedicationDosageForm_3">tablet</td><td ID="MedicationDosageFormCode_3"></td><td ID="MedicationDosageDescription_3"></td><td ID="MedicationMedicationId_3">[id number]</td><td ID="MedicationAccount_3">[id number]</td><td ID="MedicationNpid_3">[id number]</td><td ID="MedicationAuthorFirstName_3">Sergio</td><td ID="MedicationAuthorLastName_3">Lawson</td><td ID="MedicationTaxonomyCode_3">[id number]</td><td ID="MedicationTaxonomyDesc_3">Nurse Practitioner</td><td ID="MedicationPhoneNumber_3">[phone]</td> [facility] ([facility]) Trazodone Hydrochloride 50 MG Oral Tablet trazodone 2020 12:00:00 AM EDT 50 mg completed <td ID="Medica tionRxNorm_2">355902</td><td ID="MedicationMedication_2">trazodone</td><td ID="MedicationRoute_2"></td><td ID="MedicationRouteConcept_2"></td><td ID="MedicationStartDate_2">09/27/2020</td><td ID="MedicationStopDate_2"></td><td ID="MedicationDosageFrequency_2"></td><td ID="MedicationDuration_2">28</td><td ID="MedicationFormulaStrength_2">50 mg</td><td ID="MedicationDosageForm_2">tablet</td><td ID="MedicationDosageFormCode_2"></td><td ID="MedicationDosageDescription_2"></td><td ID="MedicationMedicationId_2">[id number]</td><td ID="MedicationAccount_2">[id number]</td><td ID="MedicationNpid_2">[id number]</td><td ID="MedicationAuthorFirstName_2">Sergio</td><td ID="MedicationAuthorLastName_2">Lawson</td><td ID="MedicationTaxonomyCode_2">[id number]</td><td ID="MedicationTaxonomyDesc_2">Nurse Practitioner</td><td ID="MedicationPhoneNumber_2">[phone]</td> [facility] ([facility]) buspirone hydrochloride 10 MG Oral Tablet buspirone 2020 12:00:00 AM EDT 10 mg completed <td ID="Medica tionRxNorm_2">969741</td><td ID="MedicationMedication_2">buspirone</td><td ID="MedicationRoute_2"></td><td ID="MedicationRouteConcept_2"></td><td ID="MedicationStartDate_2">09/27/2020</td><td ID="MedicationStopDate_2">06/07/2021</td><td ID="MedicationDosageFrequency_2"></td><td ID="MedicationDuration_2">28</td><td ID="MedicationFormulaStrength_2">10 mg</td><td ID="MedicationDosageForm_2">tablet</td><td ID="MedicationDosageFormCode_2"></td><td ID="MedicationDosageDescription_2"></td><td ID="MedicationMedicationId_2">[id number]</td><td ID="MedicationAccount_2">[id number]</td><td ID="MedicationNpid_2">[id number]</td><td ID="MedicationAuthorFirstName_2">Sergio</td><td ID="MedicationAuthorLastName_2">Lawson</td><td ID="MedicationTaxonomyCode_2">[id number]</td><td ID="MedicationTaxonomyDesc_2">Nurse Practitioner</td><td ID="MedicationPhoneNumber_2">[phone]</td> [facility] ([facility]) Trazodone Hydrochloride 50 MG Oral Tablet trazodone 2019 12:00:00 AM EST 50 mg completed <td ID="Medica tionRxNorm_3">379720</td><td ID="MedicationMedication_3">trazodone</td><td ID="MedicationRoute_3"></td><td ID="MedicationRouteConcept_3"></td><td ID="MedicationStartDate_3">07/06/2020</td><td ID="MedicationStopDate_3"></td><td ID="MedicationDosageFrequency_3"></td><td ID="MedicationDuration_3"></td><td ID="MedicationFormulaStrength_3">50 mg</td><td ID="MedicationDosageForm_3">tablet</td><td ID="MedicationDosageFormCode_3"></td><td ID="MedicationDosageDescription_3"></td><td ID="MedicationMedicationId_3">[id number]</td><td ID="MedicationAccount_3">[id number]</td><td ID="MedicationNpid_3">[id number]</td><td ID="MedicationAuthorFirstName_3">Sergio</td><td ID="MedicationAuthorLastName_3">Lawson</td><td ID="MedicationTaxonomyCode_3">[id number]</td><td ID="MedicationTaxonomyDesc_3">Nurse Practitioner</td><td ID="MedicationPhoneNumber_3">[phone]</td> [facility] ([facility]) quetiapine 400 MG Oral Tablet [Seroquel] Seroquel 07/06/2020 12 :00:00 AM EST 400 mg completed <td ID="Me dicationRxNorm_5">512528</td><td ID="MedicationMedication_5">Seroquel</td><td ID="MedicationRoute_5"></td><td ID="MedicationRouteConcept_5"></td><td ID="MedicationStartDate_5">07/06/2020</td><td ID="MedicationStopDate_5">09/10/2020</td><td ID="MedicationDosageFrequency_5"></td><td ID="MedicationDuration_5">30</td><td ID="MedicationFormulaStrength_5">400 mg</td><td ID="MedicationDosageForm_5">tablet</td><td ID="MedicationDosageFormCode_5"></td><td ID="MedicationDosageDescription_5"></td><td ID="MedicationMedicationId_5">[id number]</td><td ID="MedicationAccount_5">[id number]</td><td ID="MedicationNpid_5">[id number]</td><td ID="MedicationAuthorFirstName_5">Sergio</td><td ID="MedicationAuthorLastName_5">Lawson</td><td ID="MedicationTaxonomyCode_5">[id number]</td><td ID="MedicationTaxonomyDesc_5">Nurse Practitioner</td><td ID="MedicationPhoneNumber_5">[phone]</td> [facility] ([facility]) duloxetine 60 MG Delayed Release Oral Capsule duloxetine 05/17/2020 12:00:00 AM EST 60 mg by mouth completed <td ID="MedicationRxNorm_1">740511</td><td ID="MedicationMedication_1">duloxetine</td><td ID="MedicationRoute_1">by mouth</td><td ID="MedicationRouteConcept_1">O12945</td><td ID="MedicationStartDate_1">05/17/2020</td><td ID="MedicationStopDate_1"></td><td ID="MedicationDosageFrequency_1">twice a day</td><td ID="MedicationDuration_1"></td><td ID="MedicationFormulaStrength_1">60 mg</td><td ID="MedicationDosageForm_1">capsule,delayed release(DR/EC)</td><td ID="MedicationDosageFormCode_1"></td><td ID="MedicationDosageDescription_1"></td><td ID="MedicationMedicationId_1">57429</td><td ID="MedicationAccount_1">[id number]</td><td ID="MedicationNpid_1">[id number]</td><td ID="MedicationAuthorFirstName_1">Sergio</td><td ID="MedicationAuthorLastName_1">Lawson</td><td ID="MedicationTaxonomyCode_1">[id number]</td><td ID="MedicationTaxonomyDesc_1"> Nurse Practitioner</td><td ID="MedicationPhoneNumber_1">[phone]</td> [facility] ([facility]) duloxetine 60 MG Delayed Release Oral Capsule duloxetine 05/17/2020 12:00:00 AM EST 60 mg by mouth completed <td ID="MedicationRxNorm_3">233955</td><td ID="MedicationMedication_3">duloxetine</td><td ID="MedicationRoute_3">by mouth</td><td ID="MedicationRouteConcept_3">M77256</td><td ID="MedicationStartDate_3">05/17/2020</td><td ID="MedicationStopDate_3"></td><td ID="MedicationDosageFrequency_3">twice a day</td><td ID="MedicationDuration_3"></td><td ID="MedicationFormulaStrength_3">60 mg</td><td ID="MedicationDosageForm_3">capsule,delayed release(DR/EC)</td><td ID="MedicationDosageFormCode_3"></td><td ID="MedicationDosageDescription_3"></td><td ID="MedicationMedicationId_3">[id number]</td><td ID="MedicationAccount_3">[id number]</td><td ID="MedicationNpid_3">[id number]</td><td ID="MedicationAuthorFirstName_3">Stephane</td><td ID="MedicationAuthorLastName_3">Ladonna</td><td ID="MedicationTaxonomyCode_3">[id number]</td><td ID="MedicationTaxonomyDesc_3"> Psychiatry</td><td ID="MedicationPhoneNumber_3">[phone]</td> [facility] ([facility]) duloxetine 60 MG Delayed Release Oral Capsule duloxetine 05/17/2020 12:00:00 AM EST 60 mg by mouth completed <td ID="MedicationRxNorm_4">511228</td><td ID="MedicationMedication_4">duloxetine</td><td ID="MedicationRoute_4">by mouth</td><td ID="MedicationRouteConcept_4">L76715</td><td ID="MedicationStartDate_4">05/17/2020</td><td ID="MedicationStopDate_4"></td><td ID="MedicationDosageFrequency_4">twice a day</td><td ID="MedicationDuration_4"></td><td ID="MedicationFormulaStrength_4">60 mg</td><td ID="MedicationDosageForm_4">capsule,delayed release(DR/EC)</td><td ID="MedicationDosageFormCode_4"></td><td ID="MedicationDosageDescription_4"></td><td ID="MedicationMedicationId_4">31947</td><td ID="MedicationAccount_4">[id number]</td><td ID="MedicationNpid_4">[id number]</td><td ID="MedicationAuthorFirstName_4">Stephane</td><td ID="MedicationAuthorLastName_4">[facility]</td><td ID="MedicationTaxonomyCode_4">[id number]</td><td ID="MedicationTaxonomyDesc_4"> Psychiatry</td><td ID="MedicationPhoneNumber_4">[phone]</td> [facility] ([facility]) duloxetine 60 MG Delayed Release Oral Capsule duloxetine 05/17/2020 12:00:00 AM EST 60 mg by mouth completed <td ID="MedicationRxNorm_2">285110</td><td ID="MedicationMedication_2">duloxetine</td><td ID="MedicationRoute_2">by mouth</td><td ID="MedicationRouteConcept_2">X08693</td><td ID="MedicationStartDate_2">05/17/2020</td><td ID="MedicationStopDate_2"></td><td ID="MedicationDosageFrequency_2">twice a day</td><td ID="MedicationDuration_2"></td><td ID="MedicationFormulaStrength_2">60 mg</td><td ID="MedicationDosageForm_2">capsule,delayed release(DR/EC)</td><td ID="MedicationDosageFormCode_2"></td><td ID="MedicationDosageDescription_2"></td><td ID="MedicationMedicationId_2">[id number]</td><td ID="MedicationAccount_2">[id number]</td><td ID="MedicationNpid_2">[id number]</td><td ID="MedicationAuthorFirstName_2"></td><td ID="MedicationAuthorLastName_2">Arpit</td><td ID="MedicationTaxonomyCode_2">[id number]</td><td ID="MedicationTaxonomyDesc_2"> Nurse Practitioner</td><td ID="MedicationPhoneNumber_2">[phone]</td> [facility] ([facility]) quetiapine 50 MG Oral Tablet quetiapine 04/21/2020 12:00:00 AM EDT 50 mg by mouth completed <td ID="Medica tionRxNorm_3">213148</td><td ID="MedicationMedication_3">quetiapine</td><td ID="MedicationRoute_3">by mouth</td><td ID="MedicationRouteConcept_3">I13754</td><td ID="MedicationStartDate_3">04/21/2020</td><td ID="MedicationStopDate_3"></td><td ID="MedicationDosageFrequency_3">at bedtime</td><td ID="MedicationDuration_3">30</td><td ID="MedicationFormulaStrength_3">50 mg</td><td ID="MedicationDosageForm_3">tablet</td><td ID="MedicationDosageFormCode_3"></td><td ID="MedicationDosageDescription_3"></td><td ID="MedicationMedicationId_3">[id number]</td><td ID="MedicationAccount_3">[id number]</td><td ID="MedicationNpid_3">[id number]</td><td ID="MedicationAuthorFirstName_3"></td><td ID="MedicationAuthorLastName_3">Arpit</td><td ID="MedicationTaxonomyCode_3">[id number]</td><td ID="MedicationTaxonomyDesc_3">Nurse Practitioner</td><td ID="MedicationPhoneNumber_3">[phone]</td> [facility] ([facility]) quetiapine 50 MG Oral Tablet quetiapine 04/21/2020 12:00:00 AM EDT 50 mg by mouth completed <td ID="Medica tionRxNorm_4">962100</td><td ID="MedicationMedication_4">quetiapine</td><td ID="MedicationRoute_4">by mouth</td><td ID="MedicationRouteConcept_4">I36226</td><td ID="MedicationStartDate_4">04/21/2020</td><td ID="MedicationStopDate_4">08/20/2020</td><td ID="MedicationDosageFrequency_4">at bedtime</td><td ID="MedicationDuration_4">30</td><td ID="MedicationFormulaStrength_4">50 mg</td><td ID="MedicationDosageForm_4">tablet</td><td ID="MedicationDosageFormCode_4"></td><td ID="MedicationDosageDescription_4"></td><td ID="MedicationMedicationId_4">[id number]</td><td ID="MedicationAccount_4">[id number]</td><td ID="MedicationNpid_4">[id number]</td><td ID="MedicationAuthorFirstName_4">Stephane</td><td ID="MedicationAuthorLastName_4">Ladonna</td><td ID="MedicationTaxonomyCode_4">[id number]</td><td ID="MedicationTaxonomyDesc_4">Psychiatry</td><td ID="MedicationPhoneNumber_4"> [phone]</td> [facility] ([facility] Sucralfate 1000 MG Oral Tablet sucralfat e 1 gram tablet TAKE ONE TABLET BY MOUTH FOUR TIMES DAILY sucralfate 1 gram tablet TAKE ONE TABLET BY MOUTH FOUR TIMES DAILY completed sucralfate 1000 MG Oral Tablet [facility] ([facility]) quetiapine 100 MG Oral Tablet quetiapine 100 mg tablet TAKE 1/2 TABLET BY MOUTH @8PM with 400 MG TABLET FOR total DOSE of 450 MG quetiapine 100 mg tablet TAKE 1/2 TABLET BY MOUTH @8PM with 400 MG TABLET FOR total DOSE of 450 MG completed quetiapine 100 MG Oral Table t [facility] ([facility]) tramadol hydrochloride 50 MG Oral Tablet tramadol 50 mg tablet TAKE ONE TABLET BY MOUTH TWICE DAILY, MAX DAILY DOSE TWO TABLETS tramadol 50 mg tablet TAKE ONE TABLET BY MOUTH TWICE DAILY, MAX DAILY DOSE TWO TABLETS completed tramadol hydrochloride 50 MG Oral Tablet [facility] ([facility]) vitamin B complex completed vi tamin B complex [facility] ([facility]) Promethazine Hydrochloride 25 MG Oral Ta blet promethazine 25 mg tablet TAKE ONE TABLET BY MOUTH EVERY SIX HOURS NEEDED FOR NAUSEA promethazine 25 mg tablet TAKE ONE TABLET BY MOUTH EVERY SIX HOURS NEEDED FOR NAUSEA completed promethazine hydrochloride 25 MG Oral Tablet [facility] ([facility]) quetiapine 100 MG Oral Tablet quetiapine 100 mg tablet TAKE 1/2 TABLET BY MOUTH @8PM quetiapine 100 mg tablet TAKE 1/2 TABLET BY MOUTH @8PM completed quetiapine 100 MG Oral Tablet AT [facility]) gabapentin 600 MG Oral Tablet gabapentin 600 mg tablet TAKE ONE TABLET BY MOUTH @8AM and TAKE ONE TABLET @12PM and TAKE ONE TABLET @8PM gabapentin 600 mg tablet TAKE ONE TABLET BY MOUTH @8AM and TAKE ONE TABLET @12PM and TAKE ONE TABLET @8PM completed gabapentin 600 M G Oral Tablet [facility] ([facility]) Hydroxyzine Hydrochloride 50 MG Oral Tab let hydroxyzine HCl 50 mg tablet TAKE ONE TABLET BY MOUTH FOUR TIMES DAILY NEEDED hydroxyzine HCl 50 mg tablet TAKE ONE TABLET BY MOUTH FOUR TIMES DAILY NEEDED completed hydroxyzine hydrochloride 50 MG Oral Tablet [facility] ([facility]) meloxicam 15 MG Oral Tablet meloxicam 15 mg tablet meloxicam 15 mg ta blet completed meloxicam 15 MG Oral Tablet [facility] ([facility]) Trazodone Hydrochloride 50 MG Oral Table t trazodone 50 mg tablet TAKE ONE TABLET BY MOUTH @8PM as needed trazodone 50 mg tablet TAKE ONE TABLET B Y MOUTH @8PM as needed completed trazodone hydr ochloride 50 MG Oral Tablet [facility] ([facility]) Sucralfate 1000 MG Oral Tablet sucralfat e 1 gram tablet TAKE ONE TABLET BY MOUTH FOUR TIMES DAILY sucralfate 1 gram tablet TAKE ONE TABLET BY MOUTH FOUR TIMES DAILY completed sucralfate 1000 MG Oral Tablet DARREN ([facility]) gabapentin 600 MG Oral Tablet gabapentin 600 mg tablet TAKE ONE TABLET BY MOUTH @8AM and TAKE ONE TABLET @12PM and TAKE ONE TABLET @8PM gabapentin 600 mg tablet TAKE ONE TABLET BY MOUTH @8AM and TAKE ONE TABLET @12PM and TAKE ONE TABLET @8PM completed gabapentin 600 M G Oral Tablet DARREN ([facility]) tramadol hydrochloride 50 MG Oral Tablet tramadol 50 mg tablet TAKE ONE TABLET BY MOUTH TWICE DAILY, MAX DAILY DOSE TWO TABLETS tramadol 50 mg tablet TAKE ONE TABLET BY MOUTH TWICE DAILY, MAX DAILY DOSE TWO TABLETS completed tramadol hydrochloride 50 MG Oral Tablet [facility] ([facility]) tramadol hydrochloride 50 MG Oral Tablet tramadol 50 mg tablet TAKE ONE TABLET BY MOUTH TWICE DAILY, MAX DAILY DOSE TWO TABLETS tramadol 50 mg tablet TAKE ONE TABLET BY MOUTH TWICE DAILY, MAX DAILY DOSE TWO TABLETS completed tramadol hydrochloride 50 MG Oral Tablet SH[facility]NEE ([facility]) vitamin B complex completed vi tamin B complex [facility] ([facility]) duloxetine 30 MG Delayed Release Oral Ca psule duloxetine 30 mg capsule,delayed release TAKE ONE CAPSULE BY MOUTH @8AM duloxetine 30 mg capsule,delayed release TAKE ONE CAPSULE BY MOUTH @8AM complet ed duloxetine 30 MG Delayed Release Oral Capsule [facility]) Hydroxyzine Hydrochloride 50 MG Oral Tab let hydroxyzine HCl 50 mg tablet TAKE ONE TABLET BY MOUTH FOUR TIMES DAILY NEEDED hydroxyzine HCl 50 mg tablet TAKE ONE TABLET BY MOUTH FOUR TIMES DAILY NEEDED completed hydroxyzine hydrochloride 50 MG Oral Tablet [facility] ([facility]) duloxetine 30 MG Delayed Release Oral Ca psule duloxetine 30 mg capsule,delayed release TAKE ONE CAPSULE BY MOUTH @8AM duloxetine 30 mg capsule,delayed release TAKE ONE CAPSULE BY MOUTH @8AM complet ed duloxetine 30 MG Delayed Release Oral Capsule SH[facility]NEE ([facility]) Hydroxyzine Hydrochloride 50 MG Oral Tab let hydroxyzine HCl 50 mg tablet TAKE ONE TABLET BY MOUTH FOUR TIMES DAILY NEEDED hydroxyzine HCl 50 mg tablet TAKE ONE TABLET BY MOUTH FOUR TIMES DAILY NEEDED completed hydroxyzine hydrochloride 50 MG Oral Tablet [facility] ([facility]) Trazodone Hydrochloride 50 MG Oral Table t trazodone 50 mg tablet TAKE ONE TABLET BY MOUTH @8PM as needed trazodone 50 mg tablet TAKE ONE TABLET B Y MOUTH @8PM as needed completed trazodone hydr ochloride 50 MG Oral Tablet [facility] ([facility]) meloxicam 15 MG Oral Tablet meloxicam 15 mg tablet meloxicam 15 mg ta blet completed meloxicam 15 MG Oral Tablet [facility] ([facility]) Trazodone Hydrochloride 50 MG Oral Table t trazodone 50 mg tablet TAKE ONE TABLET BY MOUTH @8PM as needed trazodone 50 mg tablet TAKE ONE TABLET B Y MOUTH @8PM as needed completed trazodone hydr ochloride 50 MG Oral Tablet DARREN ([facility]) duloxetine 30 MG Delayed Release Oral Ca psule duloxetine 30 mg capsule,delayed release TAKE ONE CAPSULE BY MOUTH @8AM duloxetine 30 mg capsule,delayed release TAKE ONE CAPSULE BY MOUTH @8AM complet ed duloxetine 30 MG Delayed Release Oral Capsule [facility] ([facility]) quetiapine 100 MG Oral Tablet quetiapine 100 mg tablet TAKE 1/2 TABLET BY MOUTH @8PM quetiapine 100 mg tablet TAKE 1/2 TABLET BY MOUTH @8PM completed quetiapine 100 MG Oral Tablet AT [facility]) Promethazine Hydrochloride 25 MG Oral Ta blet promethazine 25 mg tablet TAKE ONE TABLET BY MOUTH EVERY SIX HOURS NEEDED FOR NAUSEA promethazine 25 mg tablet TAKE ONE TABLET BY MOUTH EVERY SIX HOURS NEEDED FOR NAUSEA completed promethazine hydrochloride 25 MG Oral Tablet [facility] ([facility]) Promethazine Hydrochloride 25 MG Oral Ta blet promethazine 25 mg tablet TAKE ONE TABLET BY MOUTH EVERY SIX HOURS NEEDED FOR NAUSEA promethazine 25 mg tablet TAKE ONE TABLET BY MOUTH EVERY SIX HOURS NEEDED FOR NAUSEA completed promethazine hydrochloride 25 MG Oral Tablet [facility] ([facility]) Sucralfate 1000 MG Oral Tablet sucralfat e 1 gram tablet TAKE ONE TABLET BY MOUTH FOUR TIMES DAILY sucralfate 1 gram tablet TAKE ONE TABLET BY MOUTH FOUR TIMES DAILY completed sucralfate 1000 MG Oral Tablet [facility] ([facility]) Insurance Providers Payer name Policy type / Coverage type Policy ID Covered republican ID Covered republican's relationship to guzman Policy Guzman Plan Information [employer] ([place]) Workers Compensation [id number] [employer] ([place]) Workers Compensation [id number] [employer] ([place]) Workers Compensation [id number] [employer] ([place]) Workers Compensation [id number] [employer] ([place]) Workers Compensation [id number] [facility] ([place]) Workers Compensation [id number] Family Dependent [id number] [facility] COMMUNITY PLAN [facility] [id number] SP [id number] [facility] Community Plan Commercial [id number] Self [id number] SELF PAY ONLY [id number] SP [id number] SELF PAY ONLY [id number] SP [id number] [facility] COMMUNITY PLAN [facility] [id number] SP [id number] [facility] UNAVAILABLE SP UNAVAILABLE [facility] COMMUNITY PLAN [facility] [id number] SP [id number] [facility](MCAID) P [id number] S [id number] MEDICAID [id number] SP [id number] SELF PAY UNAVAILABLE UNAVAILA [facility]LE [facility] [place] [id number] [employer] [id number] SP [id number] [employer] [id number] SP [id number] SELF PAY [id number] SP [id number] [facility] INS CO NO FAULT [id number] MEDICAID [id number] SP [id number] MEDICAID [id number] SP [id number] [employer] [place] PL[employer] [id number] SP [id number] [employer] [employer] [id number] SP [id number] [facility] COMMUNITY PLAN [facility] [id number] SP [id number] [facility] COMMUNITY PLAN [facility] [id number] [facility](MCAID) O [id number] S [id number] [facility] [id number] SP [id number] Self Pay P none S none MEDICAID [id number] SP [id number] MEDICAID M [id number] S [id number] [facility] COMMUNITY [facility] [id number] SP [id number] [facility] [id number] SELF PAY ONLY [id number] SP [id number] MEDICAID [id number] SP [id number] Problems, Conditions, and Diagnoses Code Display Name Description Problem Type Effective Dates Data Source(s) F12.10 Cannabis abuse, uncomplicated Cannabis Use Disorder, M ild Condition 04/19/2021 12:00:00 AM EDT [facility] ([facility]) Z72.0 Tobacco use Tobacco Use Disorder, Mild Condition 1 12:00:00 AM EDT [facility] ([facility]) F51.01 Primary insomnia Insomnia Disorder Condition 04/19/2021 1 2:00:00 AM EDT [facility] ([facility]) F41.1 Generalized anxiety disorder Generalized Anxiety Disor randy Condition 04/19/2021 12:00:00 AM EDT [facility] ([facility]) F25.1 Schizoaffective disorder, depressive typ e Schizoaffective Disorder, Depressive type Condition 04/19/2021 12:00:00 AM EDT [facility] ([facility]) [id number] Essential hypertension Essential hypertension Problem 02/02/2021 12:00:00 AM EDT HELEN ([facility], ) [id number] Administration of diphtheria, pertussis, and tetanus vaccine Administration of Diphtheria, Pertussis, and Tetanus Vaccine Problem 12/17/2020 12:00:00 AM EDT DARREN ([facility]) [id number] Impaired fasting glycemia Impaired Fasting Glycemia Pr oblem 12/17/2020 12:00:00 AM EDT DARREN ([facility]) [id number] Dyslipidemia Dyslipidemia Problem 12/17/2020 12:00:00 A M EDT DARREN ([facility]) [id number] Administration of diphtheria, pertussis, and tetanus vaccine Administration of Diphtheria, Pertussis, and Tetanus Vaccine Problem 12/17/2020 12:00:00 AM EDT DARREN ([facility]) 720419564 Impaired fasting glycemia Impaired Fasting Glycemia Pr oblem 12/17/2020 12:00:00 AM EDT [facility]ARREN ([facility]) [id number] Dyslipidemia Dyslipidemia Problem 12/17/2020 12:00:00 A M EDT DARREN ([facility]) [id number] Pain in right hand Pain in Right Hand Problem 10/25/2020 12:00:00 AM EDT DARREN ([facility]) [id number] Constipation alternates with diarrhea Co nstipation Alternates with Diarrhea Problem 10/25/2020 12:00:00 AM EDT DARREN ([facility]) 163092123 Chronic low back pain Chronic Low Back Pain Problem 10/25/2020 12:00:00 AM EDT DARREN ([facility]) [id number] Gastroesophageal reflux disease Gastroesophageal Reflux Disease Problem 10/25/2020 12:00:00 AM EDT DARREN (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 Anxiety and Depressive Disorder Problem 10/25/2020 12:00:00 AM EDT DARREN ([facility]) 256386545 Body mass index 30+ - obesity Body Mass Index 30+ - Ob esity Problem 10/25/2020 12:00:00 AM EDT DARREN ([facility]) [id number] Pain in right hand Pain in Right Hand Problem 10/25/2020 12:00:00 AM EDT DARREN ([facility]) 384985833 Constipation alternates with diarrhea Co nstipation Alternates with Diarrhea Problem 10/25/2020 12:00:00 AM EDT DARREN ([facility]) 468007814 Chronic low back pain Chronic Low Back Pain Problem 10/25/2020 12:00:00 AM EDT DARREN ([facility]) 424808845 Gastroesophageal reflux disease Gastroesophageal Reflux Disease Problem 10/25/2020 12:00:00 AM EDT DARREN (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 Anxiety and Depressive Disorder Problem 10/25/2020 12:00:00 AM EDT DARREN ([facility]) 203871363 Body mass index 30+ - obesity Body Mass Index 30+ - Ob esity Problem 10/25/2020 12:00:00 AM EDT DARREN ([facility]) [id number] Pain in right hand Pain in Right Hand Problem 10/25/2020 12:00:00 AM EDT SHAWNEE ([facility]) 994886987 Constipation alternates with diarrhea Co nstipation Alternates with Diarrhea Problem 10/25/2020 12:00:00 AM EDT SHAWNEE ([facility]) 924237631 Chronic low back pain Chronic Low Back Pain Problem 10/25/2020 12:00:00 AM EDT SHAWNEE ([facility]) 718466962 Gastroesophageal reflux disease Gastroesophageal Reflux Disease Problem 10/25/2020 12:00:00 AM EDT DARREN (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 Anxiety and Depressive Disorder Problem 10/25/2020 12:00:00 AM EDT SHAWNEE ([facility]) 738941864 Body mass index 30+ - obesity Body Mass Index 30+ - Ob esity Problem 10/25/2020 12:00:00 AM EDT [facility] ([facility]) Surgeries/Procedures Procedure Description Date Indications Data Source(s) [facility] Telemed E/M Lvl 3--Est pt 04/19/2021 12:00:00 AM EDT - 04/19/2021 12:00:00 AM EDT [facility] ([facility]) [facility] Telemed E/M Lvl 3--Est pt 04/19/2021 12:00:00 AM E DT [facility] ([facility]) OFFICE OUTPATIENT NEW 45 MINUTES 02/02/2021 12:00:00 A M EDT MEDENT ([facility] ) [facility] Telemed E/M Lvl 3--Est pt 12/22/2020 12:00:00 AM EDT - 12/22/2020 12:00:00 AM EDT [facility] ([facility]) MHC Telemed E/M Lvl 3--Est pt 12/22/2020 12:00:00 AM E DT [facility] ([facility]) OFFICE OUTPATIENT VISIT 25 MINUTES 12/08/2020 12:00:00 AM EDT [facility] ([facility]) MHC Telemed E/M Lvl 3--Est pt 10/20/2020 12:00:00 AM EDT - 10/20/2020 12:00:00 AM EDT [facility] ([facility]) MHC Telemed E/M Lvl 3--Est pt 10/20/2020 12:00:00 AM E DT [facility] ([facility]) MHC Telemed E/M Lvl 3--Est pt 08/25/2020 12:00:00 AM EST - 08/25/2020 12:00:00 AM EST [facility] ([facility]) MHC Telemed E/M Lvl 3--Est pt 08/25/2020 12:00:[address] [facility] ([facility]) MHC Telemed E/M Lvl 3--Est pt 08/25/2020 12:00:00 AM EST - 08/25/2020 12:00:00 AM EST [facility] ([facility]) MHC Telemed E/M Lvl 3--Est pt 07/28/2020 12:00:00 AM EST - 07/28/2020 12:00:00 AM EST [facility] ([facility]) MHC Telemed E/M Lvl 3--Est pt 07/28/2020 12:00:[address] [facility] ([facility]) MHC Telemed E/M Lvl 3--Est pt 06/21/2020 12:00:00 AM EST - 06/21/2020 12:00:00 AM EST [facility] ([facility]) MHC Telemed E/M Lvl 3--Est pt 06/21/2020 12:00:[address] [facility] ([facility]) Results ID Date Data Source [id number] 03/14/2021 11:43:00 PM EDT [facility] Name Value Range Interpretation Code Description Data Christen rce(s) Supporting Document(s) SARS-CoV-2 (COVID 19) NEGATIVE - SARS-CoV-2 (COVID19) [facility] This lab was ordered by [facility] a nd reported by [facility]. ID Date Data Source [id number] 02/02/2021 01:04:00 PM EDT [facility]) Name Value Range Interpretation Code Description Data Christen rce(s) Supporting Document(s) Lactoferrin [Presence] in Stool by Immunoassay Laboratory test result [facility] ([facility]) Fat Fecal Qualitative Laboratory test result [facility] ([facility]) Elastase.pancreatic [Mass/mass] in Stool Laboratory test result [facility] ([facility]) ID Date Data Source [id number] 02/02/2021 01:04:00 PM EDT [facility] ([facility]) Name Value Range Interpretation Code Description Data Christen rce(s) Supporting Document(s) IgA Serum (part of Subclasses) 138 mg/dL 90-386 N ormal (applies to non-numeric results) [facility] ([facility]) Igasub3 26.2 mg/dL 13.4-97.9 Normal (applies to non-numeric resul ts) [facility] ([facility]) Igasub2 105.2 mg/dL 73.2-301.2 Normal (applies to non-numeric resu lts) [facility]) ID Date Data Source [id number] 02/02/2021 01:04:00 PM EDT [facility] ([facility]) Name Value Range Interpretation Code Description Data Christen rce(s) Supporting Document(s) Tissue transglutaminase IgA Ab [Units/volume] in Serum Labor atory test result 0-3 Normal (applies to non-numeric results) [facility] ([facility]) Negative 0 - 3 Weak Positive 4 - 10 Positive >10 . Tissue Transglutaminase (tTG) has been identified as the endomysial antigen. Studies have demonstr- ated that endomysial IgA antibodies have over 99% specificity for gluten sensitive enteropathy. Performed at: - [facility] [address] [id number] Internet Designer: Trinity Lowe MD, Phone: [phone] Performed at: - [facility] [address] [id number] Internet Designer: Phil Badillo MD, Phone: [phone] ID Date Data Source [id number] 02/02/2021 01:04:00 PM EDT [facility] ([facility]) Name Value Range Interpretation Code Description Data Christen rce(s) Supporting Document(s) Ast/Sgot 38 U/L 7-37 Above high normal [facility] ([facility]) Alt/SGPT 73 U/L 12-78 Normal (applies to non-numeric resul ts) [facility] ([facility]) Alkaline Phosphatase 115 U/L 45-117 Normal (applies to non-num maryjo results) [facility] ([facility]) Bilirubin,Total 0.3 mg/dL 0.2-1.0 Normal (applies to non-numeric results) [facility] ([facility]) Bilirubin,Direct Laboratory test result 0.0-0.2 Normal ( applies to non-numeric results) [facility] ([facility]) Albumin 3.9 GM/DL 3.2-5.2 Normal (applies to non-numeric resul ts) [facility] ([facility]) Total Protein 7.0 GM/DL 6.4-8.2 Normal (applies to non-numeric re sults) [facility]) Albumin/Globulin Ratio 1.3 Normal (applies to non-n umeric results) [facility]) ID Date Data Source [id number] 02/02/2021 01:04:00 PM EDT [facility] ([facility]) Name Value Range Interpretation Code Description Data Christen rce(s) Supporting Document(s) Glomerular Filtration Rate Laboratory test result Normal (applies to non- numeric results) [facility]) <content>Units are mL/min/1.73 m2</content>
<content></content>
<content>Chronic Kidney Disease Staging per NKF:</content>
<content></content>
<content>Stage I & II GFR >=60 Normal to Mildly Decreased</content>
<content>Stage III GFR 30- 59 Moderately Decreased</content>
<content>Stage IV GFR 15-29 Severely Decreased</content>
<content>Stage V GFR <15 Very Little GFR Left</content>
<content>ESRD GFR <15 on PRESS CATCHER</content>
<content></content> Creatinine For GFR 0.84 mg/dL 0.70-1.30 Normal (applies to non -numeric results) [facility]) ID Date Data Source [id number] 02/02/2021 01:04:00 PM EDT [facility]) Name Value Range Interpretation Code Description Data Christen rce(s) Supporting Document(s) Urea nitrogen [Mass/volume] in Serum or Plasma 11 mg/dL 7 -18 Normal (applies to non-numeric results) [facility]) ID Date Data Source [id number] 02/02/2021 01:04:00 PM EDT [facility]) Name Value Range Interpretation Code Description Data Christen rce(s) Supporting Document(s) Ferritin [Mass/volume] in Serum or Plasma 74 ng/mL 26-388 Normal (applies to non-numeric results) [facility]) ID Date Data Source [id number] 02/02/2021 01:04:00 PM EDT [facility]) Name Value Range Interpretation Code Description Data Christen rce(s) Supporting Document(s) Iron (Fe) 83 ug/dL 65-175 Normal (applies to non-numeric resul ts) [facility]) Total Iron Binding Capacity 350 ug/dL 250-450 Norm al (applies to non-numeric results) [facility]) Percent Saturation 23.7 % 19.7-50.0 Normal (applies to non-numer ic results) [facility]) ID Date Data Source [id number] 02/02/2021 01:04:00 PM EDT [facility] ([facility]) Name Value Range Interpretation Code Description Data Christen rce(s) Supporting Document(s) Red Blood Count 5.33 10 4.30-6.10 Normal (applies to non-numeric results) [facility]) Hemoglobin 15.6 g/dL 13.5-17.5 Normal (applies to non-numeric resul ts) [facility]) White Blood Count 9.6 10 4.0-10.0 Normal (applies to non-numeri c results) [facility]) Hematocrit 46.5 % 42.0-52.0 Normal (applies to non-numeric resul ts) [facility]) Mean Corpuscular Volume 87.2 fl 80.0-96.0 Normal ( applies to non-numeric results) [facility]) Mean Corpuscular HGB Conc 33.5 g/dL 32.0-36.5 Normal (applies to non-numeric results) [facility]) Mean Corpuscular Hemoglobin 29.3 pg 27.0-33.0 Norm al (applies to non-numeric results) [facility]) Red Cell Distribution Width 12.9 % 11.5-14.5 Norm al (applies to non-numeric results) [facility]) Platelet Count, Automated 278 10 150-450 Normal (applies to non-numeric results) [facility]) Neutrophils % 44.3 % 36.0-66.0 Normal (applies to non-numeric re sults) [facility]) Lymph % 42.3 % 24.0-44.0 Normal (applies to non-numeric resul ts) [facility] ([facility]) Grayson % 9.3 % 2.0-8.0 Above high normal [facility] ([facility]) Eos % 2.6 % 0.0-3.0 Normal (applies to non-numeric resul ts) [facility] ([facility]) Baso % 0.7 % 0.0-1.0 Normal (applies to non-numeric resul ts) [facility] ([facility]) Immature Granulocyte % 0.8 % 0-3.0 Normal (applies to non-n umeric results) [facility] ([facility]) Nucleated Red Blood Cell % 0.0 % 0-0 Normal (applies to n on-numeric results) [facility] ([facility]) Neutrophils # 4.3 10 1.5-8.5 Normal (applies to non-numeric re sults) [facility] ([facility]) Lymph # 4.1 10 1.5-5.0 Normal (applies to non-numeric resul ts) [facility] ([facility]) Grayson # 0.9 10 0.0-0.8 Above high normal [facility] ([facility]) Eos # 0.3 10 0.0-0.5 Normal (applies to non-numeric resul ts) [facility] ([facility]) Baso # 0.1 10 0.0-0.2 Normal (applies to non-numeric resul ts) [facility] ([facility]) ID Date Data Source [id number] 12/07/2020 09:16:00 AM EDT [facility] ([facility]) Name Value Range Interpretation Code Description Data Christen rce(s) Supporting Document(s) Glucose [Mass/volume] in Serum or Plasma 103 mg/dL 65-99 Above high normal Glucose [facility]EE ([facility]) Urea nitrogen [Mass/volume] in Serum or Plasma 10 mg/dL 7-25 Urea Nitrogen (BUN) DARREN ([facility]) Glomerular filtration rate/1.73 sq M.pre dicted among non-blacks [Volume Rate/Area] in Serum, Plasma or Blood by Creatinine-based formula (CKD-EPI) 94 mL/min/1.73m2 > or = 60 eGFR Non-afr. Martiniquais DARREN ([facility]) Creatinine [Mass/volume] in Serum or Plasma 1.02 mg/dL 0.60-1.35 Creatinine DARREN ([facility]) Glomerular filtration rate/1.73 sq M.pre dicted among blacks [Volume Rate/Area] in Serum, Plasma or Blood by Creatinine-based formula (CKD-EPI) 109 mL/min/1.73m2 > or = 60 eGFR [facility] ([facility]) Urea nitrogen/Creatinine [Mass Ratio] in Serum or Plasma not applic able 6-22 BUN/creatinine Ratio D[facility]EN ([facility]) Sodium [Moles/volume] in Serum or Plasma 141 mmol/L 135-146 Sodium [facility] ([facility]) Chloride [Moles/volume] in Serum or Plasma 108 mmol/L 98-110 Chloride D[facility] ([facility]) Potassium [Moles/volume] in Serum or Plasma 4.0 mmol/L 3.5-5.3 Potassium D[facility] ([facility]) Carbon dioxide, total [Moles/volume] in Serum or Plasma 24 mmol/L 20-32 Carbon Dioxide D[facility]EN ([facility]) Protein [Mass/volume] in Serum or Plasma 6.6 g/dL 6.1-8.1 Protein, Total [facility]EN ([facility]) Calcium [Mass/volume] in Serum or Plasma 9.0 mg/dL 8.6-10.3 Calcium DARREN ([facility]) Globulin [Mass/volume] in Serum by calculation 2.2 g/dL_(calc) 1.9- 3.7 Globulin DARREN ([facility]) Albumin [Mass/volume] in Serum or Plasma 4.4 g/dL 3.6-5.1 Albumin DARREN ([facility]) Albumin/Globulin [Mass Ratio] in Serum or Plasma 2.0 (calc) 1.0-2 .5 Albumin/globulin Ratio DARREN ([facility]) Aspartate aminotransferase [Enzymatic activity/volume] in Serum or Plasma 31 U/L 10-40 Ast DARREN ([facility]) Bilirubin.total [Mass/volume] in Serum or Plasma 0.3 mg/dL 0.2-1 .2 Bilirubin, Total DARREN ([facility]) Alanine aminotransferase [Enzymatic activity/volume] in Seru m or Plasma 46 U/L 9-46 Alt DARREN ([facility]) Alkaline phosphatase [Enzymatic activity/volume] in Serum or Plasma 109 U/L 36-130 Alkaline Phosphatase DARREN ([facility]) ID Date Data Source [id number] 12/07/2020 09:16:00 AM EDT DARREN ([facility]) Name Value Range Interpretation Code Description Data Christen rce(s) Supporting Document(s) Triiodothyronine resin uptake (T3RU) in Serum or Plasma 27 % 22 -35 T3 Uptake DARREN ([facility]) Thyrotropin [Units/volume] in Serum or Plasma 0.81 mIU/L 0.40-4.50 Tsh DARREN ([facility]) Thyroxine (T4) [Mass/volume] in Serum or Plasma 5.7 mcg/dL 4.9-10 .5 T4 (Thyroxine), Total DARREN ([facility]) Thyroxine (T4) free index in Serum or Plasma by calculation 1.4-3.8 Free T4 Index (T7) [facility]) ID Date Data Source [id number] 12/07/2020 09:16:00 AM EDT [place] ([facility]) Name Value Range Interpretation Code Description Data Christen rce(s) Supporting Document(s) Triglyceride [Mass/volume] in Serum or Plasma 251 mg/dL <150 Above high normal Triglycerides DARREN ([facility]) Cholesterol [Mass/volume] in Serum or Plasma 200 mg/dL <200 Above high normal Cholesterol, Total DARREN ([facility]) Cholesterol non HDL [Mass/volume] in Serum or Plasma 162 mg/dL_( calc) <130 Above high normal Non [facility] Cholesterol in LDL [Mass/volume] in Serum or Plasma by calculation 123 mg/dL_(calc) Above high normal LDL-cholesterol DARREN ([facility]) Cholesterol in HDL [Mass/volume] in Serum or Plasma 38 mg/dL > or = 40 Below low normal HDL Cholesterol [place] ([facility]) Cholesterol.total/Cholesterol in HDL [Mass Ratio] in Serum o r Plasma 5.3 (calc) <5.0 Above high normal Chol/hdlc Ratio DARREN ([facility]) ID Date Data Source [id number] 12/07/2020 09:16:00 AM EDT [place] ([facility]) Name Value Range Interpretation Code Description Data Christen rce(s) Supporting Document(s) Glucose [Mass/volume] in Serum or Plasma 103 mg/dL 65-99 Above high normal Glucose DARREN ([facility]) Glomerular filtration rate/1.73 sq M.pre dicted among blacks [Volume Rate/Area] in Serum, Plasma or Blood by Creatinine-based formula (CKD-EPI) 109 mL/min/1.73m2 > or = 60 eGFR DARREN ([facility]) Urea nitrogen [Mass/volume] in Serum or Plasma 10 mg/dL 7-25 Urea Nitrogen (BUN) DARREN ([facility]) Glomerular filtration rate/1.73 sq M.pre dicted among non-blacks [Volume Rate/Area] in Serum, Plasma or Blood by Creatinine-based formula (CKD-EPI) 94 mL/min/1.73m2 > or = 60 eGFR Non-afr. Martiniquais DARREN ([facility]) Creatinine [Mass/volume] in Serum or Plasma 1.02 mg/dL 0.60-1.35 Creatinine DARREN ([facility]) Carbon dioxide, total [Moles/volume] in Serum or Plasma 24 mmol/L 20-32 Carbon Dioxide DARREN ([facility]) Urea nitrogen/Creatinine [Mass Ratio] in Serum or Plasma not applic able 6-22 BUN/creatinine Ratio [place] ([facility]) Chloride [Moles/volume] in Serum or Plasma 108 mmol/L 98-110 Chloride D[facility] ([facility]) Sodium [Moles/volume] in Serum or Plasma 141 mmol/L 135-146 Sodium DARREN ([facility]) Potassium [Moles/volume] in Serum or Plasma 4.0 mmol/L 3.5-5.3 Potassium DARREN ([facility]) Albumin [Mass/volume] in Serum or Plasma 4.4 g/dL 3.6-5.1 Albumin [place] ([facility]) Calcium [Mass/volume] in Serum or Plasma 9.0 mg/dL 8.6-10.3 Calcium [place] ([facility]) Globulin [Mass/volume] in Serum by calculation 2.2 g/dL_(calc) 1.9- 3.7 Globulin [place] ([facility]) Protein [Mass/volume] in Serum or Plasma 6.6 g/dL 6.1-8.1 Protein, Total [facility]) Bilirubin.total [Mass/volume] in Serum or Plasma 0.3 mg/dL 0.2-1 .2 Bilirubin, Total [place] ([facility]) Alkaline phosphatase [Enzymatic activity/volume] in Serum or Plasma 109 U/L 36-130 Alkaline Phosphatase [place] ([facility]) Albumin/Globulin [Mass Ratio] in Serum or Plasma 2.0 (calc) 1.0-2 .5 Albumin/globulin Ratio DARREN ([facility]) Aspartate aminotransferase [Enzymatic activity/volume] in Serum or Plasma 31 U/L 10-40 Ast [place] ([facility]) Alanine aminotransferase [Enzymatic activity/volume] in Seru m or Plasma 46 U/L 9-46 Alt D[facility] ([facility]) ID Date Data Source [id number] 12/07/2020 09:16:00 AM EDT [place] ([facility]) Name Value Range Interpretation Code Description Data Christen rce(s) Supporting Document(s) Triiodothyronine resin uptake (T3RU) in Serum or Plasma 27 % 22 -35 T3 Uptake [place] ([facility]) Thyroxine (T4) [Mass/volume] in Serum or Plasma 5.7 mcg/dL 4.9-10 .5 T4 (Thyroxine), Total [facility]) Thyroxine (T4) free index in Serum or Plasma by calculation 1.4-3.8 Free T4 Index (T7) DARREN ([facility]) Thyrotropin [Units/volume] in Serum or Plasma 0.81 mIU/L 0.40-4.50 Tsh [place] ([facility]) ID Date Data Source [id number] 12/07/2020 09:16:00 AM EDT DARREN ([facility]) Name Value Range Interpretation Code Description Data Christen rce(s) Supporting Document(s) Triglyceride [Mass/volume] in Serum or Plasma 251 mg/dL <150 Above high normal Triglycerides DARREN ([facility]) Cholesterol in LDL [Mass/volume] in Serum or Plasma by calculation 123 mg/dL_(calc) Above high normal LDL-cholesterol DARREN ([facility]) Cholesterol in HDL [Mass/volume] in Serum or Plasma 38 mg/dL > or = 40 Below low normal HDL Cholesterol D[facility] ([facility]) Cholesterol.total/Cholesterol in HDL [Mass Ratio] in Serum o r Plasma 5.3 (calc) <5.0 Above high normal Chol/hdlc Ratio D[place]EN ([facility]) Cholesterol [Mass/volume] in Serum or Plasma 200 mg/dL <200 Above high normal Cholesterol, Total DARREN ([facility]) Cholesterol non HDL [Mass/volume] in Serum or Plasma 162 mg/dL_( calc) <130 Above high normal Non HDL Cholesterol [facility] ([facility]) Procedure Social History Code Duration Value Status Description Data Source(s ) Smoking 04/19/2021 12:00:00 AM EDT Current every day smoker co mpleted Current every day smoker [facility] ([facility]) Smoking 12/22/2020 12:00:00 AM EDT Current every day smoker co mpleted Current every day smoker [facility] ([facility]) Smoking 10/20/2020 12:00:00 AM EDT Current every day smoker co mpleted Current every day smoker [facility] ([facility]) Smoking 08/25/2020 12:00:00 AM EST Current every day smoker co mpleted Current every day smoker [facility] ([facility]) Smoking 07/28/2020 12:00:00 AM EST Current every day smoker co mpleted Current every day smoker [facility] ([facility]) Smoking 06/21/2020 12:00:00 AM EST Current every day smoker co mpleted Current every day smoker [facility] ([facility]) Vital Signs ID Date Data Source [id number] Name Value Range Interpretation Code Description Data Source(s) Systolic blood pressure 118 mm[Hg] 118 mm[Hg] M EDAYDIN ([facility]) Diastolic blood pressure 70 mm[Hg] 70 mm[Hg] [facility] ([facility]) Body height 67 [in_i] 67 [in_i] [facility] ([facility]) 5'7" Body weight 230.00 [lb_av] 230.00 [lb_av] MEDEN T ([facility]) Body mass index (BMI) [Ratio] 36.0 kg/m2 36.0 k g/m2 [facility] ([facility]) [place] body weight 148 [lb_av] 148 [lb_av] [facility] Body weight 104.328 kg 104.328 kg [facility] ([facility]) Body surface area Derived from formula 2.15 m2 2.15 m2 [facility] ([facility]) Diastolic blood pressure 87 mm[Hg] 87 mm[Hg] [place] ([facility]) Body height 68 [in_i] 68 [in_i] DARREN ([facility]) Body mass index (BMI) [Ratio] 36.2 kg/m2 36.2 k g/m2 [facility] ([facility]) Systolic blood pressure 133 mm[Hg] 133 mm[Hg] A THENA ([facility]) Diastolic blood pressure 87 mm[Hg] 87 mm[Hg] DARREN ([facility]) Body weight 3808 [oz_av] 3808 [oz_av] [facility]EN ([facility]) Body height 68 [in_i] 68 [in_i] DARREN ([facility]) Body mass index (BMI) [Ratio] 36.2 kg/m2 36.2 k g/m2 D[facility] ([facility]) Systolic blood pressure 133 mm[Hg] 133 mm[Hg] [facility]) Body weight 3808 [oz_av] 3808 [oz_av] [place] ([facility]) Body height 68 [in_i] 68 [in_i] [place] ([facility]) Body height 68 [in_i] 68 [in_i] [facility] ([facility]) Diastolic blood pressure 79 mm[Hg] 79 mm[Hg] [facility] ([facility]) Body height 68 [in_i] 68 [in_i] [facility] ([facility]) Body mass index (BMI) [Ratio] 39 kg/m2 39 kg/ m2 [facility] ([facility]) Systolic blood pressure 126 mm[Hg] 126 mm[Hg] [facility] ([facility]) Body weight 4100 [oz_av] 4100 [oz_av] [place] ([facility]) Diastolic blood pressure 79 mm[Hg] 79 mm[Hg] [facility] ([facility]) Body height 68 [in_i] 68 [in_i] [facility] ([facility]) Body mass index (BMI) [Ratio] 39 kg/m2 39 kg/ m2 [facility] ([facility]) Systolic blood pressure 126 mm[Hg] 126 mm[Hg] [facility] ([facility]) Body weight 4100 [oz_av] 4100 [oz_av] [place] ([facility]) Diastolic blood pressure 79 mm[Hg] 79 mm[Hg] [facility] ([facility]) Body height 68 [in_i] 68 [in_i] [facility] ([facility]) Body mass index (BMI) [Ratio] 39 kg/m2 39 kg/ m2 [facility] ([facility]) Systolic blood pressure 126 mm[Hg] 126 mm[Hg] [facility] ([facility]) Body weight 4100 [oz_av] 4100 [oz_av] [facility] ([facility]) Systolic blood pressure 0 mm[Hg] Normal (applies t o non-numeric results) 0 mm[Hg] [facility] ([facility] Diastolic blood pressure 0 mm[Hg] Normal (applies to non-numeric results) 0 mm[Hg] [facility] ([facility]) Body height 0.00 in Normal (applies to non-numeric resu lts) 0.00 in [facility] ([facility]) Body weight Measured 0.00 lbs Normal (applies to n on-numeric results) 0.00 lbs [facility] ([facility]) Body mass index (BMI) [Ratio] 0.00 kg/m2 No rmal (applies to non-numeric results) 0.00 kg/m2 [facility] ([facility]) Body height 0.00 in Normal (applies to non-numeric resu lts) [facility] Body weight Measured 0.00 lbs Normal (applies to n on-numeric results) 0.00 lbs [facility] ([facility]) Body mass index (BMI) [Ratio] 0.00 kg/m2 No rmal (applies to non-numeric results) 0.00 kg/m2 [facility] ([facility]) Systolic blood pressure 0 mm[Hg] Normal (applies t o non-numeric results) 0 mm[Hg] [facility] Diastolic blood pressure 0 mm[Hg] Normal (applies to non-numeric results) 0 mm[Hg] [facility] Body height 0.00 in Normal (applies to non-numeric resu lts) 0.00 in [facility] ([facility]) Body weight Measured 0.00 lbs Normal (applies to n on-numeric results) 0.00 lbs [facility] ([facility]) Body mass index (BMI) [Ratio] 0.00 kg/m2 No rmal (applies to non-numeric results) 0.00 kg/m2 [facility] ([facility]) Systolic blood pressure 0 mm[Hg] Normal (applies t o non-numeric results) 0 mm[Hg] [facility] ([facility]) Diastolic blood pressure 0 mm[Hg] Normal (applies to non-numeric results) 0 mm[Hg] [facility] ([facility]) Patient Treatment Plan of Care Planned Activity Planned Date Details Description Data Source (s) vitamin B complex DARREN ([facility]) Trazodone Hydrochloride 50 MG Oral Tablet D[facility]EN ([facility]) tramadol hydrochloride 50 MG Oral Tablet [place] ([facility]) Sucralfate 1000 MG Oral Tablet [facility] ([facility]) quetiapine 100 MG Oral Tablet [place] ([facility]) Promethazine Hydrochloride 25 MG Oral Tablet [facility] ([facility]) meloxicam 15 MG Oral Tablet [place] ([facility]) Hydroxyzine Hydrochloride 50 MG Oral Tablet [facility] ([facility]) gabapentin 600 MG Oral Tablet [place] ([facility]) duloxetine 30 MG Delayed Release Oral Capsule [facility] ([facility]) vitamin B complex [facility] ([facility]) Trazodone Hydrochloride 50 MG Oral Tablet [place] ([facility]) tramadol hydrochloride 50 MG Oral Tablet [place] ([facility]) Sucralfate 1000 MG Oral Tablet [place] ([facility]) quetiapine 100 MG Oral Tablet [place] ([facility]) Promethazine Hydrochloride 25 MG Oral Tablet [place] ([facility]) meloxicam 15 MG Oral Tablet [place] ([facility]) Hydroxyzine Hydrochloride 50 MG Oral Tablet [place] ([facility]) gabapentin 600 MG Oral Tablet [place] ([facility]) duloxetine 30 MG Delayed Release Oral Capsule [facility] ([facility]) Trazodone Hydrochloride 50 MG Oral Tablet [place] ([facility]) tramadol hydrochloride 50 MG Oral Tablet [place] ([facility]) Sucralfate 1000 MG Oral Tablet [place] ([facility]) quetiapine 100 MG Oral Tablet [place] ([facility]) Promethazine Hydrochloride 25 MG Oral Tablet [facility] ([facility]) Hydroxyzine Hydrochloride 50 MG Oral Tablet [place] ([facility]) duloxetine 30 MG Delayed Release Oral Capsule [facility] ([facility])
== END 2021-04-26 02:49 | disposition home or self-care (01) ==
LOC: M ED 22:51
DX: S29.011A Strain of muscle and tendon of front wall of thorax, initial encounter (principal); X50.0XXA Overexertion from strenuous movement or load, initial encounter; Y92.9 Unspecified place or not applicable; Y93.89 Activity, other specified; Y99.9 Unspecified external cause status; M94.0 Chondrocostal junction syndrome [Tietze]; R00.0 Tachycardia, unspecified; I10 Essential (primary) hypertension; E78.5 Hyperlipidemia, unspecified; M54.9 Dorsalgia, unspecified; K21.9 Gastro-esophageal reflux disease without esophagitis; Z79.899 Other long term (current) drug therapy

== ENCOUNTER 2021-06-15 23:13 | Emergency (ER) | payer OTHER ==
[~2021-06-15] VITALS: Ht 170.2 cm; Wt 96.4 kg
[~2021-06-15 23:13] MED LIST changes: +CARA1TAB6 PO; +GABA800T4 PO; -HALO5TA PO; +HALO5TAB33 PO; +OMEP-173 PO; -OMEP-218 PO; +ONDA4TAB6 PO; +QUET100T2 PO; +SUCR1TA PO; +TIZA10TA; +TIZA10TA PO; -TIZA4TAB4; -TIZA4TAB4 PO
[2021-06-15 23:14] VITALS: BP 119/82
[2021-06-16 01:30] LABS: BASO # 0.1 10^3/uL (0.0-0.2); BASO % 0.6 % (0.0-1.0); EOS # 0.3 10^3/uL (0.0-0.5); EOS % 3.3 % (0.0-3.0); HEMATOCRIT 43.3 % (42.0-52.0); HEMOGLOBIN 14.9 g/dl (13.5-17.5); LYMPH # 3.5 10^3/uL (1.5-5.0); LYMPH % 33.8 % (24.0-44.0); MEAN CORPUSCULAR HEMOGLOBIN 29.7 pg (27.0-33.0); MEAN CORPUSCULAR HGB CONC 34.4 g/dl (32.0-36.5); MEAN CORPUSCULAR VOLUME 86.3 fl (80.0-96.0); MONO % 9.3 % (2.0-8.0); NEUTROPHILS # 5.4 10^3/uL (1.5-8.5); NEUTROPHILS % 52.7 % (36.0-66.0); PLATELET COUNT, AUTOMATED 274 10^3/uL (150-450); RED BLOOD COUNT 5.02 10^6/uL (4.30-6.10); WHITE BLOOD COUNT 10.2 10^3/uL (4.0-10.0)
[2021-06-16] MEDS ORDERED: ALBUTEROL 90 MCG/ACT 8GM HFA INHALER INH ONE (02:10)
[2021-06-16] MEDS ORDERED: VENTAER INH (02:37)
== END 2021-06-16 03:49 | disposition home or self-care (01) ==
LOC: MERGE 23:13 → M ED 23:13
DX: J98.01 Acute bronchospasm (principal); R06.02 Shortness of breath; I10 Essential (primary) hypertension; K21.9 Gastro-esophageal reflux disease without esophagitis; Z79.899 Other long term (current) drug therapy

== ENCOUNTER 2021-07-01 01:09 | Emergency (ER) | payer OTHER ==
[~2021-07-01] VITALS: Ht 170.2 cm; Wt 102.1 kg
[~2021-07-01 01:09] MED LIST changes: +HALO5TA PO; -HALO5TAB33 PO; -OMEP-173 PO; +OMEP-218 PO; -TIZA10TA; -TIZA10TA PO; +TIZA4TAB4; +TIZA4TAB4 PO; +VENTAER INH
[2021-07-01 01:10] VITALS: BP 117/70
== END 2021-07-01 05:55 | disposition left against medical advice (07) ==
LOC: M ED 01:09
DX: Z53.21 Procedure and treatment not carried out due to patient leaving prior to being seen by health care provider (principal)

== ENCOUNTER 2021-07-23 03:10 | Emergency (ER) | payer OTHER ==
[~2021-07-23] VITALS: Ht 170.2 cm; Wt 102.3 kg
[~2021-07-23 03:10] MED LIST changes: -HALO5TA PO; +HALO5TAB33 PO; +OMEP-173 PO; -OMEP-218 PO; +TIZA10TA; +TIZA10TA PO; -TIZA4TAB4; -TIZA4TAB4 PO
[2021-07-23] MEDS ORDERED: GABA800T4 (03:27)
[2021-07-23 07:29] VITALS: BP 138/84
== END 2021-07-23 07:40 | disposition home or self-care (01) ==
LOC: M ED 03:10
DX: F41.9 Anxiety disorder, unspecified (principal); F32.9 Major depressive disorder, single episode, unspecified; I10 Essential (primary) hypertension; Z79.899 Other long term (current) drug therapy

== ENCOUNTER 2021-08-01 22:32 | Emergency (ER) | payer OTHER ==
[~2021-08-01] VITALS: Ht 170.2 cm; Wt 100.9 kg
[~2021-08-01 22:32] MED LIST changes: +GABA800T4
[2021-08-01 22:33] VITALS: BP 131/68
== END 2021-08-02 02:16 | disposition left against medical advice (07) ==
LOC: M ED 22:32
DX: Z53.21 Procedure and treatment not carried out due to patient leaving prior to being seen by health care provider (principal)

== ENCOUNTER 2021-10-26 00:05 | Emergency (ER) | payer OTHER ==
[~2021-10-26] VITALS: Ht 170.2 cm; Wt 104.2 kg
[2021-10-26] MEDS ORDERED: busPIRone 10 MG TAB PO ONE (00:40)
[2021-10-26] MEDS ORDERED: DULoxetine 30MG CAPSULE (CYMBALTA) PO ONE (00:40)
[2021-10-26] MEDS ORDERED: QUEtiapine FUMARATE 100 MG TAB PO ONE (00:40)
[2021-10-26] MEDS ORDERED: BUSP10TA PO (02:04)
[2021-10-26] MEDS ORDERED: DULO1CAP6 PO (02:04)
[2021-10-26] MEDS ORDERED: SERO1TAB2 PO (02:04)
[2021-10-26 02:28] VITALS: BP 96/64
== END 2021-10-26 02:30 | disposition home or self-care (01) ==
LOC: M ED 00:05
DX: F19.139 Other psychoactive substance abuse with withdrawal, unspecified (principal); R00.0 Tachycardia, unspecified; I10 Essential (primary) hypertension; F41.9 Anxiety disorder, unspecified; F32.9 Major depressive disorder, single episode, unspecified; Z79.899 Other long term (current) drug therapy

== ENCOUNTER → 2021-11-10 | Outpatient (CLI) | payer OTHER ==
[~2021-11-10] MED LIST changes: +SERO1TAB2 PO
== END ==
LOC: M RAD 17:08
PROVIDERS: ATTEND Family Medicine Addiction Medicine
DX: M25.572 Pain in left ankle and joints of left foot (principal)

== ENCOUNTER 2023-07-09 18:30 | Emergency (ER) | payer MEDICAID, OTHER, SELFPAY ==
[~2023-07-09] VITALS: Ht 172.7 cm; Wt 92.5 kg
[~2023-07-09 18:30] MED LIST changes: +ALBU6.7H6 INH; +DIPH-435 PO; -DIPH25CA32 PO; -GABA-283 PO; +GABA-284 PO; +MECL-209 PO; -MECL1TAB31 PO; -MIRT-62 PO; +MIRT-88 PO; -PROV108A INH
[2023-07-09 19:53] LABS: BASO # 0.1 10^3/uL (0.0-0.2); BASO % 0.5 % (0.0-1.0); EOS # 0.2 10^3/uL (0.0-0.5); EOS % 1.6 % (0.0-3.0); HEMATOCRIT 45.9 % (42.0-52.0); HEMOGLOBIN 16.1 g/dl (13.5-17.5); LYMPH # 2.7 10^3/uL (1.5-5.0); LYMPH % 25.5 % (24.0-44.0); MEAN CORPUSCULAR HEMOGLOBIN 30.3 pg (27.0-33.0); MEAN CORPUSCULAR HGB CONC 35.1 g/dl (32.0-36.5); MEAN CORPUSCULAR VOLUME 86.4 fl (80.0-96.0); MONO # 0.8 10^3/uL (0.0-0.8); MONO % 7.5 % (2.0-8.0); NEUTROPHILS # 6.8 10^3/uL (1.5-8.5); NEUTROPHILS % 64.5 % (36.0-66.0); PLATELET COUNT, AUTOMATED 270 10^3/uL (150-450); RED BLOOD COUNT 5.31 10^6/uL (4.30-6.10); WHITE BLOOD COUNT 10.5 10^3/uL (4.0-10.0)
[2023-07-09 20:07] LABS: LIPASE 45 U/L (12-53)
[2023-07-09 20:10] LABS: ALBUMIN 4.2 G/DL (3.2-5.2); ALKALINE PHOSPHATASE 99 U/L (46-116); ALT/SGPT 59 U/L (7.0-40); AST/SGOT 30 U/L (<34); BILIRUBIN,DIRECT 0.1 MG/DL (<0.4); BILIRUBIN,TOTAL 0.3 MG/DL (0.3-1.2); BLOOD UREA NITROGEN 17 MG/DL (9-23); CALCIUM LEVEL 9.4 MG/DL (8.5-10.1); CARBON DIOXIDE LEVEL 27 MMOL/L (20-31); CHLORIDE LEVEL 108 MMOL/L (98-107); CREATININE FOR GFR 0.85 MG/DL (0.70-1.30); GLOMERULAR FILTRATION RATE > 60.0 (>60); GLUCOSE, FASTING 140 MG/DL (60-100); POTASSIUM SERUM 4.3 MMOL/L (3.5-5.1); SODIUM LEVEL 142 MMOL/L (136-145); TOTAL PROTEIN 6.7 G/DL (5.7-8.2)
[2023-07-09] MEDS ORDERED: MAALOX 30 ML SUSP *UDC PO ONE (22:20)
[2023-07-09] MEDS ORDERED: OMEP-173 PO (23:16)
[2023-07-09 23:19] VITALS: BP 129/86; TEMP 97.3; O2SAT 97
== END 2023-07-09 23:20 | disposition home or self-care (01) ==
LOC: M ED 18:30
DX: R10.13 Epigastric pain (principal); K31.7 Polyp of stomach and duodenum; Z88.8 Allergy status to other drugs, medicaments and biological substances

== ENCOUNTER 2023-07-15 19:19 | Emergency (ER) | payer MEDICAID, OTHER ==
[~2023-07-15] VITALS: Ht 172.7 cm; Wt 90.1 kg
[2023-07-15 21:55] LABS: BASO % 0.2 % (0.0-1.0); EOS # 0.1 10^3/uL (0.0-0.5); HEMATOCRIT 46.1 % (42.0-52.0); HEMOGLOBIN 16.2 g/dl (13.5-17.5); LYMPH # 3.4 10^3/uL (1.5-5.0); LYMPH % 42.7 % (24.0-44.0); MEAN CORPUSCULAR HEMOGLOBIN 29.9 pg (27.0-33.0); MEAN CORPUSCULAR HGB CONC 35.1 g/dl (32.0-36.5); MEAN CORPUSCULAR VOLUME 85.1 fl (80.0-96.0); MONO # 0.9 10^3/uL (0.0-0.8); MONO % 10.7 % (2.0-8.0); NEUTROPHILS # 3.6 10^3/uL (1.5-8.5); NEUTROPHILS % 45.3 % (36.0-66.0); PLATELET COUNT, AUTOMATED 259 10^3/uL (150-450); RED BLOOD COUNT 5.42 10^6/uL (4.30-6.10)
[2023-07-15 22:18] LABS: LIPASE 36 U/L (12-53)
[2023-07-15 22:19] LABS: ALBUMIN 4.2 G/DL (3.2-5.2); ALKALINE PHOSPHATASE 83 U/L (46-116); ALT/SGPT 48 U/L (7.0-40); AST/SGOT 26 U/L (<34); BILIRUBIN,DIRECT 0.1 MG/DL (<0.4); BILIRUBIN,TOTAL 0.3 MG/DL (0.3-1.2); BLOOD UREA NITROGEN 9 MG/DL (9-23); CALCIUM LEVEL 9.4 MG/DL (8.5-10.1); CARBON DIOXIDE LEVEL 27 MMOL/L (20-31); CHLORIDE LEVEL 109 MMOL/L (98-107); CREATININE FOR GFR 0.72 MG/DL (0.70-1.30); GLOMERULAR FILTRATION RATE > 60.0 (>60); GLUCOSE, FASTING 93 MG/DL (60-100); POTASSIUM SERUM 4.1 MMOL/L (3.5-5.1); SODIUM LEVEL 142 MMOL/L (136-145); TOTAL PROTEIN 6.8 G/DL (5.7-8.2)
[2023-07-16] MEDS ORDERED: KETOROLAC 30 MG/ML 1ML VIAL IV ONE (01:30)
[2023-07-16] MEDS ORDERED: ONDANSETRON 4MG 2ML VIAL IV ONE (01:30)
[2023-07-16 05:35] VITALS: BP 117/67; TEMP 97.9; O2SAT 98
== END 2023-07-16 05:46 | disposition home or self-care (01) ==
LOC: M ED 19:19
DX: K82.8 Other specified diseases of gallbladder (principal); Z88.8 Allergy status to other drugs, medicaments and biological substances; Z79.51 Long term (current) use of inhaled steroids; Z79.899 Other long term (current) drug therapy
CPT/HCPCS: 76705; 80048; 80076; 83690; 85025; 96374; 99284; J1885; J2405

== ENCOUNTER → 2023-08-07 | Outpatient (CLI) | payer MEDICAID ==
[~2023-08-07] MED LIST changes: +PROHANCE 279.3MG/ML 15ML VIAL ONE; +PROHANCE 279.3MG/ML 5ML VIAL ONE
== END ==
LOC: M PLAIMG 07:48
PROVIDERS: ATTEND Family Medicine Addiction Medicine
DX: N28.1 Cyst of kidney, acquired (principal)
CPT/HCPCS: 74183; A9576

== ENCOUNTER → 2023-08-16 | Outpatient (CLI) | payer MEDICAID ==
[~2023-08-16] MED LIST changes: -PROHANCE 279.3MG/ML 15ML VIAL ONE; -PROHANCE 279.3MG/ML 5ML VIAL ONE
== END ==
LOC: M RAD 11:42
PROVIDERS: ATTEND Surgery
DX: R10.11 Right upper quadrant pain (principal)
CPT/HCPCS: 78227; A9537